=== PATIENT | female | born 1955 | race Caucasian/White ===

== ENCOUNTER → 2019-06-13 | Outpatient (CLI) | payer SELFPAY | PROVIDERS: Family Provider Physician Assistant Medical; Visit Provider Internal Medicine Medical Oncology | DX: C50.812 Malignant neoplasm of overlapping sites of left female breast (principal); C79.51 Secondary malignant neoplasm of bone; Z79.818 Long term (current) use of other agents affecting estrogen receptors and estrogen levels; I10 Essential (primary) hypertension; E78.5 Hyperlipidemia, unspecified; E11.9 Type 2 diabetes mellitus without complications; I25.10 Atherosclerotic heart disease of native coronary artery without angina pectoris; J45.909 Unspecified asthma, uncomplicated; K21.9 Gastro-esophageal reflux disease without esophagitis; F32.9 Major depressive disorder, single episode, unspecified; Z17.0 Estrogen receptor positive status [ER+]; Z92.3 Personal history of irradiation; Z95.5 Presence of coronary angioplasty implant and graft; Z95.1 Presence of aortocoronary bypass graft; Z79.2 Long term (current) use of antibiotics | CPT/HCPCS: 99214 ==

== ENCOUNTER 2019-10-05 10:55 | Outpatient (CLI) | payer MEDICARE, OTHER, SELFPAY ==
[2019-10-05 14:57] LABS: Basophils # 0.1 10^3/uL (0.0-0.1); Basophils % 0.8 %; Eosinophils # 0.2 10^3/uL (0.0-0.8); Eosinophils % 3.1 %; Hematocrit 42.4 % (37.0-47.0); Hemoglobin 13.3 g/dL (11.5-15.3); Lymphocytes # 1.7 10^3/uL (0.8-4.8); Lymphocytes % 28.5 %; Mean Corpuscular HGB Conc 31.4 g/dL (30.0-36.0); Mean Corpuscular Hemoglobin 29.8 pg (28.0-34.0); Mean Corpuscular Volume 94.9 fL (81-99); Monocytes # 0.3 10^3/uL (0.2-0.9); Monocytes % 5.1 %; Neutrophils # 3.8 10^3/uL (1.8-7.7); Neutrophils % 62.2 %; Nucleated Red Blood Cells % 0 %; Platelet Count 227 10^3/cmm (130-400); Red Blood Count 4.47 10^6/uL (4.1-5.3); White Blood Count 6.1 10^3/uL (4.0-10.0)
[2019-10-05 15:41] LABS: Alanine Aminotransferase 39 U/L (0-33); Albumin Level 3.9 g/dL (3.5-5.2); Alkaline Phosphatase 160 IU/L (35-105); Anion Gap 18.6 (5-19); Aspartate Amino Transferase 25 U/L (0-32); Blood Urea Nitrogen 12 mg/dL (8-23); Calcium 9.8 mg/dL (8.5-10.5); Carbon Dioxide 28 mmol/L (22-29); Chloride 96 mmol/L (98-107); Globulin 2.4 g/dL (1.3-4.6); Glomerular Filtration Rate 55.5 mL/min (90-130); Glucose 421 mg/dL (65-115); Osmolality Calculated 300 mOsm/kg (285-295); Potassium 4.6 mmol/L (3.5-5.1); Sodium 138 mmol/L (136-145); Total Bilirubin 0.3 mg/dL (0.15-1.2); Total Protein 6.3 g/dL (6.6-8.7)
[2019-10-06 06:06] LABS: CA 27.29 <8 U/mL (<38)
== END 2019-10-05 10:56 | disposition home or self-care (01) ==
LOC: ONCMED 15:26
PROVIDERS: PCP Physician Assistant Medical; Visit Provider Internal Medicine Medical Oncology
DX: C50.812 Malignant neoplasm of overlapping sites of left female breast (principal); C79.51 Secondary malignant neoplasm of bone
CPT/HCPCS: 36415; 80053; 85025; 86300

== ENCOUNTER 2019-10-06 06:50 | Outpatient (CLI) | payer MEDICARE, OTHER, SELFPAY ==
--- NOTE | 2019-10-06 15:10 | ONC FU_ITS ---
Dr. Gonzalez Patient Follow-Up Note Patient: Edie Dupont Unit #: [id number]: [id number] Dicatated By: Justo Gonzalez M.D.Date of Visit:Oct 06, 2019 Onc Med Follow-up/Prog Note Chief Complaint: Breast cancer/lung cancer. History of Present Illness: This is a 64 year-old woman with grade 3 invasive lobular carcinoma of the left breast, stage IV (T2, N0, M1), ER/KS positive and HER-2/olivier negative. She was diagnosed with cancer of the left breast in 2014. Ultrasound guided needle biopsy at the 3 o'clock position of the left breast on 04/08/2015 showed grade 2 invasive ductal carcinoma, ER positive at 98% and KS positive at 100%. The Ki-67 was unfavorable at 31.34%. It was negative for overexpression of HER-2/olivier, 1+ by IHC. On 06/17/2015 she underwent left breast lumpectomy with axillary lymph node sampling, including sentinel lymph node biopsy. Pathology showed grade 3 invasive pleomorphic lobular carcinoma measuring 3.8 cm in maximum diameter. There was no involvement in 1 sentinel lymph node and no involvement in an additional 2 axillary lymph nodes. Her disease was pathologic stage IIA (T2, N0, M0). She had been receiving medical oncology care with Dr. Jenae Lane, and she had been on adjuvant hormonal therapy with letrozole 2.5 mg daily. During evaluation for the breast cancer, she was found to have a 1.7 cm right lower lobe lung nodule, confirmed to be adenocarcinoma by needle biopsy on 07/31/2015. This was presumed to be a second primary nonsmall cell carcinoma, stage IA (T1a, N0, M0). She was treated with SBRT, completed on 11/03/2017 to a total dose of 5000 cGy. I had seen her initially on 11/09/2017. At that time she reported increasing pain in the lower back and lower buttock area radiating down the back of both legs. The pain was relieved with rest. A recent MRI of the lumbar spine from 10/26/2017 reported a mild broad-based disc protrusion at L4-5 with superior migration in the central and right subarticular zones. There was mild spinal stenosis and right recess stenosis. Also noted were multiple focal bone lesions, the largest in the L1 and L4 vertebral bodies is a 14 mm. The appearance was felt to be consistent with blastic metastatic involvement. It appeared to be a new finding compared to previous MRI of the thoracic spine from July 2008. At least initially I had recommended that she just continue hormonal therapy with letrozole pending further evaluation. Subsequent to her initial visit I had reviewed the MRI studies with a radiologist, and there was an interval increase in size of the L1 and L4 vertebral bodies. She had further evaluation with bone scan on 02/09/2018. It showed a new focus of bony activity involving the sternum inferiorly but no change in subtle increased activity at T8 and no change in subtle increased activity at the distal end of the right second or third rib. Review of the chest CT from 05/05/2016 showed a blastic lesion in the sternal body, a blastic lesion of the T8 vertebral body, and blastic lesion involving the distal end of the right second rib. There was no significant lumbar spine activity to correlate with the likely blastic metastatic lesions noted in the lumbar spine MRI at L1 and L4. There was arthritic type activity in both acromioclavicular joints, the left sternoclavicular joint, both knees, and the midtarsal regions of both feet. There was no abnormality on left knee radiograph to correlate with new increased uptake in the left distal femur or patella. She was seen for a followup visit on 02/15/2018. The findings on the imaging studies appeared to be consistent with slowly progressive metastatic bone involvement. As she was not symptomatic with it, she opted to just continue hormonal therapy with letrozole 2.5 mg daily. Her other medical illnesses include hypertension, hyperlipidemia, type II diabetes, coronary artery disease, asthma, GERD, JONES, peripheral neuropathy, and degenerative arthritis. She has history of depression. She is a nonsmoker. INTERIM HISTORY: Restaging CT scans of chest, abdomen, and pelvis on 11/14/2018 showed a focal irregular nodular subpleural opacity within the posterior aspect of the right lower lobe measuring 1.7 x 2.4 cm. The findings were felt to likely reflect post therapeutic change and appeared similar to prior studies. There was, however, increase in the degree of extensive bony metastatic disease. There were no other areas of metastatic involvement noted. I had seen her for a scheduled visit on 11/15/2018. With CT evidence of further progression of her bony metastatic disease, I had talked her about the possibility of transitioning her treatment to fulvestrant in combination with a CDK 4/6 inhibitor. Initially she was reluctant to change treatment, but eventually she did agree to begin a trial of therapy with fulvestrant in combination with abemacliclib. She then returned for a medication education visit, and after reviewing the possible side effects, she opted to defer treatment. She then had radiation oncology consultation with Dr. Mara Pearson in [place], and she was given palliative radiation to the lumbar spine. She completed treatment on 03/17/2019 to a total dose of 3000 cGy. On 03/29/2019 she began systemic therapy with fulvestrant in combination with abemacliclib. At day 15 of her first cycle of fulvestrant/abemacliclib her treatment was put on hold due to a significant increase in her liver enzymes, which included an SGOT of 784/45 and SGPT 420/45, both of which had been normal at baseline. The alkaline phosphatase had increased to 528, though it had previously been elevated, presumably due to the metastatic bone involvement. At the time she was having fatigue, anorexia, and back pain. The symptoms improved after stopping treatment, and her liver enzymes also improved. As of her 04/19/2019 she continued her treatment with fulvestrant, but without the CDK 4/6 inhibitor. She is seen for a follow-up visit by Telehealth. She has been feeling good generally. She has had good energy and she has been doing all of her normal activities. Her ECOG score is 0. Her appetite is good. She has not had fever. She had a terrible episode of hot flushing and sweating after her last fulvestrant injection. She otherwise has just occasional hot flashes. She has no shortness of breath, cough, or chest pain. She has no GI or complaints. She currently is not having any significant joint or bone pain. She says her back is much better. She does not complain of headache. She has numbness/tingling in her feet. The numbness in her hands has improved. Medications: Aspirin 1 Tablet (of 81 mg) Tablet, enteric coated Oral daily, Effexor XR 1 Tablet (of 75 mg) Capsule SR 24 HR Oral daily, Furosemide 1 Tablet (of 20 mg) Oral t.i.d., Gabapentin 1 Tablet (of 900 mg) Oral t.i.d., Isosorbide Mononitrate ER 1 Tablet (of 30 mg) Tablet SR 24 HR Oral b.i.d., Klor-Con 10 1 Tablet (of 10 meq) Tablet, controlled release Oral daily, Lansoprazole 1 drop(s) Liquid Oral daily, Levothyroxine Sodium 1 Tablet (of 75 mcg) Oral daily, Lisinopril 1 Tablet (of 5 mg) Oral daily, Metoprolol Tartrate 1 Tablet (of 100 mg) Oral b.i.d., NovoLIN N (100 Units/mL) Subcutaneous Take as Directed Allergies: Lyrica, Penicillins, Proventil HFA, and Sulfa Antibiotics. Review of Systems: Constitutional - She has been feeling pretty good and has been doing all her normal activities. Her appetite is good and weight is stable. No fever or chills. She had significant hot flashes with sweating following her last fulvestrant injection. ECOG score is 0, ENMT - No sinus congestion/drainage. No mouth sores. No sore throat or difficulty swallowing, Hematologic/Lymphatic - No abnormal bruising or bleeding, Respiratory - No shortness of breath. No cough. No pleuritic pain or hemoptysis, Cardiovascular - No angina pain. No palpitations, Gastrointestinal - No nausea or vomiting. Her heartburn is adequately managed with medicaiton. No diarrhea or constipation. No blood in the stool or black stools, Genitourinary (F) - No dysuria or hematuria. No urinary frequency. No urgency or incontinence, Musculoskeletal - No joint or bone pain. Her back pain is improved, Integumentary - No skin complications, Neurologic - No headache or dizziness. She has numbness and tingling in her feet. The numbness in her hands has improved, Psychiatric - No anxiety or depression. No insomnia. Physical Examination: Constitutional - She looks good generally. Lab/Imaging: CBC shows hemoglobin 13.3 g, white blood cell count 6100, and platelet count 227,000. Comprehensive metabolic profile shows stable renal function with BUN 12 and creatinine 1.0 mg/dL. Her blood sugar is significantly elevated, as always. SGOT is normal at 25 U/L with SGPT slightly elevated at 39 U/L. Alkaline phosphatase remains mildly elevated but stable at 160/105 IU/L. Bilirubin is normal at 0.5 mg/dL. Impression: 1. Patient with grade 3 lobular carcinoma of the left breast, ER/KS positive and HER-2/olivier negative. Her disease was stage IIA at initial diagnosis in July 2014. She has been on hormonal therapy with letrozole following lumpectomy and axillary lymph node sampling. 2. In October 2015 she underwent Cyber[employer]ife radiosurgery for adenocarcinoma involving the lower lobe of the right lung, stage IA (T1a, N0, M0). 3. 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 4. She currently is on treatment with doxycycline for tick fever. Her other medical illnesses include: 5. Hypertension. 6. Dyslipidemia. 7. Type II diabetes. 8. Coronary artery disease with previous angioplasty/stent placement. 9. Asthma. 10. GERD. 11. She has history of depression. Overall, her imaging studies and clinical course had been consistent with slowly progressive metastatic breast cancer. Her restaging CT scans on 11/14/2018 did show more significant progression of the metastatic bone involvement, though she was still not overtly symptomatic. However, given the extent of disease progression, I had recommended changing treatment to fulvestrant in combination with abemacliclib. Initially she had agreed to it, but following her teaching visit and reviewing the potential side effects, she opted to defer treatment. She then had radiation oncology consultation with Dr. Mara Pearson in [place]. She underwent palliative radiation to the lumbar spine. She completed treatment on 03/17/2019 to a total dose of 3000 cGy. She tolerated it well. On 03/29/2019 she began a trial of second line systemic therapy with fulvestrant in combination with abemacliclib. Her treatment was put on hold at day 15 due to a significant increase in her liver enzymes. During subsequent follow-up the liver enzymes recovered to baseline with some residual elevation of the alkaline phosphatase, which I assumed it was related to the metastatic bone involvement. She has since then continued treatment with fulvestrant alone. She has tolerated well. She has continued to show gradual improvement in her clinical status. Thus far there is been no evidence of progression of the breast cancer. Plan: She continues treatment with fulvestrant 500 mg by intramuscular injection monthly. Her other medications remain the same. I will see her again in 3 months, or sooner as needed. Signed By: Justo Gonzalez M.D. <<Signature on File>>
== END 2019-10-06 06:51 | disposition home or self-care (01) ==
LOC: ONCMED 06:52
PROVIDERS: PCP Physician Assistant Medical; Visit Provider Internal Medicine Medical Oncology
DX: C50.812 Malignant neoplasm of overlapping sites of left female breast (principal); C79.51 Secondary malignant neoplasm of bone; Z17.0 Estrogen receptor positive status [ER+]; I10 Essential (primary) hypertension; E78.5 Hyperlipidemia, unspecified; E11.9 Type 2 diabetes mellitus without complications; I25.10 Atherosclerotic heart disease of native coronary artery without angina pectoris; J45.909 Unspecified asthma, uncomplicated; K21.9 Gastro-esophageal reflux disease without esophagitis; Z79.818 Long term (current) use of other agents affecting estrogen receptors and estrogen levels; Z86.59 Personal history of other mental and behavioral disorders

== ENCOUNTER 2020-01-16 13:52 | Outpatient (CLI) | payer MEDICARE, OTHER, SELFPAY ==
--- NOTE | 2020-01-17 07:22 | ONC FU_ITS ---
Dr. Gonzalez Patient Follow-Up Note Patient: Edie Dupont Unit #: [id number]: 1955 Dicatated By: Justo Gonzalez M.D.Date of Visit:Jan 16, 2020 Onc Med Follow-up/Prog Note Chief Complaint: Breast cancer/lung cancer. History of Present Illness: This is a 64 year-old woman with grade 3 invasive lobular carcinoma of the left breast, stage IV (T2, N0, M1), ER/DC positive and HER-2/olivier negative. She was diagnosed with cancer of the left breast in 2014. Ultrasound guided needle biopsy at the 3 o'clock position of the left breast on 04/08/2015 showed grade 2 invasive ductal carcinoma, ER positive at 98% and DC positive at 100%. The Ki-67 was unfavorable at 31.34%. It was negative for overexpression of HER-2/olivier, 1+ by IHC. On 06/17/2015 she underwent left breast lumpectomy with axillary lymph node sampling, including sentinel lymph node biopsy. Pathology showed grade 3 invasive pleomorphic lobular carcinoma measuring 3.8 cm in maximum diameter. There was no involvement in 1 sentinel lymph node and no involvement in an additional 2 axillary lymph nodes. Her disease was pathologic stage IIA (T2, N0, M0). She had been receiving medical oncology care with Dr. Jenae Lane, and she had been on adjuvant hormonal therapy with letrozole 2.5 mg daily. During evaluation for the breast cancer, she was found to have a 1.7 cm right lower lobe lung nodule, confirmed to be adenocarcinoma by needle biopsy on 07/31/2015. This was presumed to be a second primary nonsmall cell carcinoma, stage IA (T1a, N0, M0). She was treated with SBRT, completed on 11/03/2017 to a total dose of 5000 cGy. I had seen her initially on 11/09/2017. At that time she reported increasing pain in the lower back and lower buttock area radiating down the back of both legs. The pain was relieved with rest. A recent MRI of the lumbar spine from 10/26/2017 reported a mild broad-based disc protrusion at L4-5 with superior migration in the central and right subarticular zones. There was mild spinal stenosis and right recess stenosis. Also noted were multiple focal bone lesions, the largest in the L1 and L4 vertebral bodies is a 14 mm. The appearance was felt to be consistent with blastic metastatic involvement. It appeared to be a new finding compared to previous MRI of the thoracic spine from July 2008. At least initially I had recommended that she just continue hormonal therapy with letrozole pending further evaluation. Subsequent to her initial visit I had reviewed the MRI studies with a radiologist, and there was an interval increase in size of the L1 and L4 vertebral bodies. She had further evaluation with bone scan on 02/09/2018. It showed a new focus of bony activity involving the sternum inferiorly but no change in subtle increased activity at T8 and no change in subtle increased activity at the distal end of the right second or third rib. Review of the chest CT from 05/05/2016 showed a blastic lesion in the sternal body, a blastic lesion of the T8 vertebral body, and blastic lesion involving the distal end of the right second rib. There was no significant lumbar spine activity to correlate with the likely blastic metastatic lesions noted in the lumbar spine MRI at L1 and L4. There was arthritic type activity in both acromioclavicular joints, the left sternoclavicular joint, both knees, and the midtarsal regions of both feet. There was no abnormality on left knee radiograph to correlate with new increased uptake in the left distal femur or patella. She was seen for a followup visit on 02/15/2018. The findings on the imaging studies appeared to be consistent with slowly progressive metastatic bone involvement. As she was not symptomatic with it, she opted to just continue hormonal therapy with letrozole 2.5 mg daily. Her other medical illnesses include hypertension, hyperlipidemia, type II diabetes, coronary artery disease, asthma, GERD, JONES, peripheral neuropathy, and degenerative arthritis. She has history of depression. She is a nonsmoker. INTERIM HISTORY: Restaging CT scans of chest, abdomen, and pelvis on 11/14/2018 showed a focal irregular nodular subpleural opacity within the posterior aspect of the right lower lobe measuring 1.7 x 2.4 cm. The findings were felt to likely reflect post therapeutic change and appeared similar to prior studies. There was, however, increase in the degree of extensive bony metastatic disease. There were no other areas of metastatic involvement noted. I had seen her for a scheduled visit on 11/15/2018. With CT evidence of further progression of her bony metastatic disease, I had talked her about the possibility of transitioning her treatment to fulvestrant in combination with a CDK 4/6 inhibitor. Initially she was reluctant to change treatment, but eventually she did agree to begin a trial of therapy with fulvestrant in combination with abemacliclib. She then returned for a medication education visit, and after reviewing the possible side effects, she opted to defer treatment. She then had radiation oncology consultation with Dr. Mara Pearson in [place], and she was given palliative radiation to the lumbar spine. She completed treatment on 03/17/2019 to a total dose of 3000 cGy. On 03/29/2019 she began systemic therapy with fulvestrant in combination with abemacliclib. At day 15 of her first cycle of fulvestrant/abemacliclib her treatment was put on hold due to a significant increase in her liver enzymes, which included an SGOT of 784/45 and SGPT 420/45, both of which had been normal at baseline. The alkaline phosphatase had increased to 528, though it had previously been elevated, presumably due to the metastatic bone involvement. At the time she was having fatigue, anorexia, and back pain. The symptoms improved after stopping treatment, and her liver enzymes also improved. As of her 04/19/2019 she continued her treatment with fulvestrant, but without the CDK 4/6 inhibitor. She is seen for a follow-up visit. She has been feeling fine. She has good energy and activity tolerance. Her ECOG score is 0. She has good appetite. She has not had fever. She has terrible hot flashes and sweating, both during the daytime and at night. She has had sore throat off and on in association with an episode of bronchitis/asthma. It is getting better, but she still has some shortness of breath and cough, and she is still using Xopenex at bedtime. She does not complain of chest pain. She has no GI or complaints. She has had some pain in her right shoulder/deltoid area. She has no other joint or bone pain. She does not complain of headache. She says her numbness/tingling is not as bad now. Medications: Aspirin 1 Tablet (of 81 mg) Tablet, enteric coated Oral daily, Effexor XR 1 Tablet (of 150 mg) Capsule SR 24 HR Oral daily, Furosemide 1 Tablet (of 60 mg) Oral every am, Gabapentin 1 Tablet (of 900 mg) Oral b.i.d., Klor-Con 10 1 Tablet (of 10 meq) Tablet, controlled release Oral daily, Lansoprazole 1 drop(s) Liquid Oral daily, Levothyroxine Sodium 1 Tablet (of 75 mcg) Oral daily, Lisinopril 1 Tablet (of 5 mg) Oral daily, Metoprolol Tartrate 1 Tablet (of 100 mg) Oral b.i.d., NovoLIN N (100 Units/mL) Subcutaneous Take as Directed Allergies: Lyrica, Penicillins, Proventil HFA, and Sulfa Antibiotics. Review of Systems: Constitutional - She is feeling good. Her energy is good and she has normal activity without restrictions. Her appetite is good and weight is stable. No fevers. She is having terrible persistent hot flashes and sweating both day and night. ECOG score is 0, ENMT - No sinus congestion/drainage. No mouth sores. No sore throat or difficulty swallowing, Hematologic/Lymphatic - No abnormal bruising or bleeding, Respiratory - No shortness of breath. She has a cough, and she was recently treated for bronchitis/asthma. She is using Xopenex for it. No pleuritic pain or hemoptysis, Cardiovascular - No angina pain. No palpitations, Gastrointestinal - No nausea or vomiting. No heartburn or acid reflux. No diarrhea or constipation. No blood in the stool or black stools, Genitourinary (F) - No dysuria or hematuria. No urinary frequency. No urgency or incontinence, Musculoskeletal - She has been having some pain in the right shoulder/deltoid area. She has no other joint or bone pain, Integumentary - No skin complications, Neurologic - No headache. She has no more dizziness than usual. Her numbness/tingling is not as bad. No other focal neurologic symptoms, Psychiatric - No anxiety or depression. No insomnia. Vital Signs: Performed on Jan 16, 2020 14:19 Height - 61.00 in Weight - 181 lbs (LOW) BSA - 1.81 sq.m BMI - 34.20 (HIGH) Temperature - 97.5 F (LOW) Pulse - 67 /min Respiration - 16 /min BP - 122/60 mm(hg) O2 Sat - 98 % Pain - 0 Physical Examination: Constitutional - She looks good generally, Eyes - Sclerae nonicteric. Conjunctivae clear, ENMT - No lesions noted in the oral cavity, Hematologic/Lymphatic - No cervical, clavicular, or axillary adenopathy, Respiratory - Lungs are clear with good air movement bilaterally, Cardiovascular - Heart rhythm is regular. There is a II/ systolic murmur. There is no gallop or rub noted, Abdomen - Soft. Liver and spleen are not enlarged. There is no abdominal mass or ascites noted and there is no inguinal adenopathy, Extremities - No edema, Neurologic - No focal neurologic deficits noted. Lab/Imaging: Test performed on Jan 16, 2020 10:51 Glucose 293 mg/dL BUN 21 mg/dL Creatinine 0.85 mg/dL Cr Clearance (Est) 84.85 mL/min Sodium 136 mmol/L Potassium 5.0 mmol/L Chloride 98 mmol/L CO2 30 mmol/L Calcium 9.7 mg/dL Protein, Total 6.4 g/dL Albumin 3.9 g/dL Bilirubin, Total 0.3 mg/dL Alkaline Phosphatase 158 IU/L AST (SGOT) 18 IU/L ALT (SGPT) 34 IU/L WBC 6.6 10^9/L RBC 4.50 10^12/L HGB 13.5 g/dL HCT 40.1 % MCV 89.1 fl MCH 30.0 pg MCHC 33.7 g/dL RDW 11.9 % Platelet Count 217 10^9/L MPV 11.6 fL Neutrophils (Gran) 4.15 10^9/L Lymphocytes 1.62 10^9/L Monocytes 0.33 10^9/L Eosinophils 0.39 10^9/L Basophils 0.09 10^9/L Manual Lymphocytes 25 % Manual Monocytes 5 % Manual Eosinophils 6 % Manual Basophils 1 % Impression: 1. Patient with grade 3 lobular carcinoma of the left breast, ER/DC positive and HER-2/olivier negative. Her disease was stage IIA at initial diagnosis in July 2014. She has been on hormonal therapy with letrozole following lumpectomy and axillary lymph node sampling. 2. In October 2015 she underwent [employer] radiosurgery for adenocarcinoma involving the lower lobe of the right lung, stage IA (T1a, N0, M0). 3. 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 4. She currently is on treatment with doxycycline for tick fever. Her other medical illnesses include: 5. Hypertension. 6. Dyslipidemia. 7. Type II diabetes. 8. Coronary artery disease with previous angioplasty/stent placement. 9. Asthma. 10. GERD. 11. She has history of depression. Overall, her imaging studies and clinical course had been consistent with slowly progressive metastatic breast cancer. Her restaging CT scans on 11/14/2018 did show more significant progression of the metastatic bone involvement, though she was still not overtly symptomatic. However, given the extent of disease progression, I had recommended changing treatment to fulvestrant in combination with abemacliclib. Initially she had agreed to it, but following her teaching visit and reviewing the potential side effects, she opted to defer treatment. She then had radiation oncology consultation with Dr. Mara Pearson in [place]. She underwent palliative radiation to the lumbar spine. She completed treatment on 03/17/2019 to a total dose of 3000 cGy. She tolerated it well. On 03/29/2019 she began a trial of second line systemic therapy with fulvestrant in combination with abemacliclib. Her treatment was put on hold at day 15 due to a significant increase in her liver enzymes. During subsequent follow-up the liver enzymes recovered to baseline with some residual elevation of the alkaline phosphatase, which I assumed it was related to the metastatic bone involvement. She then continued treatment with fulvestrant alone. Thus far she has tolerated it well. During follow-up there has been gradual decline in the alkaline phosphatase level and she also has been showing gradual improvement in her performance status, so that she does appear to be showing response by clinical evaluation. Plan: She will continue treatment with fulvestrant 500 mg by intramuscular injection monthly. I will now add denosumab 120 mg by subcutaneous injection monthly for the metastatic bone involvement. Her other medications remain the same. I will see her again in 3 months. Signed By: Justo Gonzalez M.D. <<Signature on File>>
== END 2020-01-16 13:53 | disposition home or self-care (01) ==
PROVIDERS: PCP Physician Assistant Medical; Visit Provider Internal Medicine Medical Oncology
DX: C50.812 Malignant neoplasm of overlapping sites of left female breast (principal); C79.51 Secondary malignant neoplasm of bone; Z85.118 Personal history of other malignant neoplasm of bronchus and lung; A93.8 Other specified arthropod-borne viral fevers; Z79.2 Long term (current) use of antibiotics; I10 Essential (primary) hypertension; E78.5 Hyperlipidemia, unspecified; E11.9 Type 2 diabetes mellitus without complications; I25.10 Atherosclerotic heart disease of native coronary artery without angina pectoris; Z95.1 Presence of aortocoronary bypass graft; J45.909 Unspecified asthma, uncomplicated; K21.9 Gastro-esophageal reflux disease without esophagitis; Z79.818 Long term (current) use of other agents affecting estrogen receptors and estrogen levels; Z79.899 Other long term (current) drug therapy; Z92.3 Personal history of irradiation
CPT/HCPCS: 99214

== ENCOUNTER 2020-04-16 10:54 | Outpatient (CLI) | payer MEDICARE, OTHER, SELFPAY ==
--- NOTE | 2020-04-16 12:29 | ONC FU_ITS ---
Dr. Gonzalez Patient Follow-Up Note Patient: Edie Dupont Unit #: [id number]: 1955 Dicatated By: Justo Gonzalez M.D.Date of Visit:Apr 16, 2020 Onc Med Follow-up/Prog Note Chief Complaint: Breast cancer/lung cancer. History of Present Illness: This is a 64 year-old woman with grade 3 invasive lobular carcinoma of the left breast, stage IV (T2, N0, M1), ER/HI positive and HER-2/olivier negative. She was diagnosed with cancer of the left breast in 2014. Ultrasound guided needle biopsy at the 3 o'clock position of the left breast on 04/08/2015 showed grade 2 invasive ductal carcinoma, ER positive at 98% and HI positive at 100%. The Ki-67 was unfavorable at 31.34%. It was negative for overexpression of HER-2/olivier, 1+ by IHC. On 06/17/2015 she underwent left breast lumpectomy with axillary lymph node sampling, including sentinel lymph node biopsy. Pathology showed grade 3 invasive pleomorphic lobular carcinoma measuring 3.8 cm in maximum diameter. There was no involvement in 1 sentinel lymph node and no involvement in an additional 2 axillary lymph nodes. Her disease was pathologic stage IIA (T2, N0, M0). She had been receiving medical oncology care with Dr. Jenae Lane, and she had been on adjuvant hormonal therapy with letrozole 2.5 mg daily. During evaluation for the breast cancer, she was found to have a 1.7 cm right lower lobe lung nodule, confirmed to be adenocarcinoma by needle biopsy on 07/31/2015. This was presumed to be a second primary nonsmall cell carcinoma, stage IA (T1a, N0, M0). She was treated with SBRT, completed on 11/03/2017 to a total dose of 5000 cGy. I had seen her initially on 11/09/2017. At that time she reported increasing pain in the lower back and lower buttock area radiating down the back of both legs. The pain was relieved with rest. A recent MRI of the lumbar spine from 10/26/2017 reported a mild broad-based disc protrusion at L4-5 with superior migration in the central and right subarticular zones. There was mild spinal stenosis and right recess stenosis. Also noted were multiple focal bone lesions, the largest in the L1 and L4 vertebral bodies is a 14 mm. The appearance was felt to be consistent with blastic metastatic involvement. It appeared to be a new finding compared to previous MRI of the thoracic spine from July 2008. At least initially I had recommended that she just continue hormonal therapy with letrozole pending further evaluation. Subsequent to her initial visit I had reviewed the MRI studies with a radiologist, and there was an interval increase in size of the L1 and L4 vertebral bodies. She had further evaluation with bone scan on 02/09/2018. It showed a new focus of bony activity involving the sternum inferiorly but no change in subtle increased activity at T8 and no change in subtle increased activity at the distal end of the right second or third rib. Review of the chest CT from 05/05/2016 showed a blastic lesion in the sternal body, a blastic lesion of the T8 vertebral body, and blastic lesion involving the distal end of the right second rib. There was no significant lumbar spine activity to correlate with the likely blastic metastatic lesions noted in the lumbar spine MRI at L1 and L4. There was arthritic type activity in both acromioclavicular joints, the left sternoclavicular joint, both knees, and the midtarsal regions of both feet. There was no abnormality on left knee radiograph to correlate with new increased uptake in the left distal femur or patella. She was seen for a followup visit on 02/15/2018. The findings on the imaging studies appeared to be consistent with slowly progressive metastatic bone involvement. As she was not symptomatic with it, she opted to just continue hormonal therapy with letrozole 2.5 mg daily. Her other medical illnesses include hypertension, hyperlipidemia, type II diabetes, coronary artery disease, asthma, GERD, JONES, peripheral neuropathy, and degenerative arthritis. She has history of depression. She is a nonsmoker. INTERIM HISTORY: Restaging CT scans of chest, abdomen, and pelvis on 11/14/2018 showed a focal irregular nodular subpleural opacity within the posterior aspect of the right lower lobe measuring 1.7 x 2.4 cm. The findings were felt to likely reflect post therapeutic change and appeared similar to prior studies. There was, however, increase in the degree of extensive bony metastatic disease. There were no other areas of metastatic involvement noted. I had seen her for a scheduled visit on 11/15/2018. With CT evidence of further progression of her bony metastatic disease, I had talked her about the possibility of transitioning her treatment to fulvestrant in combination with a CDK 4/6 inhibitor. Initially she was reluctant to change treatment, but eventually she did agree to begin a trial of therapy with fulvestrant in combination with abemacliclib. She then returned for a medication education visit, and after reviewing the possible side effects, she opted to defer treatment. She then had radiation oncology consultation with Dr. Mara Pearson in [place], and she was given palliative radiation to the lumbar spine. She completed treatment on 03/17/2019 to a total dose of 3000 cGy. On 03/29/2019 she began systemic therapy with fulvestrant in combination with abemacliclib. At day 15 of her first cycle of fulvestrant/abemacliclib her treatment was put on hold due to a significant increase in her liver enzymes, which included an SGOT of 784/45 and SGPT 420/45, both of which had been normal at baseline. The alkaline phosphatase had increased to 528, though it had previously been elevated, presumably due to the metastatic bone involvement. At the time she was having fatigue, anorexia, and back pain. The symptoms improved after stopping treatment, and her liver enzymes also improved. As of her 04/19/2019 she continued her treatment with fulvestrant, but without the CDK 4/6 inhibitor. She was able to tolerate the fulvestrant with no adverse effects. As of her follow-up visit in December 2019, she also began monthly injections of denosumab for the metastatic bone involvement. She is seen for a follow-up visit. She has been feeling fine. Since her last visit, she has undergone a cardiac cath procedure, which reportedly showed no significant coronary artery obstruction. She had also developed some new GI symptoms, including nausea and anorexia. She was continuing to have acid reflux symptoms despite taking Nexium. She began treatment with Carafate, and those symptoms improved. She has had good energy and she has normal activity. ECOG score is 0. Appetite is better now. She has not had fever. She does have some hot flashes/sweating, but not too bad. She has no shortness of breath, cough, or chest pain. She currently has no GI symptoms or other than she still occasionally has diarrhea. Bladder function is fine. She has been having pain in her right shoulder, but that resolved following a local injection. She has no other joint or bone pain. She does not complain of headache. She sometimes has dizziness. She has numbness/tingling associated with diabetic neuropathy. Medications: Aspirin 1 Tablet (of 81 mg) Tablet, enteric coated Oral daily, Effexor XR 1 Tablet (of 150 mg) Capsule SR 24 HR Oral daily, Furosemide 1 Tablet (of 60 mg) Oral every am, Gabapentin 1 Tablet (of 900 mg) Oral b.i.d., Klor-Con 10 1 Tablet (of 10 meq) Tablet, controlled release Oral daily, Lansoprazole 1 drop(s) Liquid Oral daily, Levothyroxine Sodium 1 Tablet (of 75 mcg) Oral daily, Lisinopril 1 Tablet (of 5 mg) Oral daily, Metoprolol Tartrate 1 Tablet (of 100 mg) Oral b.i.d., NovoLIN N (100 Units/mL) Subcutaneous Take as Directed Allergies: Lyrica, Penicillins, Proventil HFA, and Sulfa Antibiotics. Review of Systems: Constitutional - Her energy is OK. She has normal activity. She had lost her appetite, but recently has been better after she started taking Carafate. Her weight is stable. No fever, night sweats, or hot flashes. ECOG score is 0, ENMT - No sinus congestion/drainage. No mouth sores. No sore throat or difficulty swallowing, Hematologic/Lymphatic - No abnormal bruising or bleeding, Respiratory - No shortness of breath. No cough. No pleuritic pain or hemoptysis, Cardiovascular - No angina pain. No palpitations, Gastrointestinal - She was having nausea. She also was having acid reflux symptoms despite taking Nexium. She is doing better on the Carafate. She occasionally has diarrhea. No blood in the stool or black stools, Genitourinary (F) - No dysuria or hematuria. No urinary frequency. No urgency or incontinence, Musculoskeletal - She has been having pain in her right shoulder, but that has resolved following a local injection. She has no other joint or bone pain, Integumentary - No skin rash, Neurologic - No headache. She sometimes has dizziness. She has numbness/tingling. No other focal neurologic symptoms, Psychiatric - She has some anxiety/depression. No insomnia. Vital Signs: Performed on Apr 16, 2020 10:59 Height - 61.00 in Weight - 174 lbs (LOW) BSA - 1.78 sq.m BMI - 32.88 (HIGH) Temperature - 98.0 F (LOW) Pulse - 79 /min Respiration - 16 /min BP - 136/64 mm(hg) O2 Sat - 98 % Pain - 0 Physical Examination: Constitutional - She looks good generally, Eyes - Sclerae nonicteric. Conjunctivae clear, ENMT - No lesions noted in the oral cavity, Hematologic/Lymphatic - No cervical, clavicular, or axillary adenopathy, Respiratory - Lungs are clear with good air movement bilaterally, Cardiovascular - Heart rhythm is regular. There is a II/ systolic murmur. There is no gallop or rub noted, Abdomen - Soft. Liver and spleen are not enlarged. There is no abdominal mass or ascites noted and there is no inguinal adenopathy, Back/Spine - There is no bony tenderness in the spine, Extremities - No edema, Integumentary - No skin eruption, Neurologic - No focal neurologic deficits noted. Lab/Imaging: CBC shows hemoglobin 14.5 g white blood cell count 6000, and platelet count 220,000. Comprehensive metabolic profile shows slightly elevated alkaline phosphatase at 131/104 U/L. The other liver enzymes are normal. The nonfasting blood sugar is significantly elevated at 490 mg/dL. Impression: 1. Patient with grade 3 lobular carcinoma of the left breast, ER/HI positive and HER-2/olivier negative. Her disease was stage IIA at initial diagnosis in July 2014. She has been on hormonal therapy with letrozole following lumpectomy and axillary lymph node sampling. 2. In October 2015 she underwent Cyber[employer]ife radiosurgery for adenocarcinoma involving the lower lobe of the right lung, stage IA (T1a, N0, M0). 3. 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 4. She currently is on treatment with doxycycline for tick fever. Her other medical illnesses include: 5. Hypertension. 6. Dyslipidemia. 7. Type II diabetes. 8. Coronary artery disease with previous angioplasty/stent placement. 9. Asthma. 10. GERD. 11. She has history of depression. Overall, her imaging studies and clinical course had been consistent with slowly progressive metastatic breast cancer. Her restaging CT scans on 11/14/2018 did show more significant progression of the metastatic bone involvement, though she was still not overtly symptomatic. However, given the extent of disease progression, I had recommended changing treatment to fulvestrant in combination with abemacliclib. Initially she had agreed to it, but following her teaching visit and reviewing the potential side effects, she opted to defer treatment. She then had radiation oncology consultation with Dr. Mara Pearson in [place]. She underwent palliative radiation to the lumbar spine. She completed treatment on 03/17/2019 to a total dose of 3000 cGy. She tolerated it well. On 03/29/2019 she began a trial of second line systemic therapy with fulvestrant in combination with abemacliclib. Her treatment was put on hold at day 15 due to a significant increase in her liver enzymes. During subsequent follow-up the liver enzymes recovered to baseline with some residual elevation of the alkaline phosphatase, which I assumed it was related to the metastatic bone involvement. She then continued treatment with fulvestrant as a single modality. As of her follow-up visit in December 2019 she also began monthly denosumab injections for the metastatic bone involvement. At this point she appears to be tolerating her treatment well, thus far with no obvious progression of the breast cancer. Plan: She will continue treatment with fulvestrant 500 mg by intramuscular injection monthly. She will continue denosumab 120 mg by subcutaneous injection monthly for the metastatic bone involvement. She will be scheduled for a follow-up visit in 3 months. Signed By: Justo Gonzalez M.D. <<Signature on File>>
== END 2020-04-16 10:55 | disposition home or self-care (01) ==
LOC: ONCMED 10:55
PROVIDERS: PCP Physician Assistant Medical; Visit Provider Internal Medicine Medical Oncology
DX: C50.812 Malignant neoplasm of overlapping sites of left female breast (principal); Z17.0 Estrogen receptor positive status [ER+]; C79.51 Secondary malignant neoplasm of bone; A93.8 Other specified arthropod-borne viral fevers; I10 Essential (primary) hypertension; E78.5 Hyperlipidemia, unspecified; E11.9 Type 2 diabetes mellitus without complications; I25.10 Atherosclerotic heart disease of native coronary artery without angina pectoris; Z95.5 Presence of coronary angioplasty implant and graft; J45.909 Unspecified asthma, uncomplicated; K21.9 Gastro-esophageal reflux disease without esophagitis; Z86.59 Personal history of other mental and behavioral disorders; Z79.818 Long term (current) use of other agents affecting estrogen receptors and estrogen levels
CPT/HCPCS: G0463

== ENCOUNTER → 2020-06-27 00:01 | Outpatient (BNVA) | payer MEDICARE, OTHER, SELFPAY | PROVIDERS: PCP Physician Assistant Medical; Visit Provider Surgery | DX: Z20.828 Contact with and (suspected) exposure to other viral communicable diseases (principal) | CPT/HCPCS: 87635 ==

== ENCOUNTER 2020-07-04 08:38 | Day surgery (SDC) | payer MEDICARE, OTHER, SELFPAY ==
[2020-07-02 15:17] VITALS: BMI 33.0
[2020-07-04 09:00] VITALS: BP 137/70; RESP 18; TEMP 36.8; O2SAT 99
[2020-07-04] MEDS: sodium chloride 0.9% 1,000 ML 30 ML IV (09:11)
[2020-07-04 09:22] LABS: Glucose Point of Care 309 mg/dL (70-110)
[2020-07-04] MEDS: insulin regular-human 100 units/1 mL 10 UNIT IVP ×2 (09:26→11:21)
[2020-07-04 09:54] LABS: Glucose Point of Care 324 mg/dL (70-110)
--- NOTE | 2020-07-04 09:59 | P.ANESASSM_ITS ---
Pre-Anesthetic Assessment Pre-Anesthetic Assessment: Height/Weight: Height 1.55 m Weight 79.379 kg Temp Resp BP Pulse Ox 98.2 F 18 137/70 99 07/04/20 09:00 07/04/20 09:00 07/04/20 09:00 07/04/20 09:00 Preop Diagnosis: panendoscopy Proposed Procedure: Operation Date: 07/04/20 10:00 Proposed Procedures p EGD 09194, 49916, K12.9, Z12.11(Not Applicable) - Geronimo Zeng MD s Colonoscopy(Not Applicable) - Geronimo Zeng MD Familial anesthetic complications: None Was Beta Edgard taken within 24 hours: N/A Last intake: Intake Last Liquid Date 07/03/20 Last Liquid Time 20:30 Last Solid Date 07/02/20 Last Solid Time 18:00 Social: Social History: No alcohol and No tobacco Exam: Pre-Anes Outpt Exam: alert, oriented x 3, clear to auscultation bilatera lly and regular rate & rhythm Airway: Cervical ROM: WNL MP: 2 Dentition: False Pulmonary: Pulmonary: Asthma and COPD Comments: hx lung cancer (mets) CV/HEM: CV/HEM: CAD (5 stents - no longer on plavix, patient states she had cath last summer and was told everything looks good) and AL (X2) Metabolic: Metabolic: DM, Hyperlipidemia, Morbid obesity and Thyroid Comments: BG > 300, 10 units regular insulin IV given Musc/skel: Comments: hx metastatic breast, lung, and spine cancer Anesthetic Plan: ASA status: 4 Anesthesia: MAC Risk of > 500 ml blood loss (7ml/kg in children): No PFSH Anesthesia PFSH: Medical History (Updated 06/14/20 @ 18:15 by Geronimo Zeng MD) Breast cancer Depression Diabetes GERD (gastroesophageal reflux disease) Glaucoma Herpes simplex Hypertension Hypothyroidism Lung cancer Neuropathy Surgical History (Updated 06/14/20 @ 11:57 by Geronimo Zeng MD) H/O colonoscopy yrs ago H/O foot surgery H/O shoulder surgery History of lumpectomy of left breast History of tonsillectomy Family History Other CAD (coronary artery disease) Cancer Hypertension Denies family history of Anesthesia complication Bleeding disorder Social History (Updated 12/18/20 @ 11:30 by Lillian Hanna LPN) Smoking and tobacco status: never smoked Alcohol intake: never Lives independently: Yes Marital status: Single Current occupational status: retired History of recent travel: No Data Anesthesia Other Labs: Laboratory Results - last 48 hr 07/04/20 07/04/20 09:10 09:50 POC Glucose 309 H 324 H Cardiac Studies: No Data to Display
--- NOTE | 2020-07-04 10:39 | W.PM.OPSUD ---
Surgery/Procedure H&P Update DATE OF PROCEDURE: July 04, 2020 DATE H&P PERFORMED: 06/14/20 H&P UPDATE INFORMATION: I have reviewed H&P completed within last 30 days, I have examined patient prior to procedure and No changes to prior documentation PREOP DIAGNOSIS: panendoscopy PLANNED PROCEDURE: Operation Date: 07/04/20 10:00 Proposed Procedures p EGD 17733, 12110, K12.9, Z12.11(Not Applicable) - Geronimo Zeng MD s Colonoscopy(Not Applicable) - Geronimo Zeng MD
[2020-07-04 10:47] LABS: Glucose Point of Care 320 mg/dL (70-110)
[2020-07-04 11:22] VITALS: BP 95/56; PULSE 79; RESP 16; TEMP 36.2; O2SAT 95
[2020-07-04 11:37] VITALS: BP 107/63; PULSE 85; RESP 16; O2SAT 98
--- NOTE | 2020-07-04 19:29 | ANE.PACU2 ---
Inpatient post-anesthesia follow up: Airway intact: Yes Vital signs: Temperature 97.2 F Pulse Rate 85 Respiratory Rate 16 Blood Pressure 107/63 Pulse Oximetry 98 Oxygen Delivery Me thod Room Air Oxygen Flow Rate Fraction of Inspir ed Oxygen Hydration adequate: Yes Nausea and vomiting: No Pain level: 2 Mental status: Baseline
== END 2020-07-04 11:52 | disposition home or self-care (01) ==
PROVIDERS: PCP Physician Assistant Medical; Visit Provider Surgery
PROC: 0DJ08ZZ Inspection of Upper Intestinal Tract, Via Natural or Artificial Opening Endoscopic (ICD-10-PCS; CPT 43235; principal; 2020-07-04 10:00)
PROC: 0DJD8ZZ Inspection of Lower Intestinal Tract, Via Natural or Artificial Opening Endoscopic (ICD-10-PCS; CPT 45378; 2020-07-04 10:00)
DX: Z12.11 Encounter for screening for malignant neoplasm of colon (principal); K44.9 Diaphragmatic hernia without obstruction or gangrene; K29.70 Gastritis, unspecified, without bleeding; K63.5 Polyp of colon; K57.30 Diverticulosis of large intestine without perforation or abscess without bleeding; K64.8 Other hemorrhoids; K21.9 Gastro-esophageal reflux disease without esophagitis; Z79.82 Long term (current) use of aspirin; Z85.3 Personal history of malignant neoplasm of breast; F32.9 Major depressive disorder, single episode, unspecified; I10 Essential (primary) hypertension; E03.9 Hypothyroidism, unspecified; Z85.118 Personal history of other malignant neoplasm of bronchus and lung; E11.40 Type 2 diabetes mellitus with diabetic neuropathy, unspecified; Z79.4 Long term (current) use of insulin; Z82.49 Family history of ischemic heart disease and other diseases of the circulatory system
CPT/HCPCS: 12345; 36416; 43235; 45380; 82962; 88305; 96374; 96375; J1815; J2704; J3490; J7030

== ENCOUNTER 2020-07-16 09:30 | Outpatient (CLI) | payer MEDICARE, OTHER, SELFPAY ==
--- NOTE | 2020-07-19 16:33 | ONC FU_ITS ---
Dr. Gonzalez Patient Follow-Up Note Patient: Edie Dupont Unit #: [id number]: [id number] Dicatated By: Justo Gonzalez M.D.Date of Visit:Jul 16, 2020 Onc Med Follow-up/Prog Note Chief Complaint: Breast cancer/lung cancer. History of Present Illness: This is a 65 year-old woman with grade 3 invasive lobular carcinoma of the left breast, stage IV (T2, N0, M1), ER/AR positive and HER-2/olivier negative. She was diagnosed with cancer of the left breast in 2014. Ultrasound guided needle biopsy at the 3 o'clock position of the left breast on 04/08/2015 showed grade 2 invasive ductal carcinoma, ER positive at 98% and AR positive at 100%. The Ki-67 was unfavorable at 31.34%. It was negative for overexpression of HER-2/olivier, 1+ by IHC. On 06/17/2015 she underwent left breast lumpectomy with axillary lymph node sampling, including sentinel lymph node biopsy. Pathology showed grade 3 invasive pleomorphic lobular carcinoma measuring 3.8 cm in maximum diameter. There was no involvement in 1 sentinel lymph node and no involvement in an additional 2 axillary lymph nodes. Her disease was pathologic stage IIA (T2, N0, M0). She had been receiving medical oncology care with Dr. Jenae Lane, and she had been on adjuvant hormonal therapy with letrozole 2.5 mg daily. During evaluation for the breast cancer, she was found to have a 1.7 cm right lower lobe lung nodule, confirmed to be adenocarcinoma by needle biopsy on 07/31/2015. This was presumed to be a second primary nonsmall cell carcinoma, stage IA (T1a, N0, M0). She was treated with SBRT, completed on 11/03/2017 to a total dose of 5000 cGy. I had seen her initially on 11/09/2017. At that time she reported increasing pain in the lower back and lower buttock area radiating down the back of both legs. The pain was relieved with rest. A recent MRI of the lumbar spine from 10/26/2017 reported a mild broad-based disc protrusion at L4-5 with superior migration in the central and right subarticular zones. There was mild spinal stenosis and right recess stenosis. Also noted were multiple focal bone lesions, the largest in the L1 and L4 vertebral bodies is a 14 mm. The appearance was felt to be consistent with blastic metastatic involvement. It appeared to be a new finding compared to previous MRI of the thoracic spine from July 2008. At least initially I had recommended that she just continue hormonal therapy with letrozole pending further evaluation. Subsequent to her initial visit I had reviewed the MRI studies with a radiologist, and there was an interval increase in size of the L1 and L4 vertebral bodies. She had further evaluation with bone scan on 02/09/2018. It showed a new focus of bony activity involving the sternum inferiorly but no change in subtle increased activity at T8 and no change in subtle increased activity at the distal end of the right second or third rib. Review of the chest CT from 05/05/2016 showed a blastic lesion in the sternal body, a blastic lesion of the T8 vertebral body, and blastic lesion involving the distal end of the right second rib. There was no significant lumbar spine activity to correlate with the likely blastic metastatic lesions noted in the lumbar spine MRI at L1 and L4. There was arthritic type activity in both acromioclavicular joints, the left sternoclavicular joint, both knees, and the midtarsal regions of both feet. There was no abnormality on left knee radiograph to correlate with new increased uptake in the left distal femur or patella. She was seen for a followup visit on 02/15/2018. The findings on the imaging studies appeared to be consistent with slowly progressive metastatic bone involvement. As she was not symptomatic with it, she opted to just continue hormonal therapy with letrozole 2.[address] scans of chest, abdomen, and pelvis on 11/14/2018 showed a focal irregular nodular subpleural opacity within the posterior aspect of the right lower lobe measuring 1.7 x 2.4 cm. The findings were felt to likely reflect post therapeutic change and appeared similar to prior studies. There was, however, increase in the degree of extensive bony metastatic disease. There were no other areas of metastatic involvement noted. I had seen her for a scheduled visit on 11/15/2018. With CT evidence of further progression of her bony metastatic disease, I had talked her about the possibility of transitioning her treatment to fulvestrant in combination with a CDK 4/6 inhibitor. Initially she was reluctant to change treatment, but eventually she did agree to begin a trial of therapy with fulvestrant in combination with abemacliclib. She then returned for a medication education visit, and after reviewing the possible side effects, she opted to defer treatment. She then had radiation oncology consultation with Dr. Mara Pearson in [place], and she was given palliative radiation to the lumbar spine. She completed treatment on 03/17/2019 to a total dose of 3000 cGy. On 03/29/2019 she began systemic therapy with fulvestrant in combination with abemacliclib. At day 15 of her first cycle of fulvestrant/abemacliclib her treatment was put on hold due to a significant increase in her liver enzymes, which included an SGOT of 784/45 and SGPT 420/45, both of which had been normal at baseline. The alkaline phosphatase had increased to 528, though it had previously been elevated, presumably due to the metastatic bone involvement. At the time she was having fatigue, anorexia, and back pain. The symptoms improved after stopping treatment, and her liver enzymes also improved. As of her 04/19/2019 she continued her treatment with fulvestrant, but without the CDK 4/6 inhibitor. She was able to tolerate the fulvestrant with no adverse effects. As of her follow-up visit in December 2019, she also began monthly injections of denosumab for the metastatic bone involvement. Her other medical illnesses include hypertension, hyperlipidemia, type II diabetes, coronary artery disease, asthma, GERD, JONES, peripheral neuropathy, and degenerative arthritis. She has anxiety/depression. She is a nonsmoker. INTERIM HISTORY: She is seen for a follow-up visit. She has been feeling pretty good generally. Her main complaint is that since her last visit she has had 3 episodes in which both legs go completely numb, starting at the toes and moving upwards. The episodes did not last long. The most recent was about a month ago. She indicates that when she leans back she feels some pressure in her spine, but she otherwise does not have back pain or any other joint or bone pain. Her energy improved after she started on vitamin D supplementation. She has pretty much normal activity now. ECOG score is 0. She was having problems with appetite, but that is better now. She has no fever, night sweats, or hot flashes. She has no shortness of breath, cough, or chest pain. Her acid reflux is adequately managed. She has no other GI or complaints. She does not complain of headache or dizziness. She has had no other focal neurologic symptoms. Medications: Aspirin 1 Tablet (of 81 mg) Tablet, enteric coated Oral daily, Effexor XR 1 Tablet (of 150 mg) Capsule SR 24 HR Oral daily, Famotidine 1 (20 mg) Tablet Oral b.i.d., Furosemide 1 Tablet (of 60 mg) Oral every am, Gabapentin 1 Tablet (of 900 mg) Oral b.i.d., Klor-Con 10 1 Tablet (of 10 meq) Tablet, controlled release Oral daily, Lansoprazole 1 drop(s) Liquid Oral daily, Levothyroxine Sodium 1 Tablet (of 75 mcg) Oral daily, Lisinopril 1 Tablet (of 5 mg) Oral daily, Metoprolol Tartrate 1 Tablet (of 100 mg) Oral b.i.d., NovoLIN N (100 Units/mL) Subcutaneous Take as Directed Allergies: Lyrica, Penicillins, Proventil HFA, and Sulfa Antibiotics. Vital Signs: Performed on Jul 16, 2020 09:08 Height - 61.00 in Weight - 178 lbs (HIGH) BSA - 1.80 sq.m BMI - 33.63 (HIGH) Temperature - 97.8 F (LOW) Pulse - 72 /min Respiration - 16 /min BP - 128/76 mm(hg) O2 Sat - 97 % Pain - 0 Physical Examination: Constitutional - She looks good generally, Eyes - Sclerae nonicteric. Conjunctivae clear, ENMT - No lesions noted in the oral cavity, Hematologic/Lymphatic - No cervical, clavicular, or axillary adenopathy, Respiratory - Lungs are clear with good air movement bilaterally, Cardiovascular - Heart rhythm is regular. There is a II/ systolic murmur. There is no gallop or rub noted, Abdomen - Soft. Liver and spleen are not enlarged. There is no abdominal mass or ascites noted and there is no inguinal adenopathy, Extremities - No edema, Integumentary - No skin eruption, Neurologic - No focal neurologic deficits noted. Lab/Imaging: Test performed on Jul 05, 2020 10:26 Glucose 425 mg/dL BUN 11 mg/dL Creatinine 0.84 mg/dL Cr Clearance (Est) 80.98 mL/min Sodium 135 mmol/L Potassium 4.7 mmol/L Chloride 99 mmol/L CO2 26 mmol/L Calcium 9.1 mg/dL Protein, Total 5.8 g/dL Albumin 3.6 g/dL Bilirubin, Total 0.4 mg/dL Alkaline Phosphatase 151 IU/L AST (SGOT) 42 IU/L ALT (SGPT) 35 IU/L WBC 5.6 10^9/L RBC 4.69 10^12/L HGB 13.9 g/dL HCT 42.2 % MCV 90.0 fl MCH 29.6 pg MCHC 32.9 g/dL RDW 11.8 % Platelet Count 235 10^9/L MPV 11.0 fL Neutrophils (Gran) 3.36 10^9/L Lymphocytes 1.62 10^9/L Monocytes 0.27 10^9/L Eosinophils 0.30 10^9/L Basophils 0.06 10^9/L Manual Lymphocytes 29 % Manual Monocytes 5 % Manual Eosinophils 5 % Manual Basophils 1 % Problem List: 1. Grade 3 lobular carcinoma of the left breast, ER/AR positive and HER-2/olivier negative. Her disease was stage IIA at initial diagnosis in July 2014. She had been on hormonal therapy with letrozole following lumpectomy and axillary lymph node sampling. 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 2. She underwent palliative radiation to the lumbar spine, completed on 03/17/2019 to a total dose of 3000 cGy. 3. On 03/29/2019 she began a trial of second line systemic therapy with fulvestrant in combination with abemacliclib. Her treatment was put on hold at day 15 due to a significant increase in her liver enzymes. She subsequently was able to restart fulvestrant monotherapy, which she tolerated well. 4. In October 2015 she underwent [employer] radiosurgery for adenocarcinoma involving the lower lobe of the right lung, stage IA (T1a, N0, M0). 6. Hypertension. 7. Dyslipidemia. 8. Type II diabetes. 9. Coronary artery disease with previous angioplasty/stent placement. 10. Asthma. 11. GERD. 12. She has anxiety/depression. Problems Addressed with this Encounter and Plan: 1. 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 She completed palliative radiation to the lumbar spine on 03/17/2019. On 03/29/2019 she began a trial of second line systemic therapy with fulvestrant in combination with abemacliclib. Her treatment was put on hold at day 15 due to a significant increase in her liver enzymes. She subsequently was able to restart fulvestrant monotherapy, which she has tolerated well. During follow-up there has been some variation in her energy/activity tolerance, though recently has been better, and overall she has been doing well clinically. Main concern is that she has had several episodes of numbness and both legs, which raises concern that she could have impending spinal cord impingement. In the absence of any evidence of disease progression she will continue treatment with fulvestrant 500 mg by intramuscular injection monthly. She will be scheduled for repeat MRI of the thoracic and lumbar spine. She will have further evaluation as indicated. I will tentatively plan a follow-up visit in 3 months. 2. Mestatic bone involvement. She will continue preventive therapy with denosumab 120 mg by subcutaneous injection monthly. 3. She has type 2 diabetes which is very labile and not well controlled. I will make arrangements for her to see an r d internship. 4. Recently she has some worsening of anxiety. I discussed some possible options for that, but she does not wish to try a higher dose of venlafaxine and she also prefers not to take alprazolam. Signed By: Justo Gonzalez M.D. <<Signature on File>>
== END 2020-07-16 09:31 | disposition home or self-care (01) ==
LOC: ONCMED 07-17 09:27
PROVIDERS: PCP Physician Assistant Medical; Visit Provider Internal Medicine Medical Oncology
DX: C79.51 Secondary malignant neoplasm of bone (principal); C50.812 Malignant neoplasm of overlapping sites of left female breast; Z17.0 Estrogen receptor positive status [ER+]; F41.9 Anxiety disorder, unspecified; Z79.818 Long term (current) use of other agents affecting estrogen receptors and estrogen levels; Z79.899 Other long term (current) drug therapy; Z92.3 Personal history of irradiation
CPT/HCPCS: 99214

== ENCOUNTER → 2020-08-29 09:54 | Outpatient (BNVA) | payer MEDICARE, OTHER, SELFPAY | PROVIDERS: PCP Physician Assistant Medical; Referring Provider Internal Medicine Medical Oncology; Visit Provider Internal Medicine | DX: C50.919 Malignant neoplasm of unspecified site of unspecified female breast (principal); E11.649 Type 2 diabetes mellitus with hypoglycemia without coma; E11.65 Type 2 diabetes mellitus with hyperglycemia; Z79.4 Long term (current) use of insulin | CPT/HCPCS: 95250; 99205 ==

== ENCOUNTER → 2020-09-12 10:14 | Outpatient (BNVA) | payer MEDICARE, OTHER, SELFPAY | PROVIDERS: PCP Physician Assistant Medical; Visit Provider Internal Medicine | DX: E11.649 Type 2 diabetes mellitus with hypoglycemia without coma (principal); E11.65 Type 2 diabetes mellitus with hyperglycemia; Z79.4 Long term (current) use of insulin | CPT/HCPCS: 99214 ==

== ENCOUNTER 2020-10-08 10:00 | Outpatient (CLI) | payer MEDICARE, OTHER, SELFPAY ==
--- NOTE | 2020-10-08 12:47 | ONC FU_ITS ---
Dr. Gonzalez Patient Follow-Up Note Patient: Edie Dupont Unit #: [id number]: [id number] Dicatated By: Justo Gonzalez M.D.Date of Visit:Oct 08, 2020 Onc Med Follow-up/Prog Note Chief Complaint: Breast cancer/lung cancer. History of Present Illness: This is a 65 year-old woman with grade 3 invasive lobular carcinoma of the left breast, stage IV (T2, N0, M1), ER/LA positive and HER-2/olivier negative. She was diagnosed with cancer of the left breast in 2014. Ultrasound guided needle biopsy at the 3 o'clock position of the left breast on 04/08/2015 showed grade 2 invasive ductal carcinoma, ER positive at 98% and LA positive at 100%. The Ki-67 was unfavorable at 31.34%. It was negative for overexpression of HER-2/olivier, 1+ by IHC. On 06/17/2015 she underwent left breast lumpectomy with axillary lymph node sampling, including sentinel lymph node biopsy. Pathology showed grade 3 invasive pleomorphic lobular carcinoma measuring 3.8 cm in maximum diameter. There was no involvement in 1 sentinel lymph node and no involvement in an additional 2 axillary lymph nodes. Her disease was pathologic stage IIA (T2, N0, M0). She had been receiving medical oncology care with Dr. Jenae Lane, and she had been on adjuvant hormonal therapy with letrozole 2.5 mg daily. During evaluation for the breast cancer, she was found to have a 1.7 cm right lower lobe lung nodule, confirmed to be adenocarcinoma by needle biopsy on 07/31/2015. This was presumed to be a second primary nonsmall cell carcinoma, stage IA (T1a, N0, M0). She was treated with SBRT, completed on 11/03/2017 to a total dose of 5000 cGy. I had seen her initially on 11/09/2017. At that time she reported increasing pain in the lower back and lower buttock area radiating down the back of both legs. The pain was relieved with rest. A recent MRI of the lumbar spine from 10/26/2017 reported a mild broad-based disc protrusion at L4-5 with superior migration in the central and right subarticular zones. There was mild spinal stenosis and right recess stenosis. Also noted were multiple focal bone lesions, the largest in the L1 and L4 vertebral bodies is a 14 mm. The appearance was felt to be consistent with blastic metastatic involvement. It appeared to be a new finding compared to previous MRI of the thoracic spine from July 2008. At least initially I had recommended that she just continue hormonal therapy with letrozole pending further evaluation. Subsequent to her initial visit I had reviewed the MRI studies with a radiologist, and there was an interval increase in size of the L1 and L4 vertebral bodies. She had further evaluation with bone scan on 02/09/2018. It showed a new focus of bony activity involving the sternum inferiorly but no change in subtle increased activity at T8 and no change in subtle increased activity at the distal end of the right second or third rib. Review of the chest CT from 05/05/2016 showed a blastic lesion in the sternal body, a blastic lesion of the T8 vertebral body, and blastic lesion involving the distal end of the right second rib. There was no significant lumbar spine activity to correlate with the likely blastic metastatic lesions noted in the lumbar spine MRI at L1 and L4. There was arthritic type activity in both acromioclavicular joints, the left sternoclavicular joint, both knees, and the midtarsal regions of both feet. There was no abnormality on left knee radiograph to correlate with new increased uptake in the left distal femur or patella. She was seen for a followup visit on 02/15/2018. The findings on the imaging studies appeared to be consistent with slowly progressive metastatic bone involvement. As she was not symptomatic with it, she opted to just continue hormonal therapy with letrozole 2.[address] scans of chest, abdomen, and pelvis on 11/14/2018 showed a focal irregular nodular subpleural opacity within the posterior aspect of the right lower lobe measuring 1.7 x 2.4 cm. The findings were felt to likely reflect post therapeutic change and appeared similar to prior studies. There was, however, increase in the degree of extensive bony metastatic disease. There were no other areas of metastatic involvement noted. I had seen her for a scheduled visit on 11/15/2018. With CT evidence of further progression of her bony metastatic disease, I had talked her about the possibility of transitioning her treatment to fulvestrant in combination with a CDK 4/6 inhibitor. Initially she was reluctant to change treatment, but eventually she did agree to begin a trial of therapy with fulvestrant in combination with abemacliclib. She then returned for a medication education visit, and after reviewing the possible side effects, she opted to defer treatment. She then had radiation oncology consultation with Dr. Mara Pearson in [place], and she was given palliative radiation to the lumbar spine. She completed treatment on 03/17/2019 to a total dose of 3000 cGy. On 03/29/2019 she began systemic therapy with fulvestrant in combination with abemacliclib. At day 15 of her first cycle of fulvestrant/abemacliclib her treatment was put on hold due to a significant increase in her liver enzymes, which included an SGOT of 784/45 and SGPT 420/45, both of which had been normal at baseline. The alkaline phosphatase had increased to 528, though it had previously been elevated, presumably due to the metastatic bone involvement. At the time she was having fatigue, anorexia, and back pain. The symptoms improved after stopping treatment, and her liver enzymes also improved. As of her 04/19/2019 she continued her treatment with fulvestrant, but without the CDK 4/6 inhibitor. She was able to tolerate the fulvestrant with no adverse effects. As of her follow-up visit in December 2019, she also began monthly injections of denosumab for the metastatic bone involvement. Her other medical illnesses include hypertension, hyperlipidemia, type II diabetes, coronary artery disease, asthma, GERD, JONES, peripheral neuropathy, and degenerative arthritis. She has anxiety/depression. She is a nonsmoker. 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 There was no evidence for pathologic compression fracture in the spinal canal appeared grossly patent. Her lumbar spine MRI also showed multiple sclerotic osseous lesions consistent with osteoblastic metastases. There was no pathologic compression fracture and no enhancing epidural soft tissue disease. There were degenerative changes with inflammatory enhancement associated with prominent facet arthropathy at L4-5. There was moderate to severe discogenic central canal stenosis at that level and there was mild to moderate bilateral neural foraminal narrowing at L4-5 and L5-S1. She has been feeling pretty good generally. She is still pretty active, though she sometimes has to force herself to get going. Her ECOG score is 1. Appetite is fair. She has not had fever. She has hot flashes which are sometimes horrific. She has allergy related sinus symptoms. She does not complain of shortness of breath, cough, or chest pain. She has acid reflux, but it is adequately managed with her medication. She has no other GI or complaints. She has no joint or bone pain unless she does something dumb . She continues to have occasional episodes of tingling which goes down both legs. She has no other focal neurologic symptoms. She has chronic anxiety. She has continued treatment with Levemir and NovoLog for her diabetes, and she recently increased her Levemir dosage to 100 units daily. She takes the NovoLog AC. Medications: Aspirin 1 Tablet (of 81 mg) Tablet, enteric coated Oral daily, Effexor XR 1 Tablet (of 150 mg) Capsule SR 24 HR Oral daily, Famotidine 1 (20 mg) Tablet Oral b.i.d., Furosemide 1 Tablet (of 60 mg) Oral every am, Gabapentin 1 Tablet (of 900 mg) Oral b.i.d., Klor-Con 10 1 Tablet (of 10 meq) Tablet, controlled release Oral daily, Lansoprazole 1 drop(s) Liquid Oral daily, Levothyroxine Sodium 1 Tablet (of 75 mcg) Oral daily, Lisinopril 1 Tablet (of 5 mg) Oral daily, Metoprolol Tartrate 1 Tablet (of 100 mg) Oral b.i.d., NovoLIN N (100 Units/mL) Subcutaneous Take as Directed Allergies: Lyrica, Penicillins, Proventil HFA, and Sulfa Antibiotics. Vital Signs: Performed on Oct 08, 2020 09:55 Height - 61.00 in Weight - 171 lbs (LOW) BSA - 1.77 sq.m BMI - 32.31 (HIGH) Temperature - 98.0 F (LOW) Pulse - 58 /min (LOW) Respiration - 16 /min BP - 122/70 mm(hg) O2 Sat - 96 % Pain - 0 Physical Examination: Constitutional - She looks good generally, Eyes - Sclerae nonicteric. Conjunctivae clear, ENMT - No lesions noted in the oral cavity, Hematologic/Lymphatic - No cervical, clavicular, or axillary adenopathy, Respiratory - Lungs are clear with good air movement bilaterally, Cardiovascular - Heart rhythm is regular. There is a II/ systolic murmur. There is no gallop or rub noted, Abdomen - Soft. Liver and spleen are not enlarged. There is no abdominal mass or ascites noted and there is no inguinal adenopathy, Extremities - No edema, Integumentary - No skin eruption, Neurologic - No focal neurologic deficits noted. Lab/Imaging: Test performed on Oct 07, 2020 08:32 Glucose 425 mg/dL BUN 24 mg/dL Creatinine 0.79 mg/dL Cr Clearance (Est) 88.08 mL/min Sodium 134 mmol/L Potassium 5.8 mmol/L Chloride 99 mmol/L CO2 23 mmol/L Calcium 9.1 mg/dL Protein, Total 6.2 g/dL Albumin 3.6 g/dL Bilirubin, Total 0.4 mg/dL Alkaline Phosphatase 249 IU/L AST (SGOT) 72 IU/L ALT (SGPT) 86 IU/L WBC 5.5 10^9/L RBC 4.84 10^12/L HGB 14.0 g/dL HCT 43.0 % MCV 88.8 fl MCH 28.9 pg MCHC 32.6 g/dL RDW 12.7 % Platelet Count 218 10^9/L MPV 11.5 fL Neutrophils (Gran) 3.33 10^9/L Lymphocytes 1.51 10^9/L Monocytes 0.37 10^9/L Eosinophils 0.17 10^9/L Basophils 0.06 10^9/L Manual Lymphocytes 28 % Manual Monocytes 7 % Manual Eosinophils 3 % Manual Basophils 1 % Problem List: 1. Grade 3 lobular carcinoma of the left breast, ER/LA positive and HER-2/olivier negative. Her disease was stage IIA at initial diagnosis in July 2014. She had been on hormonal therapy with letrozole following lumpectomy and axillary lymph node sampling. 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 2. She underwent palliative radiation to the lumbar spine, completed on 03/17/2019 to a total dose of 3000 cGy. 3. On 03/29/2019 she began a trial of second line systemic therapy with fulvestrant in combination with abemacliclib. Her treatment was put on hold at day 15 due to a significant increase in her liver enzymes. She subsequently was able to restart fulvestrant monotherapy, which she tolerated well. 4. In October 2015 she underwent [employer] radiosurgery for adenocarcinoma involving the lower lobe of the right lung, stage IA (T1a, N0, M0). 6. Hypertension. 7. Dyslipidemia. 8. Type II diabetes. 9. Coronary artery disease with previous angioplasty/stent placement. 10. Asthma. 11. GERD. 12. She has anxiety/depression. Problems Addressed with this Encounter and Plan: 1. 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 She completed palliative radiation to the lumbar spine on 03/17/2019. On 03/29/2019 she began a trial of second line systemic therapy with fulvestrant in combination with abemacliclib. Her treatment was put on hold at day 15 due to a significant increase in her liver enzymes. She subsequently was able to restart fulvestrant monotherapy, which she has tolerated well. During follow-up she has not complained of any significant bone pain, but she has been having occasional episodes of numbness/tingling in both legs. Her repeat MRI of the thoracic and lumbar spine on 08/09/2020 showed extensive osteoblastic metastatic disease, but no evidence of associated epidural mass/cord compression. There was moderate to severe central canal stenosis associated with degenerative disc disease at L4-5. Since then her clinical status has remained stable. Her liver enzymes are now slightly elevated but with more significant elevation of the alkaline phosphatase compared to the SGOT/SGPT, and I suspect some component is related to the metastatic bone involvement. I will need to review the MRI scans from July to compared to previous studies, but I suspect that she is having progression of her metastatic bone involvement. As such, I also will check and see if next generation sequencing may be available on her lumpectomy specimen from 2014. In the meantime, she will continue treatment with fulvestrant 500 mg by intramuscular injection monthly. 2. Mestatic bone involvement. She will continue preventive therapy with denosumab 120 mg by subcutaneous injection monthly. 3. She has type 2 diabetes which has been very labile and not well controlled. She is now under the care of an client services assistant. Signed By: Justo Gonzalez M.D. <<Signature on File>>
== END 2020-10-08 10:01 | disposition home or self-care (01) ==
LOC: ONCMED 10:01
PROVIDERS: PCP Physician Assistant Medical; Visit Provider Internal Medicine Medical Oncology
DX: C50.812 Malignant neoplasm of overlapping sites of left female breast (principal); Z17.0 Estrogen receptor positive status [ER+]; C78.01 Secondary malignant neoplasm of right lung; I10 Essential (primary) hypertension; E78.5 Hyperlipidemia, unspecified; E11.59 Type 2 diabetes mellitus with other circulatory complications; I25.10 Atherosclerotic heart disease of native coronary artery without angina pectoris; Z95.5 Presence of coronary angioplasty implant and graft; J45.909 Unspecified asthma, uncomplicated; K21.9 Gastro-esophageal reflux disease without esophagitis; F41.9 Anxiety disorder, unspecified; F32.9 Major depressive disorder, single episode, unspecified; Z79.811 Long term (current) use of aromatase inhibitors; Z79.899 Other long term (current) drug therapy
CPT/HCPCS: 99215

== ENCOUNTER → 2021-01-09 09:02 | Outpatient (BNVA) | payer MEDICARE, OTHER, SELFPAY | PROVIDERS: PCP Physician Assistant Medical; Visit Provider Internal Medicine Medical Oncology | DX: C34.90 Malignant neoplasm of unspecified part of unspecified bronchus or lung (principal); C50.919 Malignant neoplasm of unspecified site of unspecified female breast | CPT/HCPCS: 80053; 85025 ==

== ENCOUNTER 2021-01-14 14:00 | Outpatient (CLI) | payer MEDICARE, OTHER, SELFPAY ==
--- NOTE | 2021-01-27 07:40 | ONC FU_ITS ---
Dr. Gonzalez Patient Follow-Up Note Patient: Edie Dupont Unit #: [id number]: [id number] Dicatated By: Justo Gonzalez M.D.Date of Visit:Jan 14, 2021 Onc Med Follow-up/Prog Note Chief Complaint: Breast cancer/lung cancer. History of Present Illness: This is a 65 year-old woman with grade 3 invasive lobular carcinoma of the left breast, stage IV (T2, N0, M1), ER/MT positive and HER-2/olivier negative. She was diagnosed with cancer of the left breast in 2014. Ultrasound guided needle biopsy at the 3 o'clock position of the left breast on 04/08/2015 showed grade 2 invasive ductal carcinoma, ER positive at 98% and MT positive at 100%. The Ki-67 was unfavorable at 31.34%. It was negative for overexpression of HER-2/olivier, 1+ by IHC. On 06/17/2015 she underwent left breast lumpectomy with axillary lymph node sampling, including sentinel lymph node biopsy. Pathology showed grade 3 invasive pleomorphic lobular carcinoma measuring 3.8 cm in maximum diameter. There was no involvement in 1 sentinel lymph node and no involvement in an additional 2 axillary lymph nodes. Her disease was pathologic stage IIA (T2, N0, M0). She had been receiving medical oncology care with Dr. Jenae aLne, and she had been on adjuvant hormonal therapy with letrozole 2.5 mg daily. During evaluation for the breast cancer, she was found to have a 1.7 cm right lower lobe lung nodule, confirmed to be adenocarcinoma by needle biopsy on 07/31/2015. This was presumed to be a second primary nonsmall cell carcinoma, stage IA (T1a, N0, M0). She was treated with SBRT, completed on 11/03/2017 to a total dose of 5000 cGy. I had seen her initially on 11/09/2017. At that time she reported increasing pain in the lower back and lower buttock area radiating down the back of both legs. The pain was relieved with rest. A recent MRI of the lumbar spine from 10/26/2017 reported a mild broad-based disc protrusion at L4-5 with superior migration in the central and right subarticular zones. There was mild spinal stenosis and right recess stenosis. Also noted were multiple focal bone lesions, the largest in the L1 and L4 vertebral bodies is a 14 mm. The appearance was felt to be consistent with blastic metastatic involvement. It appeared to be a new finding compared to previous MRI of the thoracic spine from July 2008. At least initially I had recommended that she just continue hormonal therapy with letrozole pending further evaluation. Subsequent to her initial visit I had reviewed the MRI studies with a radiologist, and there was an interval increase in size of the L1 and L4 vertebral bodies. She had further evaluation with bone scan on 02/09/2018. It showed a new focus of bony activity involving the sternum inferiorly but no change in subtle increased activity at T8 and no change in subtle increased activity at the distal end of the right second or third rib. Review of the chest CT from 05/05/2016 showed a blastic lesion in the sternal body, a blastic lesion of the T8 vertebral body, and blastic lesion involving the distal end of the right second rib. There was no significant lumbar spine activity to correlate with the likely blastic metastatic lesions noted in the lumbar spine MRI at L1 and L4. There was arthritic type activity in both acromioclavicular joints, the left sternoclavicular joint, both knees, and the midtarsal regions of both feet. There was no abnormality on left knee radiograph to correlate with new increased uptake in the left distal femur or patella. She was seen for a followup visit on 02/15/2018. The findings on the imaging studies appeared to be consistent with slowly progressive metastatic bone involvement. As she was not symptomatic with it, she opted to just continue hormonal therapy with letrozole 2.[address] scans of chest, abdomen, and pelvis on 11/14/2018 showed a focal irregular nodular subpleural opacity within the posterior aspect of the right lower lobe measuring 1.7 x 2.4 cm. The findings were felt to likely reflect post therapeutic change and appeared similar to prior studies. There was, however, increase in the degree of extensive bony metastatic disease. There were no other areas of metastatic involvement noted. I had seen her for a scheduled visit on 11/15/2018. With CT evidence of further progression of her bony metastatic disease, I had talked her about the possibility of transitioning her treatment to fulvestrant in combination with a CDK 4/6 inhibitor. Initially she was reluctant to change treatment, but eventually she did agree to begin a trial of therapy with fulvestrant in combination with abemacliclib. She then returned for a medication education visit, and after reviewing the possible side effects, she opted to defer treatment. She then had radiation oncology consultation with Dr. Mara Pearson in [place], and she was given palliative radiation to the lumbar spine. She completed treatment on 03/17/2019 to a total dose of 3000 cGy. On 03/29/2019 she began systemic therapy with fulvestrant in combination with abemacliclib. At day 15 of her first cycle of fulvestrant/abemacliclib her treatment was put on hold due to a significant increase in her liver enzymes, which included an SGOT of 784/45 and SGPT 420/45, both of which had been normal at baseline. The alkaline phosphatase had increased to 528, though it had previously been elevated, presumably due to the metastatic bone involvement. At the time she was having fatigue, anorexia, and back pain. The symptoms improved after stopping treatment, and her liver enzymes also improved. As of her 04/19/2019 she continued her treatment with fulvestrant, but without the CDK 4/6 inhibitor. She was able to tolerate the fulvestrant with no adverse effects. As of her follow-up visit in December 2019, she also began monthly injections of denosumab for the metastatic bone involvement. Her other medical illnesses include hypertension, hyperlipidemia, coronary artery disease, asthma, GERD, JONES, peripheral neuropathy, and degenerative arthritis. She has anxiety/depression. She is a nonsmoker. 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 There was no evidence for pathologic compression fracture in the spinal canal appeared grossly patent. Her lumbar spine MRI also showed multiple sclerotic osseous lesions consistent with osteoblastic metastases. There was no pathologic compression fracture and no enhancing epidural soft tissue disease. There were degenerative changes with inflammatory enhancement associated with prominent facet arthropathy at L4-5. There was moderate to severe discogenic central canal stenosis at that level and there was mild to moderate bilateral neural foraminal narrowing at L4-5 and L5-S1. As of her follow-up visit on 10/08/2020 she appeared stable clinically. I opted to continue her same treatment, but I did request an next generation sequencing study from her biopsy in 2014. It did confirm that her tumor was ER/MT positive and HER-2/olivier negative. It also was a ER positive. It showed no actionable mutations and the tumor was noted to be MSI stable with low mutational burden and with negative PD-L1 expression. She is seen for a follow-up visit. She has not been feeling as good generally, but that she attributes to her diabetes being totally out of control. She says that some days she feels so bad she can hardly get out of bed. Most days she is able to do light work. Her ECOG score is 1. Her appetite has been okay. She has not had fever. She does have some hot flashes and sweating. She has not had sore mouth or throat. She does not complain of shortness of breath, cough, or chest pain. She has no GI/ complaints other than some acid reflux. She occasionally has lower back pain, but she says it is not bad. She has no other joint or bone pain. She does not complain of headache. She sometimes has dizziness. She has numbness/tingling in her hands and feet. Medications: Aspirin 1 Tablet (of 81 mg) Tablet, enteric coated Oral daily, Effexor XR 1 Tablet (of 150 mg) Capsule SR 24 HR Oral daily, Famotidine 1 (20 mg) Tablet Oral b.i.d., Furosemide 1 Tablet (of 60 mg) Oral every am, Gabapentin 1 Tablet (of 900 mg) Oral b.i.d., Klor-Con 10 1 Tablet (of 10 meq) Tablet, controlled release Oral daily, Lansoprazole 1 drop(s) Liquid Oral daily, Levothyroxine Sodium 1 Tablet (of 75 mcg) Oral daily, Lisinopril 1 Tablet (of 5 mg) Oral daily, Metoprolol Tartrate 1 Tablet (of 100 mg) Oral b.i.d., NovoLIN N (100 Units/mL) Subcutaneous Take as Directed Allergies: Lyrica, Penicillins, Proventil HFA, and Sulfa Antibiotics. Vital Signs: Performed on Jan 14, 2021 13:56 Height - 61.00 in Weight - 164 lbs (LOW) BSA - 1.74 sq.m BMI - 30.99 (HIGH) Temperature - 99.3 F (HIGH) Pulse - 70 /min Respiration - 18 /min BP - 114/56 mm(hg) O2 Sat - 97 % Pain - 0 Physical Examination: Constitutional - She looks good generally, Eyes - Sclerae nonicteric. Conjunctivae clear, ENMT - No lesions noted in the oral cavity, Hematologic/Lymphatic - No cervical, clavicular, or axillary adenopathy, Respiratory - Lungs are clear with good air movement bilaterally, Cardiovascular - Heart rhythm is regular. There is a II/ systolic murmur. There is no gallop or rub noted, Abdomen - Soft. Liver and spleen are not enlarged. There is no abdominal mass or ascites noted and there is no inguinal adenopathy, Extremities - No edema, Neurologic - No focal neurologic deficits noted. Lab/Imaging: Test performed on Oct 07, 2020 08:32 Glucose 425 mg/dL BUN 24 mg/dL Creatinine 0.79 mg/dL Cr Clearance (Est) 88.08 mL/min Sodium 134 mmol/L Potassium 5.8 mmol/L Chloride 99 mmol/L CO2 23 mmol/L Calcium 9.1 mg/dL Protein, Total 6.2 g/dL Albumin 3.6 g/dL Bilirubin, Total 0.4 mg/dL Alkaline Phosphatase 249 IU/L AST (SGOT) 72 IU/L ALT (SGPT) 86 IU/L WBC 5.5 10^9/L RBC 4.84 10^12/L HGB 14.0 g/dL HCT 43.0 % MCV 88.8 fl MCH 28.9 pg MCHC 32.6 g/dL RDW 12.7 % Platelet Count 218 10^9/L MPV 11.5 fL Neutrophils (Gran) 3.33 10^9/L Lymphocytes 1.51 10^9/L Monocytes 0.37 10^9/L Eosinophils 0.17 10^9/L Basophils 0.06 10^9/L Manual Lymphocytes 28 % Manual Monocytes 7 % Manual Eosinophils 3 % Manual Basophils 1 % Problem List: 1. Grade 3 lobular carcinoma of the left breast, ER/MT positive and HER-2/olivier negative. Her disease was stage IIA at initial diagnosis in July 2014. She had been on hormonal therapy with letrozole following lumpectomy and axillary lymph node sampling. 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 2. She underwent palliative radiation to the lumbar spine, completed on 03/17/2019 to a total dose of 3000 cGy. 3. On 03/29/2019 she began a trial of second line systemic therapy with fulvestrant in combination with abemacliclib. Her treatment was put on hold at day 15 due to a significant increase in her liver enzymes. She subsequently was able to restart fulvestrant monotherapy, which she tolerated well. 4. In October 2015 she underwent [employer]ife radiosurgery for adenocarcinoma involving the lower lobe of the right lung, stage IA (T1a, N0, M0). 6. Hypertension. 7. Dyslipidemia. 8. Type I diabetes. 9. Coronary artery disease with previous angioplasty/stent placement. 10. Asthma. 11. GERD. 12. She has anxiety/depression. Problems Addressed with this Encounter and Plan: 1. 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 She completed palliative radiation to the lumbar spine on 03/17/2019. On 03/29/2019 she began a trial of second line systemic therapy with fulvestrant in combination with abemacliclib. Her treatment was put on hold at day 15 due to a significant increase in her liver enzymes. She subsequently was able to restart fulvestrant monotherapy, which she has tolerated well. During follow-up she has not complained of any significant bone pain, but she has been having occasional episodes of numbness/tingling in both legs. Her repeat MRI of the thoracic and lumbar spine on 08/09/2020 showed extensive osteoblastic metastatic disease, but no evidence of associated epidural mass/cord compression. There was moderate to severe central canal stenosis associated with degenerative disc disease at L4-5. 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 As long as her clinical status remains stable she will continue third line hormonal therapy with fulvestrant 500 mg by intramuscular injection monthly. She will be scheduled for a follow-up visit in 3 months. 2. Mestatic bone involvement. She will continue preventive therapy with denosumab 120 mg by subcutaneous injection monthly. 3. She has diabetes, initially treated his type II but now determined to be type I. Her current treatment includes 120 mg of Levemir daily together with regular insulin as needed. The latter has not been taken on a consistent basis. She has a continuous monitoring device in place. She will now take blood sugar readings on a set schedule 4 times a day and she is given instructions for coverage with regular insulin. She is scheduled to see Dr. Holland for a follow-up visit in January. Signed By: Justo Gonzalez M.D. <<Signature on File>>
== END 2021-01-14 14:01 | disposition home or self-care (01) ==
LOC: ONCMED 01-15 06:59
PROVIDERS: PCP Physician Assistant Medical; Visit Provider Internal Medicine Medical Oncology
DX: C79.51 Secondary malignant neoplasm of bone (principal); C50.912 Malignant neoplasm of unspecified site of left female breast; Z17.0 Estrogen receptor positive status [ER+]; Z92.3 Personal history of irradiation; Z85.118 Personal history of other malignant neoplasm of bronchus and lung; I10 Essential (primary) hypertension; E78.5 Hyperlipidemia, unspecified; E10.9 Type 1 diabetes mellitus without complications; I25.10 Atherosclerotic heart disease of native coronary artery without angina pectoris; Z95.5 Presence of coronary angioplasty implant and graft; J45.20 Mild intermittent asthma, uncomplicated; K21.9 Gastro-esophageal reflux disease without esophagitis; F32.9 Major depressive disorder, single episode, unspecified; F41.9 Anxiety disorder, unspecified; Z79.899 Other long term (current) drug therapy; Z79.811 Long term (current) use of aromatase inhibitors
CPT/HCPCS: 99214

== ENCOUNTER 2021-02-25 09:14 | Outpatient (CLI) | payer MEDICARE, OTHER, SELFPAY ==
--- NOTE | 2021-02-25 09:23 | MM_ITS ---
WS: [id number] BILATERAL DIGITAL DIAGNOSTIC MAMMOGRAM MAMMOGRAPHY WITH CAD CLINICAL INFORMATION: HX OF BREAST CA;METASTATIC ADENOCARCINOMA TO SKELETAL BONE COMPARISON: and August 28, 2016 TECHNIQUE: Bilateral CC, MLO, and ML views. FINDINGS: Scattered fibroglandular densities bilaterally. Vascular calcification. Surgical clips left axilla wi th prior lumpectomy. No suspicious focal mass, asymmetry, calcifications, or architectural distortion. No evidence of regan gnancy. MM/[place] [id number] IMPRESSION: BI-RADS: 2-Benign FOLLOW UP: 1 Year Follow-up Recommend return to annual diagnostic mammography.
== END 2021-02-25 09:15 | disposition home or self-care (01) ==
LOC: RADSHAW 09:19
PROVIDERS: PCP Physician Assistant Medical; Visit Provider Physician Assistant Medical
DX: Z85.3 Personal history of malignant neoplasm of breast (principal)
CPT/HCPCS: 77066

== ENCOUNTER → 2021-05-29 09:20 | Outpatient (BNVA) | payer MEDICARE, OTHER, SELFPAY | PROVIDERS: PCP Physician Assistant Medical; Visit Provider Internal Medicine Medical Oncology | DX: C50.812 Malignant neoplasm of overlapping sites of left female breast (principal); E11.649 Type 2 diabetes mellitus with hypoglycemia without coma; Z79.4 Long term (current) use of insulin | CPT/HCPCS: 80053; 83036; 85025 ==

== ENCOUNTER 2021-06-02 08:01 | Outpatient (CLI) | payer MEDICARE, OTHER, SELFPAY ==
--- NOTE | 2021-06-02 16:51 | ONC FU_ITS ---
Dr. Gonzalez Patient Follow-Up Note Patient: Edie Dupont Unit #: [id number]: 1955 Dicatated By: Justo Gonzalez M.D.Date of Visit:Jun 02, 2021 Onc Med Follow-up/Prog Note Chief Complaint: Breast cancer/lung cancer. History of Present Illness: This is a 65 year-old woman with grade 3 invasive lobular carcinoma of the left breast, stage IV (T2, N0, M1), ER/HI positive and HER-2/olivier negative. She was diagnosed with cancer of the left breast in 2014. Ultrasound guided needle biopsy at the 3 o'clock position of the left breast on 04/08/2015 showed grade 2 invasive ductal carcinoma, ER positive at 98% and HI positive at 100%. The Ki-67 was unfavorable at 31.34%. It was negative for overexpression of HER-2/olivier, 1+ by IHC. On 06/17/2015 she underwent left breast lumpectomy with axillary lymph node sampling, including sentinel lymph node biopsy. Pathology showed grade 3 invasive pleomorphic lobular carcinoma measuring 3.8 cm in maximum diameter. There was no involvement in 1 sentinel lymph node and no involvement in an additional 2 axillary lymph nodes. Her disease was pathologic stage IIA (T2, N0, M0). She had been receiving medical oncology care with Dr. Jenae Lane, and she had been on adjuvant hormonal therapy with letrozole 2.5 mg daily. During evaluation for the breast cancer, she was found to have a 1.7 cm right lower lobe lung nodule, confirmed to be adenocarcinoma by needle biopsy on 07/31/2015. This was presumed to be a second primary nonsmall cell carcinoma, stage IA (T1a, N0, M0). She was treated with SBRT, completed on 11/03/2017 to a total dose of 5000 cGy. I had seen her initially on 11/09/2017. At that time she reported increasing pain in the lower back and lower buttock area radiating down the back of both legs. The pain was relieved with rest. A recent MRI of the lumbar spine from 10/26/2017 reported a mild broad-based disc protrusion at L4-5 with superior migration in the central and right subarticular zones. There was mild spinal stenosis and right recess stenosis. Also noted were multiple focal bone lesions, the largest in the L1 and L4 vertebral bodies is a 14 mm. The appearance was felt to be consistent with blastic metastatic involvement. It appeared to be a new finding compared to previous MRI of the thoracic spine from July 2008. At least initially I had recommended that she just continue hormonal therapy with letrozole pending further evaluation. Subsequent to her initial visit I had reviewed the MRI studies with a radiologist, and there was an interval increase in size of the L1 and L4 vertebral bodies. She had further evaluation with bone scan on 02/09/2018. It showed a new focus of bony activity involving the sternum inferiorly but no change in subtle increased activity at T8 and no change in subtle increased activity at the distal end of the right second or third rib. Review of the chest CT from 05/05/2016 showed a blastic lesion in the sternal body, a blastic lesion of the T8 vertebral body, and blastic lesion involving the distal end of the right second rib. There was no significant lumbar spine activity to correlate with the likely blastic metastatic lesions noted in the lumbar spine MRI at L1 and L4. There was arthritic type activity in both acromioclavicular joints, the left sternoclavicular joint, both knees, and the midtarsal regions of both feet. There was no abnormality on left knee radiograph to correlate with new increased uptake in the left distal femur or patella. She was seen for a followup visit on 02/15/2018. The findings on the imaging studies appeared to be consistent with slowly progressive metastatic bone involvement. As she was not symptomatic with it, she opted to just continue hormonal therapy with letrozole 2.[address] scans of chest, abdomen, and pelvis on 11/14/2018 showed a focal irregular nodular subpleural opacity within the posterior aspect of the right lower lobe measuring 1.7 x 2.4 cm. The findings were felt to likely reflect post therapeutic change and appeared similar to prior studies. There was, however, increase in the degree of extensive bony metastatic disease. There were no other areas of metastatic involvement noted. I had seen her for a scheduled visit on 11/15/2018. With CT evidence of further progression of her bony metastatic disease, I had talked her about the possibility of transitioning her treatment to fulvestrant in combination with a CDK 4/6 inhibitor. Initially she was reluctant to change treatment, but eventually she did agree to begin a trial of therapy with fulvestrant in combination with abemacliclib. She then returned for a medication education visit, and after reviewing the possible side effects, she opted to defer treatment. She then had radiation oncology consultation with Dr. Mara Pearson in [place], and she was given palliative radiation to the lumbar spine. She completed treatment on 03/17/2019 to a total dose of 3000 cGy. On 03/29/2019 she began systemic therapy with fulvestrant in combination with abemacliclib. At day 15 of her first cycle of fulvestrant/abemacliclib her treatment was put on hold due to a significant increase in her liver enzymes, which included an SGOT of 784/45 and SGPT 420/45, both of which had been normal at baseline. The alkaline phosphatase had increased to 528, though it had previously been elevated, presumably due to the metastatic bone involvement. At the time she was having fatigue, anorexia, and back pain. The symptoms improved after stopping treatment, and her liver enzymes also improved. As of her 04/19/2019 she continued her treatment with fulvestrant, but without the CDK 4/6 inhibitor. She was able to tolerate the fulvestrant with no adverse effects. As of her follow-up visit in December 2019, she also began monthly injections of denosumab for the metastatic bone involvement. Her other medical illnesses include hypertension, hyperlipidemia, coronary artery disease, asthma, GERD, JONES, peripheral neuropathy, and degenerative arthritis. She has anxiety/depression. She is a nonsmoker. 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 There was no evidence for pathologic compression fracture in the spinal canal appeared grossly patent. Her lumbar spine MRI also showed multiple sclerotic osseous lesions consistent with osteoblastic metastases. There was no pathologic compression fracture and no enhancing epidural soft tissue disease. There were degenerative changes with inflammatory enhancement associated with prominent facet arthropathy at L4-5. There was moderate to severe discogenic central canal stenosis at that level and there was mild to moderate bilateral neural foraminal narrowing at L4-5 and L5-S1. As of her follow-up visit on 10/08/2020 she appeared stable clinically. I opted to continue her same treatment, but I did request an next generation sequencing study from her biopsy in 2014. It did confirm that her tumor was ER/HI positive and HER-2/olivier negative. It also was a ER positive. It showed no actionable mutations and the tumor was noted to be MSI stable with low mutational burden and with negative PD-L1 expression. With those findings she continued her hormonal therapy with fulvestrant together with monthly denosumab injections for the metastatic bone involvement. She is seen for a follow-up visit. She has not been feeling is good generally. She says she hurts all the time, mainly in her legs. Her energy is not as good, though she has continued most of her activities. ECOG score is 1. She has seen a neurosurgeon in regard to the spinal canal stenosis, and thus far she has opted to continue to manage it conservatively. She has pretty good appetite. She continues to have rapid fluctuations in her blood sugars. She has not had fever. She is still having pretty bad hot flashes and sweating. She has not had sore mouth or throat. She has some shortness of breath with activity, but her breathing is not bad. She has cough off and on. She does not complain of chest pain. She has not been having nausea. She has been having more acid reflux. Bowel and bladder function have been okay. She also has some joint pain, mainly in her hands. She reports having neck pain, but she thinks that is just from being tense. She does not complain of headache. She says her balance is bad. She has numbness in her hands and feet. She is having some depression. Medications: Aspirin 1 Tablet (of 81 mg) Tablet, enteric coated Oral daily, Effexor XR 1 Tablet (of 150 mg) Capsule SR 24 HR Oral daily, Famotidine 1 (20 mg) Tablet Oral b.i.d., Furosemide 1 Tablet (of 60 mg) Oral every am, Gabapentin 1 Tablet (of 900 mg) Oral b.i.d., Klor-Con 10 1 Tablet (of 10 meq) Tablet, controlled release Oral daily, Lansoprazole 1 drop(s) Liquid Oral daily, Levothyroxine Sodium 1 Tablet (of 75 mcg) Oral daily, Lisinopril 1 Tablet (of 5 mg) Oral daily, Metoprolol Tartrate 1 Tablet (of 100 mg) Oral b.i.d., NovoLIN N (100 Units/mL) Subcutaneous Take as Directed Allergies: Lyrica, Penicillins, Proventil HFA, and Sulfa Antibiotics. Vital Signs: Performed on Jun 02, 2021 08:41 Height - 61.00 in Weight - 174.0 lbs (HIGH) BSA - 1.78 sq.m BMI - 32.88 (HIGH) Temperature - 97.6 F (LOW) Pulse - 79 /min Respiration - 16 /min BP - 155/71 mm(hg) (HIGH) O2 Sat - 95 % (LOW) Pain - 4 Fatigue - 1 Physical Examination: Constitutional - She looks pretty good generally, Eyes - Sclerae nonicteric. Conjunctivae clear, ENMT - No lesions noted in the oral cavity, Hematologic/Lymphatic - No cervical, clavicular, or axillary adenopathy, Respiratory - Lungs are clear with good air movement bilaterally, Cardiovascular - Heart rhythm is regular. There is a II/ systolic murmur. There is no gallop or rub noted, Abdomen - Soft. Liver and spleen are not enlarged. There is no abdominal mass or ascites noted and there is no inguinal adenopathy, Extremities - No edema, Integumentary - There is a small skin lesion on the anterior aspect of the helix of the left ear, Neurologic - No focal neurologic deficits noted. Lab/Imaging: CBC shows hemoglobin 13.8 g, white blood cell count 7300, and platelet count 227,000. Comprehensive metabolic profile shows normal renal function with BUN 18 and creatinine 0.8 mg/dL. The elevated alkaline phosphatase is mildly at 176/105 IU/L and SGPT is slightly elevated at 35/33 U/L. Her hemoglobin A1c is elevated at 11.3%. Problem List: 1. Grade 3 lobular carcinoma of the left breast, ER/HI positive and HER-2/olivier negative. Her disease was stage IIA at initial diagnosis in July 2014. She had been on hormonal therapy with letrozole following lumpectomy and axillary lymph node sampling. 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 2. She underwent palliative radiation to the lumbar spine, completed on 03/17/2019 to a total dose of 3000 cGy. 3. On 03/29/2019 she began a trial of second line systemic therapy with fulvestrant in combination with abemacliclib. Her treatment was put on hold at day 15 due to a significant increase in her liver enzymes. She subsequently was able to restart fulvestrant monotherapy, which she tolerated well. 4. In October 2015 she underwent [employer] radiosurgery for adenocarcinoma involving the lower lobe of the right lung, stage IA (T1a, N0, M0). 6. Hypertension. 7. Dyslipidemia. 8. Type I diabetes. 9. Coronary artery disease with previous angioplasty/stent placement. 10. Asthma. 11. GERD. 12. She has anxiety/depression. Problems Addressed with this Encounter and Plan: 1. 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 She completed palliative radiation to the lumbar spine on 03/17/2019. On 03/29/2019 she began a trial of second line systemic therapy with fulvestrant in combination with abemacliclib. Her treatment was put on hold at day 15 due to a significant increase in her liver enzymes. She subsequently was able to restart fulvestrant monotherapy, which she has tolerated well. During follow-up she has not complained of any significant bone pain, but she has been having occasional episodes of numbness/tingling in both legs. Her repeat MRI of the thoracic and lumbar spine on 08/09/2020 showed extensive osteoblastic metastatic disease, but no evidence of associated epidural mass/cord compression. There was moderate to severe central canal stenosis associated with degenerative disc disease at L4-5. 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 Since her visit in December, though, she does appear to be showing some gradual decline in performance status. For now she will continue third line hormonal therapy with fulvestrant 500 mg by intramuscular injection monthly, but she will be scheduled now for restaging evaluation with CT scans of the chest, abdomen, and pelvis and bone scan. She will have further evaluation as indicated. I will tentatively plan a follow-up visit in 3 months. 2. Mestatic bone involvement. She will continue treatment for bone health with denosumab 120 mg by subcutaneous injection monthly. 3. She has a small skin lesion in the helix of the left ear. It appears a little suspicious for skin cancer, and I will have her see Dr. Correia for excision. Signed By: Justo Gonzalez M.D. <<Signature on File>>
== END 2021-06-02 08:02 | disposition home or self-care (01) ==
LOC: ONCMED 08:03
PROVIDERS: Visit Provider Internal Medicine Medical Oncology
DX: C50.812 Malignant neoplasm of overlapping sites of left female breast (principal); C79.51 Secondary malignant neoplasm of bone; I10 Essential (primary) hypertension; E78.5 Hyperlipidemia, unspecified; I25.10 Atherosclerotic heart disease of native coronary artery without angina pectoris; K21.9 Gastro-esophageal reflux disease without esophagitis; F41.9 Anxiety disorder, unspecified; F32.A Depression, unspecified; J45.909 Unspecified asthma, uncomplicated; G62.9 Polyneuropathy, unspecified; Z79.82 Long term (current) use of aspirin; Z79.899 Other long term (current) drug therapy
CPT/HCPCS: 99214

== ENCOUNTER → 2021-06-04 09:48 | Outpatient (BNVA) | payer MEDICARE, OTHER, SELFPAY | PROVIDERS: Visit Provider Internal Medicine | DX: E11.649 Type 2 diabetes mellitus with hypoglycemia without coma (principal); Z79.4 Long term (current) use of insulin; Z79.84 Long term (current) use of oral hypoglycemic drugs | CPT/HCPCS: 99214 ==

== ENCOUNTER 2021-06-05 08:18 | Outpatient (CLI) | payer MEDICARE, OTHER, SELFPAY ==
--- NOTE | 2021-06-05 08:24 | NM_ITS ---
WS: [id number] NUCLEAR MEDICINE WHOLE BODY BONE SCAN HISTORY: BREAST CANCER/BONE METS COMPARISON: 02/09/2018 TECHNIQUE: The patient was injected with 23.1 mCi of Technetium 99m HDP and serial whole-body scintig gorge have been performed with anterior and posterior images. Again noted is the focal area of increased uptake extending obliquely through the inferior sternum wh ich was previously described. No progression. The activity has decreased in intensity. Previously joy cribed abnormal uptake at T8 is no longer evident. Additional stable LEFT sternoclavicular joint arth ritis. Abnormal uptake within the RIGHT second anterior rib is not appreciable today. Mild increased uptake at the knees bilaterally is probably arthritic. The focal area of abnormal upta ke in the distal LEFT femoral diaphysis is no longer present. Arthritic changes in the mid feet bilat erally. Soft tissue uptake is normal. Normal renal activity. Bilateral AC joint and glenohumeral join t disease. NM/NM bone scan whole body* [id number] IMPRESSION: 1. Previously described metastatic lesion is again identified and stable since 2018 within the inferior sternum. Favor this is treated metastatic bone diseas e. 2. Abnormal uptake within the T8 vertebral body, RIGHT second rib and the dist al LEFT femoral diaphysis are no longer identified. 3. No new bone lesions are identified.
--- NOTE | 2021-06-05 08:43 | CT_ITS ---
WS: [id number] CT CHEST, ABDOMEN AND PELVIS WITH CONTRAST HISTORY: BREAST CANCER/BONE METS TECHNIQUE: Contiguous 5 mm axial imaging performed through the chest, abdomen and pelvis with IV cont rast, oral contrast has been provided. Coronal and sagittal reformats chest. Coronal and sagittal ref ormats through the abdomen and pelvis. All CT scans at [facility] use at least one of these d ose optimization techniques: automated exposure control; mA and/or kV adjustment per patient size (in cludes targeted exams where dose is matched to clinical indication); or iterative reconstruction. CONTRAST: Omnipaque 300; 95 mL IV. DLP: 1807.82 mGy.cm COMPARISON: 11/14/[address]: Again noted is the wedge-shaped area of increased soft tissue density with a radial dense m etallic nodules which may be posttreatment. This soft tissue nodule extends into the intercostal musc les but is very similar to the prior study of 11/14/2018. Probably post treatment scarring. History of gamma knife to this lesion. There is an additional pleural-based nodule in the RIGHT upper lobe whic h is stable. No pericardial effusion or pleural effusion. Heart size is normal. Atherosclerotic disea se within the thoracic aorta and [place] coronary arteries. No mediastinal or hilar adenopathy. No hia anup hernia. Postsurgical clips are noted within the LEFT breast. No increasing soft tissue nodule yazan ntified. Abdomen CT: Mildly nodular surface of the liver. No metastatic lesion. Normal portal vein. Normally d istended gallbladder with cholelithiasis. Normal spleen. Severe atrophy of the pancreas. No adrenal m ass. Kidneys are normal size with no obstruction. Proximal calcifications are noted within the LEFT k idney. There is marked atherosclerosis of the abdominal aorta with narrowing of the lumen. Heavy calc ification in the splenic artery. Mesenteric artery calcifications are extensive. No ascites or adenop athy. Mild fecal retention. No GI tract obstruction or significant mucosal thickening. Appendix is normal. No adenopathy. Pelvic CT: Atrophic uterus and ovaries as expected. No free fluid or adenopathy within the pelvis. Si nce the vascular calcifications are reidentified. Patient has extensive osteoblastic metastatic sites throughout the spine, ribs, similar and humeri. The osteoblastic sites within the thoracic spine have significantly increased. These sites were not p ositive on the bone scan imaging performed on the same day. Extensive osteoblastic changes within the sternum have progressed also. Osteoblastic changes within the proximal femurs and pelvis is also inc reased since 11/14/2018. CT/CT chest abd pel w con* IMPRESSION: 1. There has been a significant increase in the osteoblastic metastatic diseas e since 11/14/2018 CT. There was not a significant increase in the metastatic di sease seen on the bone scan performed on 06/05/2021. These may be treated metast atic sites since 11/14/2018. 2. Triangular area of fibrosis in the RIGHT lower lobe is stable since 11/15/19 19. Consistent with a treated neoplastic lesion. 3. No metastatic lymph nodes within the chest, abdomen or pelvis. 4. Severe atherosclerosis of aorta and mesenteric arteries. 5. Cholelithiasis without acute cholecystitis. 6. No adrenal mass.
[2021-06-05] MEDS: iohexol 300 mg/mL 100 mL Btl IV (10:30)
[2021-06-05] MEDS: iohexol 300 mg/mL 50 mL Btl IV (10:31)
== END 2021-06-05 08:19 | disposition home or self-care (01) ==
LOC: NM 08:20
PROVIDERS: PCP Registered Nurse; Visit Provider Internal Medicine Medical Oncology
DX: C50.812 Malignant neoplasm of overlapping sites of left female breast (principal); K80.20 Calculus of gallbladder without cholecystitis without obstruction; I70.0 Atherosclerosis of aorta; J84.10 Pulmonary fibrosis, unspecified
CPT/HCPCS: 71260; 74177; 78306; A9561

== ENCOUNTER 2021-07-03 10:00 | Outpatient (CLI) | payer MEDICARE, OTHER, SELFPAY ==
--- NOTE | 2021-07-03 17:37 | ONC FU_ITS ---
Dr. Gonzalez Patient Follow-Up Note Patient: Edie Dupont Unit #: [id number]: [id number] Dicatated By: Justo Gonzalez M.D.Date of Visit:Jul 03, 2021 Onc Med Follow-up/Prog Note Chief Complaint: Breast cancer/lung cancer. History of Present Illness: This is a 66 year-old woman with grade 3 invasive lobular carcinoma of the left breast, stage IV (T2, N0, M1), ER/NC positive and HER-2/olivier negative. She was diagnosed with cancer of the left breast in 2014. Ultrasound guided needle biopsy at the 3 o'clock position of the left breast on 04/08/2015 showed grade 2 invasive ductal carcinoma, ER positive at 98% and NC positive at 100%. The Ki-67 was unfavorable at 31.34%. It was negative for overexpression of HER-2/olivier, 1+ by IHC. On 06/17/2015 she underwent left breast lumpectomy with axillary lymph node sampling, including sentinel lymph node biopsy. Pathology showed grade 3 invasive pleomorphic lobular carcinoma measuring 3.8 cm in maximum diameter. There was no involvement in 1 sentinel lymph node and no involvement in an additional 2 axillary lymph nodes. Her disease was pathologic stage T2, N0. She had been receiving medical oncology care with Dr. Jenae Lane, and she had been on adjuvant hormonal therapy with letrozole 2.5 mg daily. During evaluation for the breast cancer, she was found to have a 1.7 cm right lower lobe lung nodule, confirmed to be adenocarcinoma by needle biopsy on 07/31/2015. This was presumed to be a second primary nonsmall cell carcinoma, stage IA (T1a, N0, M0). She was treated with SBRT, completed on 11/03/2017 to a total dose of 5000 cGy. I had seen her initially on 11/09/2017. At that time she reported increasing pain in the lower back and lower buttock area radiating down the back of both legs. The pain was relieved with rest. A recent MRI of the lumbar spine from 10/26/2017 reported a mild broad-based disc protrusion at L4-5 with superior migration in the central and right subarticular zones. There was mild spinal stenosis and right recess stenosis. Also noted were multiple focal bone lesions, the largest in the L1 and L4 vertebral bodies is a 14 mm. The appearance was felt to be consistent with blastic metastatic involvement. It appeared to be a new finding compared to previous MRI of the thoracic spine from July 2008. At least initially I had recommended that she just continue hormonal therapy with letrozole pending further evaluation. Subsequent to her initial visit I had reviewed the MRI studies with a radiologist, and there was an interval increase in size of the L1 and L4 vertebral bodies. She had further evaluation with bone scan on 02/09/2018. It showed a new focus of bony activity involving the sternum inferiorly but no change in subtle increased activity at T8 and no change in subtle increased activity at the distal end of the right second or third rib. Review of the chest CT from 05/05/2016 showed a blastic lesion in the sternal body, a blastic lesion of the T8 vertebral body, and blastic lesion involving the distal end of the right second rib. There was no significant lumbar spine activity to correlate with the likely blastic metastatic lesions noted in the lumbar spine MRI at L1 and L4. There was arthritic type activity in both acromioclavicular joints, the left sternoclavicular joint, both knees, and the midtarsal regions of both feet. There was no abnormality on left knee radiograph to correlate with new increased uptake in the left distal femur or patella. She was seen for a followup visit on 02/15/2018. The findings on the imaging studies appeared to be consistent with slowly progressive metastatic bone involvement. As she was not symptomatic with it, she opted to just continue hormonal therapy with letrozole 2.[address] scans of chest, abdomen, and pelvis on 11/14/2018 showed a focal irregular nodular subpleural opacity within the posterior aspect of the right lower lobe measuring 1.7 x 2.4 cm. The findings were felt to likely reflect post therapeutic change and appeared similar to prior studies. There was, however, increase in the degree of extensive bony metastatic disease. There were no other areas of metastatic involvement noted. I had seen her for a scheduled visit on 11/15/2018. With CT evidence of further progression of her bony metastatic disease, I had talked her about the possibility of transitioning her treatment to fulvestrant in combination with a CDK 4/6 inhibitor. Initially she was reluctant to change treatment, but eventually she did agree to begin a trial of therapy with fulvestrant in combination with abemacliclib. She then returned for a medication education visit, and after reviewing the possible side effects, she opted to defer treatment. She then had radiation oncology consultation with Dr. Mara Pearson in [place], and she was given palliative radiation to the lumbar spine. She completed treatment on 03/17/2019 to a total dose of 3000 cGy. On 03/29/2019 she began systemic therapy with fulvestrant in combination with abemacliclib. At day 15 of her first cycle of fulvestrant/abemacliclib her treatment was put on hold due to a significant increase in her liver enzymes, which included an SGOT of 784/45 and SGPT 420/45, both of which had been normal at baseline. The alkaline phosphatase had increased to 528, though it had previously been elevated, presumably due to the metastatic bone involvement. At the time she was having fatigue, anorexia, and back pain. The symptoms improved after stopping treatment, and her liver enzymes also improved. As of her 04/19/2019 she continued her treatment with fulvestrant, but without the CDK 4/6 inhibitor. She was able to tolerate the fulvestrant with no adverse effects. As of her follow-up visit in December 2019, she also began monthly injections of denosumab for the metastatic bone involvement. Her other medical illnesses include hypertension, hyperlipidemia, coronary artery disease, asthma, GERD, JONES, peripheral neuropathy, and degenerative arthritis. She has anxiety/depression. She is a nonsmoker. 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 There was no evidence for pathologic compression fracture in the spinal canal appeared grossly patent. Her lumbar spine MRI also showed multiple sclerotic osseous lesions consistent with osteoblastic metastases. There was no pathologic compression fracture and no enhancing epidural soft tissue disease. There were degenerative changes with inflammatory enhancement associated with prominent facet arthropathy at L4-5. There was moderate to severe discogenic central canal stenosis at that level and there was mild to moderate bilateral neural foraminal narrowing at L4-5 and L5-S1. As of her follow-up visit on 10/08/2020 she appeared stable clinically. I opted to continue her same treatment, but I did request an next generation sequencing study from her biopsy in 2014. It did confirm that her tumor was ER/NC positive and HER-2/olivier negative. It also was androgen receptor positive. It showed no actionable mutations and the tumor was noted to be MSI stable with low mutational burden and with negative PD-L1 expression. With those findings she continued her hormonal therapy with fulvestrant together with monthly denosumab injections for the metastatic bone involvement. She was seen for scheduled visit on 06/02/2021. At that point she was having a little more pain, mainly in the lower extremities, and she also appeared to be showing some decline in performance status. Her restaging CT scans of the chest, abdomen, and pelvis on 06/05/2021 showed a significant increase in osteoblastic metastatic disease compared to the CT scan from October 2018. His included significant increase in the area of involvement in the thoracic spine, in the sternum, and the pelvis, and in the proximal femurs. Her bone scan, though, showed a focal area of increased uptake in the inferior sternum, which appeared similar to the prior study from January 2018. Previously described uptake in the T8 vertebral body, in the right second anterior rib, and in the distal left femoral diaphysis was not appreciated. There were no new bony lesions identified. Arthritis changes were noted in the AC joints, knees, and feet. She is seen today to discuss further management. The only significant pain she is having is in the right groin area, and that is associated with weightbearing/activity. At times it is severe enough that she can barely walk. She sometimes has pain radiating down her legs. She is not having any significant back pain, and she has no focal neurologic symptoms. Medications: Aspirin 1 Tablet (of 81 mg) Tablet, enteric coated Oral daily, Effexor XR 1 Tablet (of 150 mg) Capsule SR 24 HR Oral daily, Famotidine 1 (20 mg) Tablet Oral b.i.d., Furosemide 1 Tablet (of 60 mg) Oral every am, Gabapentin 1 Tablet (of 900 mg) Oral b.i.d., Klor-Con 10 1 Tablet (of 10 meq) Tablet, controlled release Oral daily, Lansoprazole 1 drop(s) Liquid Oral daily, Levothyroxine Sodium 1 Tablet (of 75 mcg) Oral daily, Lisinopril 1 Tablet (of 5 mg) Oral daily, Metoprolol Tartrate 1 Tablet (of 100 mg) Oral b.i.d., NovoLIN N (100 Units/mL) Subcutaneous Take as Directed Allergies: Lyrica, Penicillins, Proventil HFA, and Sulfa Antibiotics. Vital Signs: Performed on Jul 03, 2021 11:05 Height - 61.00 in Weight - 172.3 lbs (LOW) BSA - 1.77 sq.m BMI - 32.56 (HIGH) Temperature - 98.1 F (LOW) Pulse - 58 /min (LOW) Respiration - 18 /min BP - 130/77 mm(hg) O2 Sat - 96 % Pain - 3 Fatigue - 0 Problem List: 1. Grade 3 lobular carcinoma of the left breast, stage IV, ER/NC positive and HER-2/olivier negative. 2. In October 2015 she underwent Cyber[employer]ife radiosurgery for adenocarcinoma involving the lower lobe of the right lung, stage IA (T1a, N0, M0). 3. Hypertension. 4. Dyslipidemia. 5. Type I diabetes. 6. Coronary artery disease with previous angioplasty/stent placement. 7. Asthma. 8. GERD. 9. She has anxiety/depression. Problems Addressed with this Encounter and Plan: Patient with grade 3 lobular carcinoma of the left breast, ER/NC positive and HER-2/olivier negative, Her disease was stage IIA at initial diagnosis in July 2014. She had been on hormonal therapy with letrozole following lumpectomy and axillary lymph node sampling. 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 She completed palliative radiation to the lumbar spine on 03/17/2019. On 03/29/2019 she began a trial of second line systemic therapy with fulvestrant in combination with abemacliclib. Her treatment was put on hold at day 15 due to a significant increase in her liver enzymes. She subsequently was able to restart fulvestrant monotherapy, which she tolerated well. During follow-up she had not complained of any significant bone pain, but she had been having occasional episodes of numbness/tingling in both legs. Her repeat MRI of the thoracic and lumbar spine on 08/09/2020 showed extensive osteoblastic metastatic disease, but no evidence of associated epidural mass/cord compression. There was moderate to severe central canal stenosis associated with degenerative disc disease at L4-5. She continued hormonal therapy with fulvestrant. As of her follow-up visit in May 2021 she appeared to be showing some decline in performance status. Her restaging CT scans showed further progression of osteoblastic metastatic disease in the thoracic spine, sternum, pelvis, and proximal femurs. There was no obvious progression, though, by bone scan. It is still uncertain to what extent the metastatic disease may be symptomatic. She has now developed pain in the right groin area, which I suspect is associated with the right hip joint. She also is known to have lumbar spinal canal stenosis, which could be contributing factor. At this point, she will be scheduled for MRI of the lumbar spine, pelvis, and right hip. I will consider further evaluation depending on those results. Signed By: Justo Gonzalez M.D. <<Signature on File>>
== END 2021-07-03 10:01 | disposition home or self-care (01) ==
LOC: ONCMED 10:03
PROVIDERS: PCP Registered Nurse; Visit Provider Internal Medicine Medical Oncology
DX: C50.912 Malignant neoplasm of unspecified site of left female breast (principal); Z85.118 Personal history of other malignant neoplasm of bronchus and lung; I10 Essential (primary) hypertension; E78.5 Hyperlipidemia, unspecified; E10.9 Type 1 diabetes mellitus without complications; I25.10 Atherosclerotic heart disease of native coronary artery without angina pectoris; J45.909 Unspecified asthma, uncomplicated; K21.9 Gastro-esophageal reflux disease without esophagitis; F41.9 Anxiety disorder, unspecified; R10.30 Lower abdominal pain, unspecified; M48.061 Spinal stenosis, lumbar region without neurogenic claudication
CPT/HCPCS: 99214

== ENCOUNTER 2021-07-14 07:47 | Outpatient (CLI) | payer MEDICARE, OTHER, SELFPAY ==
--- NOTE | 2021-07-14 08:00 | MR_ITS ---
WS: [id number] INDICATION: Breast and lung cancer TECHNIQUE: MRI of the pelvis without and with gadolinium enhancement. Axial T1 and T2 coronal T1 STIR sagittal T2 coronal T2 and post gadolinium imaging was obtained with fat saturation technique. FINDINGS: Comparison prior CT June 05, 2021 and . PET/CT August 29, 2015. Bone scan [facility] 2020 Postgadolinium images are limited due to motion artifact. Most of the previously described osteoblast ic metastasis cannot demonstrate enhancement today. There are a few small areas of T2 hyperintensity with enhancement suspicious for active metastatic disease involving the right ilium, left superolater al femoral head/neck, and tiny punctate foci in the bilateral greater trochanters. Remainder of the lesions likely due to chronic kidney disease without significant enhancement. No oth er interval changes. MR/MR pelvis wo/w con [id number] IMPRESSION: 1. Most of the previously described osteoblastic metastasis do not demonstrate enhancement today likely due to prior treated disease. 2. There are a few small areas of T2 hyperintensity with enhancement suspiciou s for active metastatic disease involving the right ilium, left superolateral f emoral head/neck, and tiny punctate foci in the bilateral greater trochanters. Further staging could be performed with PET/CT.
[2021-07-14] MEDS: gadobenate dimeglumine 20 mL vial IV (10:03)
== END 2021-07-14 07:48 | disposition home or self-care (01) ==
PROVIDERS: PCP Registered Nurse; Visit Provider Internal Medicine Medical Oncology
DX: C50.812 Malignant neoplasm of overlapping sites of left female breast (principal); M25.551 Pain in right hip
CPT/HCPCS: 72197; A9577

== ENCOUNTER 2021-10-21 14:21 | Outpatient (CLI) | payer MEDICARE, OTHER, SELFPAY ==
[2021-10-21 15:28] LABS: Basophils # 0.1 10^3/uL (0.0-0.1); Basophils % 0.8 %; Eosinophils # 0.1 10^3/uL (0.0-0.8); Eosinophils % 2.2 %; Hematocrit 40.7 % (37.0-47.0); Hemoglobin 13.2 g/dL (11.5-15.3); Lymphocytes # 1.9 10^3/uL (0.8-4.8); Mean Corpuscular HGB Conc 32.4 g/dL (30.0-36.0); Mean Corpuscular Hemoglobin 28.6 pg (28.0-34.0); Mean Corpuscular Volume 88.3 fl (81-99); Mean Platelet Volume 11.5 fL (7.4-10.4); Monocytes # 0.3 10^3/uL (0.2-0.9); Monocytes % 5.5 %; Neutrophils # 3.54 10^3/uL (1.8-7.7); Nucleated Red Blood Cells % 0 %; Platelet Count 223 10^3/cmm (130-400); Red Blood Count 4.61 10^6/uL (4.1-5.3)
[2021-10-21 16:39] LABS: Alanine Aminotransferase 35 U/L (0-33); Albumin Level 3.9 g/dL (3.5-5.2); Alkaline Phosphatase 155 IU/L (35-105); Anion Gap 18.9 (5-19); Aspartate Amino Transferase 15 U/L (0-32); Blood Urea Nitrogen 15 mg/dL (8-23); CA 15-3 9.7 U/mL (0-25); Carbon Dioxide 25 mmol/L (22-29); Chloride 96 mmol/L (98-107); Globulin 2.8 g/dL (1.3-4.6); Glomerular Filtration Rate 71.3 mL/min (90-130); Glucose 377 mg/dL (65-115); Osmolality Calculated 296 mOsm/kg (285-295); Potassium 4.9 mmol/L (3.5-5.1); Sodium 135 mmol/L (136-145); Total Bilirubin 0.3 mg/dL (0.15-1.2); Total Protein 6.7 g/dL (6.6-8.7)
--- NOTE | 2021-10-22 07:45 | ONC FU_ITS ---
Dr. Gonzalez Patient Follow-Up Note Patient: Edie Dupont Unit #: [id number]: [id number] Dicatated By: Justo Gonzalez M.D.Date of Visit:Oct 21, 2021 Onc Med Follow-up/Prog Note Chief Complaint: Breast cancer/lung cancer. History of Present Illness: This is a 66 year-old woman with grade 3 invasive lobular carcinoma of the left breast, stage IV (T2, N0, M1), ER/KY positive and HER-2/olivier negative. She was diagnosed with cancer of the left breast in 2014. Ultrasound guided needle biopsy at the 3 o'clock position of the left breast on 04/08/2015 showed grade 2 invasive ductal carcinoma, ER positive at 98% and KY positive at 100%. The Ki-67 was unfavorable at 31.34%. It was negative for overexpression of HER-2/olivier, 1+ by IHC. On 06/17/2015 she underwent left breast lumpectomy with axillary lymph node sampling, including sentinel lymph node biopsy. Pathology showed grade 3 invasive pleomorphic lobular carcinoma measuring 3.8 cm in maximum diameter. There was no involvement in 1 sentinel lymph node and no involvement in an additional 2 axillary lymph nodes. Her disease was pathologic stage T2, N0. She had been receiving medical oncology care with Dr. Jenae Lane, and she had been on adjuvant hormonal therapy with letrozole 2.5 mg daily. During evaluation for the breast cancer, she was found to have a 1.7 cm right lower lobe lung nodule, confirmed to be adenocarcinoma by needle biopsy on 07/31/2015. This was presumed to be a second primary nonsmall cell carcinoma, stage IA (T1a, N0, M0). She was treated with SBRT, completed on 11/03/2017 to a total dose of 5000 cGy. I had seen her initially on 11/09/2017. At that time she reported increasing pain in the lower back and lower buttock area radiating down the back of both legs. The pain was relieved with rest. A recent MRI of the lumbar spine from 10/26/2017 reported a mild broad-based disc protrusion at L4-5 with superior migration in the central and right subarticular zones. There was mild spinal stenosis and right recess stenosis. Also noted were multiple focal bone lesions, the largest in the L1 and L4 vertebral bodies is a 14 mm. The appearance was felt to be consistent with blastic metastatic involvement. It appeared to be a new finding compared to previous MRI of the thoracic spine from July 2008. At least initially I had recommended that she just continue hormonal therapy with letrozole pending further evaluation. Subsequent to her initial visit I had reviewed the MRI studies with a radiologist, and there was an interval increase in size of the L1 and L4 vertebral bodies. She had further evaluation with bone scan on 02/09/2018. It showed a new focus of bony activity involving the sternum inferiorly but no change in subtle increased activity at T8 and no change in subtle increased activity at the distal end of the right second or third rib. Review of the chest CT from 05/05/2016 showed a blastic lesion in the sternal body, a blastic lesion of the T8 vertebral body, and blastic lesion involving the distal end of the right second rib. There was no significant lumbar spine activity to correlate with the likely blastic metastatic lesions noted in the lumbar spine MRI at L1 and L4. There was arthritic type activity in both acromioclavicular joints, the left sternoclavicular joint, both knees, and the midtarsal regions of both feet. There was no abnormality on left knee radiograph to correlate with new increased uptake in the left distal femur or patella. She was seen for a followup visit on 02/15/2018. The findings on the imaging studies appeared to be consistent with slowly progressive metastatic bone involvement. As she was not symptomatic with it, she opted to just continue hormonal therapy with letrozole 2.[address] scans of chest, abdomen, and pelvis on 11/14/2018 showed a focal irregular nodular subpleural opacity within the posterior aspect of the right lower lobe measuring 1.7 x 2.4 cm. The findings were felt to likely reflect post therapeutic change and appeared similar to prior studies. There was, however, increase in the degree of extensive bony metastatic disease. There were no other areas of metastatic involvement noted. I had seen her for a scheduled visit on 11/15/2018. With CT evidence of further progression of her bony metastatic disease, I had talked her about the possibility of transitioning her treatment to fulvestrant in combination with a CDK 4/6 inhibitor. Initially she was reluctant to change treatment, but eventually she did agree to begin a trial of therapy with fulvestrant in combination with abemacliclib. She then returned for a medication education visit, and after reviewing the possible side effects, she opted to defer treatment. She then had radiation oncology consultation with Dr. Mara Pearson in [place], and she was given palliative radiation to the lumbar spine. She completed treatment on 03/17/2019 to a total dose of 3000 cGy. On 03/29/2019 she began systemic therapy with fulvestrant in combination with abemacliclib. At day 15 of her first cycle of fulvestrant/abemacliclib her treatment was put on hold due to a significant increase in her liver enzymes, which included an SGOT of 784/45 and SGPT 420/45, both of which had been normal at baseline. The alkaline phosphatase had increased to 528, though it had previously been elevated, presumably due to the metastatic bone involvement. At the time she was having fatigue, anorexia, and back pain. The symptoms improved after stopping treatment, and her liver enzymes also improved. As of her 04/19/2019 she continued her treatment with fulvestrant, but without the CDK 4/6 inhibitor. She was able to tolerate the fulvestrant with no adverse effects. As of her follow-up visit in December 2019, she also began monthly injections of denosumab for the metastatic bone involvement. Her other medical illnesses include hypertension, hyperlipidemia, coronary artery disease, asthma, GERD, JONES, peripheral neuropathy, and degenerative arthritis. She has anxiety/depression. She is a nonsmoker. 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 There was no evidence for pathologic compression fracture in the spinal canal appeared grossly patent. Her lumbar spine MRI also showed multiple sclerotic osseous lesions consistent with osteoblastic metastases. There was no pathologic compression fracture and no enhancing epidural soft tissue disease. There were degenerative changes with inflammatory enhancement associated with prominent facet arthropathy at L4-5. There was moderate to severe discogenic central canal stenosis at that level and there was mild to moderate bilateral neural foraminal narrowing at L4-5 and L5-S1. As of her follow-up visit on 10/08/2020 she appeared stable clinically. I opted to continue her same treatment, but I did request an next generation sequencing study from her biopsy in 2014. It did confirm that her tumor was ER/KY positive and HER-2/olivier negative. It also was androgen receptor positive. It showed no actionable mutations and the tumor was noted to be MSI stable with low mutational burden and with negative PD-L1 expression. With those findings she continued her hormonal therapy with fulvestrant together with monthly denosumab injections for the metastatic bone involvement. She was seen for scheduled visit on 06/02/2021. At that point she was having a little more pain, mainly in the lower extremities, and she also appeared to be showing some decline in performance status. Her restaging CT scans of the chest, abdomen, and pelvis on 06/05/2021 showed a significant increase in osteoblastic metastatic disease compared to the CT scan from October 2018. His included significant increase in the area of involvement in the thoracic spine, in the sternum, and the pelvis, and in the proximal femurs. Her bone scan, though, showed a focal area of increased uptake in the inferior sternum, which appeared similar to the prior study from January 2018. Previously described uptake in the T8 vertebral body, in the right second anterior rib, and in the distal left femoral diaphysis was not appreciated. There were no new bony lesions identified. Arthritis changes were noted in the AC joints, knees, and feet. On MRI of the pelvis on 07/14/2021 most of the previously described osteoblastic metastatic lesions did not demonstrate enhancement, felt to be consistent with treated disease. A few small areas of T2 hyperintensity with enhancement were noted in the right ilium, left superior lateral femoral head/neck, and in the greater trochanter bilaterally, suspicious for active metastatic disease. With those findings she was recommended to continue treatment with fulvestrant. On 08/12/2021 she was admitted to [facility] in [place] with fairly acute onset of weakness/numbness in the right leg. She also had pain in the right side of the back at the initial onset, and she had loss of bowel and bladder function. The pain resolved within 24 hours. During the hospitalization she had neurology and neurosurgery consultations and her evaluation included MRI of the brain and spine. She ultimately was felt to have neuropathy due to her uncontrolled diabetes. She then spent 2 weeks in rehab prior to returning home. Thus far she has had no further treatment for the breast cancer. She is seen for a follow-up visit. She has continued physical therapy at home, and she has been showing gradual improvement in her neurologic deficit, to the point that she is now able to ambulate with a cane. She continues to have numbness in the right leg and foot. She also describes having loss of motor control of the right leg more so than actual muscle weakness. She still has limited activity. Her ECOG score is 2. Her appetite has been okay. She does not have fever, night sweats, or hot flashes. She has not had sore mouth or throat, and she does not have difficulty swallowing. She does not complain of cough, and she has not been having shortness of breath or chest pain. She currently has no GI complaints. She has recovered bowel function. She still has some urgency with urination, but with just occasional leakage. She is not having any significant joint or bone pain. She does not complain of headache or dizziness. She still has numbness on the right side from her waist down to and including her right foot. Medications: Aspirin 1 Tablet (of 81 mg) Tablet, enteric coated Oral daily, Atorvastatin Calcium 1 Tablet (of 80 mg) Oral daily, Cyclobenzaprine HCl 3 Tablet (of 10 mg) Oral daily, Effexor XR 1 Tablet (of 150 mg) Capsule SR 24 HR Oral daily, Famotidine 1 (20 mg) Tablet Oral b.i.d., Furosemide 1 Tablet (of 60 mg) Oral every am, Gabapentin 1 Tablet (of 900 mg) Oral b.i.d., Isosorbide Mononitrate ER 1 Tablet (of 30 mg) Tablet SR 24 HR Oral b.i.d., Klor-Con 10 1 Tablet (of 10 meq) Tablet, controlled release Oral daily, Lansoprazole 1 drop(s) Liquid Oral daily, Levothyroxine Sodium 1 Tablet (of 75 mcg) Oral daily, Lisinopril 1 Tablet (of 5 mg) Oral daily, metFORMIN HCl 1 Tablet (of 1000 mg) Oral b.i.d., Metoprolol Tartrate 1 Tablet (of 50 mg) Oral b.i.d., NovoLIN 70/30 ((70-30) 100 Units/mL) Subcutaneous Take as Directed Allergies: Lyrica, Penicillins, Proventil HFA, and Sulfa Antibiotics. Vital Signs: Performed on Oct 21, 2021 15:18 Height - 61.00 in Weight - 179.2 lbs (HIGH) BSA - 1.80 sq.m BMI - 33.86 (HIGH) Temperature - 97.3 F (LOW) Pulse - 120 /min (HIGH) Respiration - 18 /min BP - 147/72 mm(hg) (HIGH) O2 Sat - 96 % Pain - 0 Fatigue - 3 Physical Examination: Constitutional - She looks pretty good generally, Eyes - Sclerae nonicteric. Conjunctivae clear, ENMT - No lesions noted in the oral cavity, Hematologic/Lymphatic - No cervical, clavicular, or axillary adenopathy, Respiratory - Lungs are clear with good air movement bilaterally, Cardiovascular - Heart rhythm is regular. There is a II/ systolic murmur. There is no gallop or rub noted, Abdomen - Soft. Liver and spleen are not enlarged. There is no abdominal mass or ascites noted and there is no inguinal adenopathy, Extremities - No edema, Neurologic - There is sensory loss in the right leg and there is lack of motor control, but the muscle strength appears intact. Lab/Imaging: Test performed on Oct 21, 2021 15:00 Sodium 135 mmol/L Potassium 4.9 mmol/L Chloride 96 mmol/L CO2 25 mmol/L Anion Gap 18.9 BUN 15 mg/dL Creatinine 0.8 mg/dL Cr Clearance (Est) 86.3700 mL/min eGFR 71.3 mL/min Glucose 377 mg/dL Osmolality - Calculated 296 mOsm/kg Calcium 9.0 mg/dL Protein, Total 6.7 g/dL Albumin 3.9 g/dL Globulin 2.8 g/dL Bilirubin, Total 0.3 mg/dL ALT (SGPT) 35 U/L AST (SGOT) 15 U/L Alkaline Phosphatase 155 IU/L WBC 6.0 10 3/uL RBC 4.61 10 6/uL HGB 13.2 g/dL HCT 40.7 % MCV 88.3 fl MCH 28.6 pg MCHC 32.4 g/dL RDW 12.0 % Platelet Count 223 10 3/cmm MPV 11.5 fL Neutrophils 3.54 10 3/uL Lymphocytes 1.9 10 3/uL Monocytes 0.3 10 3/uL Eosinophils 0.1 10 3/uL Basophils 0.1 10 3/uL Neutrophil % 59.0 % Lymphocyte % 32.0 % Monocyte % 5.5 % Eosinophil % 2.2 % Basophils % 0.8 % NRBC % 0 % CA 15-3 9.7 U/mL Problem List: 1. Grade 3 lobular carcinoma of the left breast, stage IV, ER/KY positive and HER-2/olivier negative. 2. In October 2015 she underwent [employer] radiosurgery for adenocarcinoma involving the lower lobe of the right lung, stage IA (T1a, N0, M0). 3. Hypertension. 4. Dyslipidemia. 5. Type I diabetes. 6. Coronary artery disease with previous angioplasty/stent placement. 7. Asthma. 8. GERD. 9. She has anxiety/depression. Problems Addressed with this Encounter and Plan: 1. Patient with grade 3 lobular carcinoma of the left breast, ER/KY positive and HER-2/olivier negative, Her disease was stage IIA at initial diagnosis in July 2014. She had been on hormonal therapy with letrozole following lumpectomy and axillary lymph node sampling. 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 She completed palliative radiation to the lumbar spine on 03/17/2019. On 03/29/2019 she began a trial of second line systemic therapy with fulvestrant in combination with abemacliclib. Her treatment was put on hold at day 15 due to a significant increase in her liver enzymes. She subsequently was able to restart fulvestrant monotherapy, which she tolerated well. During follow-up she had not complained of any significant bone pain, but she had been having occasional episodes of numbness/tingling in both legs. Her repeat MRI of the thoracic and lumbar spine on 08/09/2020 showed extensive osteoblastic metastatic disease, but no evidence of associated epidural mass/cord compression. There was moderate to severe central canal stenosis associated with degenerative disc disease at L4-5. As of her follow-up visit in May 2021 she appeared to be showing some decline in performance status. Her restaging CT scans showed further progression of osteoblastic metastatic disease in the thoracic spine, sternum, pelvis, and proximal femurs. There was no obvious progression, though, by bone scan. On MRI of the pelvis only a few scattered lesions showed enhancement. The majority did not enhance and were felt to be consistent with treated disease. Overall it was very difficult to determine to what extent the bone involvement was active and/or symptomatic. On 08/12/2021 she was admitted to [facility] in [place] with acute onset of numbness in the right leg and loss of motor control. She also had pain in the right mid to lower back and she had loss of bowel and bladder function. This was felt to be due to diabetic neuropathy, though it is a complicated clinical picture she also has diffuse metastatic disease in the spine as well as degenerative disease of the spine with L4/5 spinal canal stenosis. In any case, she has been showing gradual improvement with conservative management. During this time she has not been on any treatment for the breast cancer. At this point I am going to consult with Dr. Benson, I am also going to obtain the [facility] MRI images for review. She will then have further evaluation as indicated, I also will address the issue of further treatment for her breast cancer. Signed By: Justo Gonzalez M.D. <<Signature on File>>
== END 2021-10-21 14:22 | disposition home or self-care (01) ==
PROVIDERS: PCP Registered Nurse; Visit Provider Internal Medicine Medical Oncology
DX: C50.912 Malignant neoplasm of unspecified site of left female breast (principal); Z17.0 Estrogen receptor positive status [ER+]; C79.51 Secondary malignant neoplasm of bone; Z92.3 Personal history of irradiation; M51.36 Other intervertebral disc degeneration, lumbar region; M48.00 Spinal stenosis, site unspecified
CPT/HCPCS: 36415; 80053; 85025; 86300; 99214

== ENCOUNTER 2021-10-31 12:24 | Inpatient (IN) | payer MEDICARE, OTHER, SELFPAY ==
[2021-10-31] VITALS (21 sets, daily range): BP systolic 93–171; BP diastolic 41–90; PULSE 81–94; RESP 12–34; TEMP 36.4–36.9; O2SAT 97–100
--- NOTE | 2021-10-31 12:31 | W.ED.FALL ---
HPI - Fall General: Chief Complaint: Fall Stated Complaint: FALL/ POSSIBLE BROKEN ANKLE Time Seen by Provider: 10/31/21 12:26 Source: patient and EMS Mode of arrival: EMS Limitations: no limitations History of Present Illness: Jean boyd was transported by EMS to the emergency department from her home. She states that she was engaging in her activities of daily living today and her right leg felt weak and she fell to the floor and she thinks she is injured her ankle. She states that she did hit her head on the door frame but did not suffer of loss of consciousness. She states that she has had some problems with her right leg for some time now. She states that she developed some weakness in that right leg previously and has been going to physical therapy to improve its function. She does admit to having diabetes but states she is not been taking her insulin recently. She states she has had some nausea and not felt like eating either. She states that others at her [employer] have been ill with similar and other subtle symptoms. She states she is immunized against COVID-19 and has not had any known exposure to COVID-19. She denies syncope related to this incident today. She states she had a fall a couple of days ago at [employer]. He denies chest pain shortness of breath palpitations etc. She does admit to having coronary artery disease and is had previous stents placed. She states she takes 81 mg of aspirin but no other antiplatelet or anticoagulant medications. She denies back pain neck pain or other extremity pain. EMS adds that upon arrival they did a Accu-Chek and it read high. Fall from: standing Fall witnessed: no Place fall occurred: home Loss of consciousness: None Symptoms prior to fall: none Context: tripped/slipped Location of injury - extremities: Right: ankle Associated symptoms-after fall: Reports no associated symptoms and difficulty walking; Denies abdominal pain, chest pain, headache(s) or neck pain Review of Systems Const: Denies: fever(s) or chills Eyes: Denies: change in vision ENMT: Denies: throat pain or odynophagia Card: Denies: chest pain, palpitations, irregular heart rhythm, syncope or dyspnea on exertion Resp: Denies: dyspnea, productive cough or non-productive cough GI: Reports: nausea; Denies: abdominal pain, vomiting or diarrhea : Denies: flank pain, difficulty voiding, dysuria or urinary frequency Musc: Reports: extremity pain; Denies: neck pain or back pain Skin/Breast: Denies: rash, pruritus or erythema Neuro: Reports: numbness in extremities, weakness in extremities and difficulty walking; Denies: headache(s), Slurred speech present, difficulty communicating thoughts or seizure-like activity Psych: Denies: anxiety or depression Endo: Denies: polyuria or polydipsia PFSH ED PFSH: Medical History Breast cancer Depression Diabetes GERD (gastroesophageal reflux disease) Glaucoma Herpes simplex Hypertension Hypothyroidism Lung cancer Neuropathy Surgical History H/O colonoscopy (07/04/20) yrs ago H/O esophagogastroduodenoscopy (07/04/20) H/O foot surgery H/O shoulder surgery History of lumpectomy of left breast History of tonsillectomy Family History Other CAD (coronary artery disease) Cancer Hypertension Denies family history of Anesthesia complication Bleeding disorder Social History Smoking and tobacco status: never smoked Alcohol intake: never Lives independently: Yes Marital status: Single Current occupational status: retired History of recent travel: No Physical Exam Narrative: EXAM NARRATIVE: She is noted to be alert. Makes good eye contact. Answers questions appropriately in a goal-directed fashion. Const: COMMON NORMALS: no acute distress, patient oriented x3 and alert GENERAL APPEARANCE: cooperative and comfortable HENMT: COMMON NORMALS: normocephalic, atraumatic, Normal nasal mucous membranes and turbinates present and moist oral mucous membranes HEAD & SCALP: normocephalic and atraumatic FACE & SINUS: normal facial exam; sinuses not nontender NOSE: Normal nasal mucous membranes and turbinates present Eye: COMMON NORMALS: Equal, round and reactive pupils present, EOMs intact bilaterally and conjunctivae normal CONJUNCTIVA: Yes conjunctivae normal PUPIL: Yes Equal, round and reactive pupils present Neck/C-Spine: COMMON NORMALS: full ROM, no JVD and No carotid bruits CERVICAL SPINE: Yes cervical ROM normal, No Cervical spine tenderness, No step off deformity and No Paracervical muscle tenderness Chest: COMMONS NORMALS: normal inspection of the chest Resp: COMMON NORMALS: normal respiratory effort, No use of accessory muscles and clear to auscultation bilaterally AUSCULTATION: clear to auscultation bilaterally Cardio: COMMON NORMALS: no JVD, regular rate, No murmurs present (Cardio) and Peripheral pulses 2+ throughout RATE: regular rate PERIPHERAL PULSES: Peripheral pulses 2+ throughout GI: COMMON NORMALS: Soft to palpation and non-tender PALPATION: Yes Soft to palpation : COMMON NORMALS: Yes no CVA tenderness BLADDER/KIDNEY EXAM: Yes no CVA tenderness Back/Pelvis: COMMON NORMALS: no CVA tenderness, thoracic and lumbar spine normal to inspection, no thoracic nor lumbar tenderness, thoraco-lumbar ROM normal and straight leg raise negative bilaterally PELVIS: Yes no pain with anterior-posterior compression and Yes no pain with lateral compression Extremity: RIGHT LOWER EXTREMITY: Yes foot & digits (She has a superficial abrasion over the lateral malleolus. ) Right ankle: Yes neurovascular exam OTHER: Extremity examination reveals no deformity any of her 4 extremities. She has normal range of motion to the right upper left upper and left lower extremities. Right lower extremity she has subjective discomfort when she attempts to range her right ankle joint. There is no tenderness over the knee or the hip. She has no obvious deformity the right ankle. No ecchymosis. No swelling. She does have abrasion over the lateral malleolus. Neuro: COMMON NORMALS: patient oriented x3, moves all extremities and no focal motor deficits SENSORIUM/ORIENTATION: Yes alert SPEECH: speech normal Course Reevaluation(s): Reevaluation #1: Accu-Chek here reads high without any value obtained due to inaccuracy of a glucometer at high levels. We will begin IV fluids and await additional labs. Current presentation suggest hyperosmolar state with hyperglycemia with pseudo hyponatremia and hyperkalemia concomitant with her presentation. We will continue with fluids and add insulin. Time: 12:55 Reevaluation #2: Blood sugars noted on chemistry. Reevaluation #3: Patient remains clinically stable. I informed her of findings and plan of care. She acknowledged our discussion. Time: 14:04 Consultations: Consultation #1: Discussed with Dr. Chowdhury the attending hospitalist. We discussed current findings and recommendations for additional testing and treatment and he will plan on admitting the patient. Time: 14:21 Vital Signs: Vital signs: Vital Signs Temperature 98.4 F 10/31/21 12:52 Pulse Rate 93 10/31/21 12:52 Respiratory Rate 23 H 10/31/21 12:52 Blood Pressure 171/58 10/31/21 12:52 Pulse Oximetry 100 10/31/21 12:52 MDM - Fall Medical Decision Making Patient with a known history of insulin requiring diabetes who has not been taking her insulin for the last approximately 4 to 5 days presents because of a fall and concern about an injured ankle. Evaluation today did not reveal any obvious fracture or other bony abnormalities of her ankle. Her CT of her head was unremarkable as well. However she has significant hyperglycemia with acidosis. She was started on IV fluids and IV insulin drip will be initiated. She has other electrolyte abnormalities consistent with her hyper glycemic hyperosmolar state. Medical Records I reviewed the patient's medical records. Lab Data I reviewed the patient's lab results. : 10/31/21 12:40 10/31/21 12:40 Radiology Impressions Ankle X-Ray 10/31/21 12:34 IMPRESSION: No acute osseous abnormality. Head CT 10/31/21 12:34 IMPRESSION: 1. No evidence of intracranial hemorrhage or mass effect. 2. Mild small vessel changes with moderate parenchymal volume loss. 3. RIGHT parietal scalp edema about the vertex. No underlying calvarial fractures. 4. No acute intracranial findings. Laboratory Results WBC 9.6 10^3/uL (4.0-10.0) 10/31/21 12:40 RBC 5.16 10^6/uL (4.1-5.3) 10/31/21 12:40 Hgb 15.1 g/dL (11.5-15.3) 10/31/21 12:40 Hct 47.0 % (37.0-47.0) 10/31/21 12:40 MCV 91.1 fl (81-99) 10/31/21 12:40 MCH 29.3 pg (28.0-34.0) 10/31/21 12:40 MCHC 32.1 g/dL (30.0-36.0) 10/31/21 12:40 RDW 12.4 % (12.1-15.1) 10/31/21 12:40 Plt Count 300 10^3/cmm (130-400) 10/31/21 12:40 MPV 11.2 fL (7.4-10.4) H 10/31/21 12:40 Neut % (Auto) 86.5 % 10/31/21 12:40 Lymph % (Auto) 9.1 % 10/31/21 12:40 [place] % (Auto) 3.3 % 10/31/21 12:40 Eos % (Auto) 0.0 % 10/31/21 12:40 Baso % (Auto) 0.7 % 10/31/21 12:40 Neut # (Auto) 8.29 10^3/uL (1.8-7.7) H 10/31/21 12:40 Lymph # (Auto) 0.9 10^3/uL (0.8-4.8) 10/31/21 12:40 [place] # (Auto) 0.3 10^3/uL (0.2-0.9) 10/31/21 12:40 Eos # (Auto) 0.0 10^3/uL (0.0-0.8) 10/31/21 12:40 Baso # (Auto) 0.1 10^3/uL (0.0-0.1) 10/31/21 12:40 Nucleated RBC % (auto) 0 % 10/31/21 12:40 Nucleated RBCs # 0.0 /100WBC 10/31/21 12:40 Sodium 126 mmol/L (136-145) L 10/31/21 12:40 Potassium 6.4 mmol/L (3.5-5.1) H 10/31/21 12:40 Chloride 89 mmol/L (98-107) L 10/31/21 12:40 Carbon Dioxide 9 mmol/L (22-29) L 10/31/21 12:40 Anion Gap 34.4 (5-19) H 10/31/21 12:40 BUN 23 mg/dL (8-23) 10/31/21 12:40 Creatinine 1.1 mg/dL (0.5-0.9) H 10/31/21 12:40 GFR Calculation 49.4 mL/min (90-130) L 10/31/21 12:40 Glucose 825 mg/dL (65-115) H* 10/31/21 12:40 POC Glucose > 600 mg/dL (70-110) H* 10/31/21 14:04 Calculated Osmolality 306 mOsm/kg (285-295) H 10/31/21 12:40 Calcium 10.0 mg/dL (8.5-10.5) 10/31/21 12:40 Imaging Data Other Imaging: I personally reviewed and interpreted this imaging study as follows: My impression: Right ankle does not show any evidence of acute fracture dislocation etc. at this time. EKG Data EKG 1: I personally reviewed and interpreted this EKG as follows: EKG interpretation time: 12:55 Interpretation: Review of EKG reveals normal sinus rhythm of 92 bpm. Normal FL interval. QRS duration is normal. QTc is normal. [place] is leftward consistent with anterior fascicular block. Also has poor R wave progression anterior precordial leads suggestive of anteroseptal UT of uncertain age. Discharge Plan Discharge Patient Disposition: Admitted As Inpatient Clinical Impression: Hyperosmolar hyperglycemic state (HHS), Diabetes, type 1.5, uncontrolled, managed as type 1, Mild sprain of right ankle Condition: Stable Coding Level of Care Code ED Skin Pass Operator for Chg Fwd Exam Comprehensive
--- NOTE | 2021-10-31 12:34 | ECG_ITS ---
[facility] Test Date: 2021-10-31 Pat Name: Edie Dupont Department: Room: Gender: Female Certified Nurse Practitioner: : [id number] Requested By: Saurabh Vidal Order Number: [id number] Lilo MD: Peace Pineda M.D. Measurements Intervals [place] Rate: 92 P: 79 RI: 172 QRS: -55 QRSD: 133 T: 99 QT: 397 QTc: 491 Interpretive Statements SINUS RHYTHM LEFT AXIS DEVIATION [QRS AXIS < -30] INTRAVENTRICULAR CONDUCTION DELAY [130+ ms QRS DURATION] ANTEROSEPTAL MYOCARDIAL INFARCTION , OF INDETERMINATE AGE [40+ ms Q WAVE IN V1-V4] No previous ECG available for comparison Electronically Signed On 10-31-2021 20:26:40 CDT by Peace Pineda M.D. [id number]
--- NOTE | 2021-10-31 12:34 | XRR_ITS ---
PROCEDURE INFORMATION: Exam: XR Right Ankle Exam date and time: 10/31/2021 12:42 PM Age: 66 years old Clinical indication: Injury or trauma; Fall; Blunt trauma; Injury details: Right leg felt weak and she fell to the floor and she thinks she is injured her ankle. ; Additional info: Fall injury TECHNIQUE: Imaging protocol: XR Right ankle. Views: 3 or more views. COMPARISON: No relevant prior studies available. FINDINGS: Bones/joints: No fracture. No dislocation. The ankle mortise is intact. There is a calcaneal plantar spur. Degenerative changes present in the midfoot. Soft tissues: No acute soft tissue abnormality. XR/XR ankle RT min 3V* [id number] IMPRESSION: No acute osseous abnormality.
--- NOTE | 2021-10-31 12:34 | CT_ITS ---
WS: [id number] CT HEAD TECHNIQUE: Noncontrast CT of the head obtained from the skullbase to the vertex. CLINICAL INFORMATION: fall and head injury COMPARISON: MRI August 13, 2021 DLP: 929.[address] scans at [facility] use at least one of these dose optimization techniques: automated e xposure control; mA and/or kV adjustment per patient size (includes targeted exams where dose is matc hed to clinical indication); or iterative reconstruction. FINDINGS: No evidence of intracranial hemorrhage or mass effect. Ventricular system and basal cisterns are fisher nt. Mild small vessel changes with moderate intracranial vascular calcification. Chronic lacunar infa rcts in the LEFT lateral basal ganglia. Paranasal sinuses and mastoid air cells are well aerated. Nor mal posterior nasopharynx. Soft tissue edema RIGHT parietal vertex. No underlying calvarial fractures . CT/CT head wo con* [id number] IMPRESSION: 1. No evidence of intracranial hemorrhage or mass effect. 2. Mild small vessel changes with moderate parenchymal volume loss. 3. RIGHT parietal scalp edema about the vertex. No underlying calvarial fractu res. 4. No acute intracranial findings.
[2021-10-31 12:49] LABS: Basophils # 0.1 10^3/uL (0.0-0.1); Basophils % 0.7 %; Hemoglobin 15.1 g/dL (11.5-15.3); Lymphocytes # 0.9 10^3/uL (0.8-4.8); Lymphocytes % 9.1 %; Mean Corpuscular HGB Conc 32.1 g/dL (30.0-36.0); Mean Corpuscular Hemoglobin 29.3 pg (28.0-34.0); Mean Corpuscular Volume 91.1 fl (81-99); Mean Platelet Volume 11.2 fL (7.4-10.4); Monocytes # 0.3 10^3/uL (0.2-0.9); Monocytes % 3.3 %; Neutrophils # 8.29 10^3/uL (1.8-7.7); Neutrophils % 86.5 %; Nucleated Red Blood Cells % 0 %; Platelet Count 300 10^3/cmm (130-400); Red Blood Count 5.16 10^6/uL (4.1-5.3); Red Cell Distribution Width 12.4 % (12.1-15.1); White Blood Count 9.6 10^3/uL (4.0-10.0)
[2021-10-31 12:54] LABS: Glucose Point of Care > 600 mg/dL (70-110)
[2021-10-31 12:54] LABS: Glucose Point of Care > 600 mg/dL (70-110)
[2021-10-31] MEDS: sodium chloride 0.9% 1,000 ML 999 ML IV ×2 (13:03→14:29)
[2021-10-31 13:08] LABS: Anion Gap 34.4 (5-19); Blood Urea Nitrogen 23 mg/dL (8-23); Chloride 89 mmol/L (98-107); Glomerular Filtration Rate 49.4 mL/min (90-130); Potassium 6.4 mmol/L (3.5-5.1); Sodium 126 mmol/L (136-145)
[2021-10-31 13:17] LABS: Osmolality Calculated 306 mOsm/kg (285-295)
[2021-10-31 13:21] LABS: Carbon Dioxide 9 mmol/L (22-29); Glucose 825 mg/dL (65-115)
--- NOTE | 2021-10-31 13:52 | PC.PHAR ---
pt states she takes care of her own medications-pt states she buys her insulin otc from [employer] pt states she uses the novolin 70/30-notes are made in the pharmacy comments
[2021-10-31 14:07] LABS: Glucose Point of Care > 600 mg/dL (70-110)
[2021-10-31 14:38] LABS: Add Urine Microscopic? NO; Charge for UA Resulting for Rev
[2021-10-31 14:39] LABS: Glucose Urine UA 4+ (Normal); Protein Urine Neg (Negative); Urine Appearance Clear (CLEAR); Urine Color Yellow (Yellow); pH Urine 5 (5-7)
[2021-10-31 14:40] LABS: Bilirubin Urine Neg (Negative); Blood Urine Neg (Negative); Ketones Urine 3+ (Negative); Leukocyte Esterase Urine Negative (Negative); Nitrate Urine Negative (Negative); Urobilinogen Urine Norm (Negative)
[2021-10-31 14:57] LABS: Alanine Aminotransferase 26 U/L (0-33); Aspartate Amino Transferase 13 U/L (0-32); Gamma Glutamyl Transferase 138 U/L (5-36); Lactate Dehydrogenase 197 U/L (135-214)
[2021-10-31 15:00] LABS: Glucose 734 mg/dL (65-115)
[2021-10-31 15:01] LABS: Base Excess VBG -21.1 mmol/L (-3.0-3.0); Blood Gas Operator Identificat glc; Blood Gas Sample Type Venous; HCO3 VBG 8.1 mmol/L (24-28); PCO2 VBG 28.8 mmHg (41-51); PO2 VBG 41.2 mmHg (25-40); Venous Blood Gas Hematocrit 44.4 % (37-47)
[2021-10-31 15:02] LABS: Blood Gas Sample Site Not specified
[2021-10-31 15:04] LABS: Ketone (Acetest) Serum Positive (Negative); pH VBG 7.06 (7.32-7.42)
[2021-10-31] MEDS: insulin regular-human 250 UNIT in sodium chloride 0.9% 250 ML 20.22 UNIT IV (15:04)
[2021-10-31 15:05] LABS: Blood Gas CCRB Time 1510
--- NOTE | 2021-10-31 15:07 | XR_ITS ---
WS: [id number] Portable AP upright chest, 10/31/2021 Clinical Data: sob Comparison: None. Findings: No nodules, masses or effusions are seen. The heart is normal. The pulmonary vascularity is not increased. No pneumonia or pneumothorax is seen. There is a scar of the lateral aspect of the ri ght diaphragm. There are surgical clips overlying the central portion of the right chest and in the l eft axilla. There are sclerotic changes of the left and right humeral heads and left and right glenoi d rims. Monitor leads are on the chest wall. XR/XR chest 1V portable [id number] Impression: 1. Elevation and scarring of the lateral aspect of the right diaphragm. 2. Sclerotic lesions of the humeral head and glenoid rims bilaterally which pro bably represent metastatic disease.
--- NOTE | 2021-10-31 15:07 | ECG_ITS ---
[facility] Test Date: 2021-10-31 Pat Name: Edie Dupont Department: Room: [facility] Gender: Female Product Designer: : 1955 Requested By: Javier Harrington Order Number: [id number] Lilo MD: Peace Pineda M.D. Measurements Intervals [place] Rate: 94 P: -17 UT: 170 QRS: 99 QRSD: 142 T: -56 QT: 411 QTc: 515 Interpretive Statements SINUS RHYTHM BORDERLINE RIGHT AXIS DEVIATION [QRS AXIS > 90] INTRAVENTRICULAR CONDUCTION DELAY [130+ ms QRS DURATION] Compared to ECG 10/31/2021 12:48:00 Left-axis deviation no longer present Myocardial infarct finding no longer present Electronically Signed On 10-31-2021 20:20:43 CDT by Peace Pineda M.D. [id number]
--- NOTE | 2021-10-31 15:25 | CT_ITS ---
WS: [id number] CTA OF THE CHEST WITH PULMONARY EMBOLISM PROTOCOL TECHNIQUE: High-resolution contrast enhanced CTA of the chest with coronal and sagittal reformatted i mages with pulmonary embolism protocol. MIP images are also reviewed. CLINICAL INFORMATION: sob COMPARISON: None. DLP: 568.[address] scans at [facility] use at least one of these dose optimization techniques: automated e xposure control; mA and/or kV adjustment per patient size (includes targeted exams where dose is matc hed to clinical indication); or iterative reconstruction. FINDINGS: Proximal main pulmonary arteries are normal. Normal segmental and subsegmental pulmonary arteries. No evidence for pulmonary embolus. Normal caliber thoracic aorta. Mild aortic calcification. No mediast inal or hilar lymphadenopathy. No axillary lymphadenopathy. Adrenal glands are normal. Small esophageal hiatal hernia. Air-fluid level in the stomach. Fluid dist ended stomach. Splenic artery calcification. Cholelithiasis. Mild thoracic kyphosis. Hypertrophic changes thoracic spine. Diffuse osseous metastatic disease throu ghout the visualized thoracic vertebral bodies and bony structures. Blastic bone metastasis in the vi sualized humeri and thoracic ribs. CT/CT angio chest PE protcl [id number] IMPRESSION: 1. Proximal main pulmonary arteries are normal. No evidence of pulmonary embol us. 2. Stable Fibrosis in the RIGHT lower lobe compatible with prior treated lesio n. 3. No acute pulmonary infiltrates. No focal pneumonia or pleural fluid. 4. Diffuse blastic osseous metastatic disease throughout the visualized bony s tructures. 5. Cholelithiasis.
--- NOTE | 2021-10-31 15:30 | P.HP_ITS ---
Providers/Chief Complaint Admitting Physician: Javier Harrington MD Primary Care Provider: Norma Butt Chief Complaint: FALL/ POSSIBLE BROKEN ANKLE History of Present Illness Edie Dupont is a 66 year old female with a past medical history of grade 3 lobular carcinoma the left breast stage IV, history of adenocarcinoma of right lower lobe status post [employer] radiosurgery, hypertension, type 1 diabetes, CAD status post 5 stents, history of asthma, history of GERD, history of anxiety depression, she recently had acute numbness of the right leg and loss of motor control, she was diagnosed with diabetic peripheral neuropathy of lumbar plexus,, she also was found to have 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 Patient tells me that she was recently at [facility] in [place], she had acute inability to move her right lower extremity with numbness, they did extensive evaluation she does have malignancy in her lumbar spine, but they told her that she had severe neuropathy of her lumbar plexus and this was the reason. Since then she has been doing physical therapy, she is doing well with physical therapy, she could ambulate around the hospital without any significant help. However starting on Wednesday she tells me she was not feeling well, she cannot put her finger on it, she is feeling much more short of breath, so she had to ambulate with a cane. She tells that she canceled her next physical therapy appointments because she was not feeling well, she is feeling short of breath, feeling tired, fatigue, malaise. Denies any fevers. Does have a cough. No dysuria. No hematuria. No abdominal pain. No flank pain. No headache. No blurry vision. No neck pain, no neck stiffness. No sick contacts. Here at [facility] she was found to have diabetic ketoacidosis. UA pending, chest x-ray pending Review of Systems Const: Reports: fatigue and malaise; Denies: fever(s) Eyes: Denies: change in vision ENMT: Denies: nasal congestion Card: Denies: chest pain, palpitations or edema Resp: Reports: dyspnea and non-productive cough; Denies: productive cough or wheezing GI: Reports: nausea; Denies: vomiting or hematemesis : Denies: dysuria Musc: Denies: neck pain or back pain Skin/Breast: Denies: rash Neuro: Denies: headache(s), dizziness or vertigo Endo: Denies: polyuria or polydipsia Medications/Allergies Home Medications Medication Instructions Recorded Confirmed Last Taken Type acyclovir 400 mg tablet 400 mg PO BID PRN 06/14/20 10/31/21 06/27/20 History aspirin 81 mg tablet,delayed 81 mg PO QAM 06/14/20 10/31/21 10/25/21 History release atorvastatin 80 mg tablet 80 mg PO BEDTIME 06/14/20 10/31/21 10/25/21 History esomeprazole magnesium 20 mg 40 mg PO DAILY 06/14/20 10/31/21 07/03/20 History capsule,delayed release (Nexium) fulvestrant 250 mg/5 mL 500 mg IM Q28D ml 06/14/20 10/31/21 Unknown History intramuscular syringe (Faslodex) gabapentin 800 mg tablet 800 mg PO TID tab 06/14/20 10/31/21 10/25/21 History see pharmacy comment isosorbide mononitrate 30 mg 30 mg PO BID tab 06/14/20 10/31/21 10/25/21 History tablet,extended release 24 hr see pharmacy comment levalbuterol tartrate 45 2 inh INHALATION Q6H PRN 06/14/20 10/31/21 Unknown History mcg/actuation aerosol inhaler (Xopenex HFA) lisinopril 5 mg tablet 5 mg PO QAM 06/14/20 10/31/21 10/25/21 History nitroglycerin 0.4 mg sublingual 0.4 mg SUBLINGUAL Q5M PRN 06/14/20 10/31/21 Unknown History tablet (Nitrostat) potassium gluconate 595 mg (99 mg) 595 mg PO QAM 06/14/20 10/31/21 07/03/20 History tablet venlafaxine 150 mg 150 mg PO DAILY 06/14/20 10/31/21 10/25/21 History capsule,extended release 24 hr (Effexor XR) furosemide 20 mg tablet (Lasix) 60 mg PO QAM tab 08/29/20 10/31/21 Unknown History metoprolol tartrate 50 mg tablet 50 mg PO BID tab 08/29/20 10/31/21 10/25/21 History pen needle, diabetic 32 gauge x #540 ea 08/29/20 10/31/21 Unknown Rx 32 (BD Kellie 2nd Gen Pen Needle) flash glucose sensor (FreeStyle #3 ea 04/11/21 10/31/21 Unknown Rx Sarah 2 Sensor) flash glucose scanning reader #1 ea 04/30/21 10/31/21 Unknown Rx (FreeStyle Sarah 2 Cyrus) subcutaneous insulin pump (Omnipod #1 ea 09/04/21 10/31/21 Unknown Rx Insulin Management) Injection For Her Bones See Rx Instructions .ROUTE .COMPLEX 10/31/21 10/31/21 Unknown History cholecalciferol (vitamin D3) 1,250 50,000 unit PO Q7D 10/31/21 10/31/21 10/25/21 History mcg (50,000 unit) capsule cyclobenzaprine 10 mg tablet 10 mg PO TID PRN 10/31/21 10/31/21 Unknown History insulin human U-100 NPH-regulr See Rx Instructions .ROUTE .COMPLEX 10/31/21 10/31/21 10/25/21 History 70-30 mix 100 unit/mL subcutaneous susp (Novolin 70/30 U-100 Insulin) levothyroxine 75 mcg tablet 75 mcg PO QAM 10/31/21 10/31/21 10/25/21 History (Euthyrox) metformin 500 mg tablet 1,000 mg PO BID 10/31/21 10/31/21 10/25/21 History Allergies Allergy/AdvReac Type Severity Reaction Status Date / Time abemaciclib [From Verzenio] Allergy ALGY-Difficulty Verified 06/04/21 10:10 Swallowing albuterol Allergy ADR/ALGY-Pa Verified 06/04/21 10:10 lpitations Penicillins Allergy ALGY-Rash Verified 06/04/21 10:10 pregabalin [From Lyrica] Allergy ALGY-Joint Verified 06/04/21 10:10 Pain Sulfa (Sulfonamide Allergy Unknown Verified 06/04/21 10:10 Antibiotics) PFSH Acute PFSH: Medical History (Updated 10/31/21 @ 15:48 by Javier Harrington MD) Breast cancer Depression Diabetes GERD (gastroesophageal reflux disease) Glaucoma Herpes simplex Hypertension Hypothyroidism Lung cancer Neuropathy Surgical History H/O colonoscopy (07/04/20) yrs ago H/O esophagogastroduodenoscopy (07/04/20) H/O foot surgery H/O shoulder surgery History of lumpectomy of left breast History of tonsillectomy Family History Other CAD (coronary artery disease) Cancer Hypertension Denies family history of Anesthesia complication Bleeding disorder Social History Smoking and tobacco status: never smoked Alcohol intake: never Lives independently: Yes Marital status: Single Current occupational status: retired History of recent travel: No Vitals/I&O/Wt Last Vital Signs Temp 98.4 F 10/31/21 12:52 Pulse 88 10/31/21 14:22 Resp 21 H 10/31/21 14:22 BP 162/90 10/31/21 14:22 Pulse Ox 100 10/31/21 12:52 Weight last 48 hrs Weight 80.286 kg Physical Exam Const: COMMON NORMALS: no acute distress and patient oriented x3 HENMT: COMMON NORMALS: normocephalic HEAD & SCALP: normocephalic Eye: COMMON NORMALS: Equal, round and reactive pupils present and EOMs intact bilaterally Neck/C-Spine: COMMON NORMALS: no JVD Lymph: LYMPHATIC: no lymphadenopathy noted Resp: COMMON NORMALS: normal respiratory effort, No retractions, No use of accessory muscles and clear to auscultation bilaterally AUSCULTATION: clear to auscultation bilaterally Cardio: COMMON NORMALS: no JVD, regular rate, regular rhythm, S1 normal heart sound present and S2 normal heart sound present RATE: regular rate RHYTHM: regular rhythm HEART SOUNDS: S1 normal heart sound present and S2 normal heart sound present GI: COMMON NORMALS: Normal to inspection, nondistended, normoactive bowel sounds present, Soft to palpation, non-tender, No hepatosplenomegaly present, no masses and no bruits PALPATION: Yes Soft to palpation and Yes No hepatosplenomegaly present Back/Pelvis: OTHER: Mottling bilateral lower extremity Bilateral DP PT pulses faintly palpable Extremity: COMMON NORMALS: capillary refill normal, no calf tenderness and no pedal edema Neuro: COMMON NORMALS: patient oriented x3 Psych: COMMON NORMALS: mental status grossly normal Data : 10/31/21 12:40 10/31/21 14:10 A&P Assessment and plan (1) DKA (diabetic ketoacidosis): Status: Acute (2) Severe diabetic hypoglycemia: Status: Acute (3) Breast cancer: Status: Acute (4) Lung cancer: Status: Acute (5) Shortness of breath: Status: Acute (6) Right leg weakness: Status: Acute Plan Diabetic ketoacidosis -Admit to ICU -Serial BMPs, serial mag, serial Phos -Monitor anion gap -Normal saline, potassium 6.4 -If potassium less than 4.5, hold insulin drip, replace potassium -Recheck potassium, will consider switching to normal saline with KCl -1 g calcium gluconate -Once blood sugars less than 200, will start D5 normal saline with 20 KCl -Once anion gap is less than 12 switch to long-acting and short acting -Keep n.p.o. 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, os teoblastic lesions, diffusely metastatic, during his hospitalization at [facility] as per patient there was no compression fracture, she was told that she had weakness due to diabetic neuropathy of the lumbar plexus, will obtain records from [facility] Attestations Medical Necessity Statement*: Patient requires hospitalization, inpatient, greater than 2 midnights, for diabetic ketoacidosis Coding Level of Care Code 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
[2021-10-31 16:11] LABS: Troponin(5th) Baseline 22 ng/L (0-10)
[2021-10-31 16:14] LABS: Lactic Sepsis W/Reflex 1.4 mmol/L (0.5-2.2)
[2021-10-31] MEDS: iodixanol 320 mg/mL 100mL Btl IV (16:17)
[2021-10-31 16:49] LABS: Glucose Point of Care 485 mg/dL (70-110)
--- NOTE | 2021-10-31 17:07 | ECG_ITS ---
[facility] Test Date: 2021-10-31 Pat Name: Edie Dupont Department: Room: [facility] Gender: Female Site Acquisition Manager: : 1955 Requested By: Javier Harrington Order Number: [id number] Lilo MD: Peace Pineda M.D. Measurements Intervals [place] Rate: 92 P: 77 WI: 154 QRS: -28 QRSD: 143 T: 222 QT: 410 QTc: 508 Interpretive Statements SINUS RHYTHM INTRAVENTRICULAR CONDUCTION DELAY [130+ ms QRS DURATION] Compared to ECG 10/31/2021 15:14:15 No significant changes Electronically Signed On 10-31-2021 20:27:43 CDT by Peace Pineda M.D. [id number]
[2021-10-31 17:28] LABS: Lipase 16 U/L (13-60); Magnesium 2.1 mg/dL (1.7-2.3); NT Pro B Type Natriuretic Pept 358 pg/mL (0-125)
[2021-10-31 17:31] LABS: Glucose Point of Care 403 mg/dL (70-110)
[2021-10-31 17:36] LABS: Troponin 5 2HR 23.67 ng/L (0-10)
[2021-10-31 17:43] LABS: Troponin 5 2HR Delta 1.67 ABS# (0-10)
--- NOTE | 2021-10-31 18:39 | PC.NURSE ---
Pt report called to Bethany OZUNA. Pt transferred to ICU room 5.
[2021-10-31 19:02] LABS: D Dimer 0.45 ug/mIFEU (0-0.59)
[2021-10-31 19:14] LABS: Glucose Point of Care 268 mg/dL (70-110)
[2021-10-31] MEDS: sodium chloride 0.9% 1,000 ML 125 ML IV (19:22)
[2021-10-31] MEDS: pantoprazole 40 mg SDV IVP (19:23)
--- NOTE | 2021-10-31 19:23 | PC.NURSE ---
Bedside report completed with Ingrid Glover RN. Shift Note Pt alert and oriented. Insulin tt remains infusing. Blood sugars improving. Pt's legs still slightly mottled. Dorsal pulses unequal: Left palpable, right unable to doppler. Right tibial pulse present with doppler. Frequent safety and comfort rounds continue. Orders and/or nursing care completed as indicated. Patient monitored for response to intervention and treatment(s). Education provided includes insulin gtt, nothing to eat or drink, anion gap and orientation to room and/or unit. Patient verbalized understanding. She asked appropriate questions. . Will continue to monitor.
[2021-10-31] MEDS: calcium gluconate 0.9% NaCL 1 GM/50 ML PREMIX IV (19:25)
[2021-10-31] MEDS: enoxaparin 40 mg/0.4 mL Syringe SUBCUT (19:27)
[2021-10-31] MEDS: isosorbide mononitrate ER 30 mg Tablet PO (19:27)
[2021-10-31] MEDS: metoprolol tartrate 50 mg Tablet PO (19:27)
[2021-10-31] MEDS: acetaminophen 325 mg Tablet 650 MG PO (19:35)
[2021-10-31] MEDS: atorvastatin 40 mg Tablet 80 MG PO (20:42)
[2021-10-31] MEDS: gabapentin 400 mg Capsule 800 MG PO (20:42)
--- NOTE | 2021-10-31 21:07 | ECG_ITS ---
[facility] Test Date: 2021-10-31 Pat Name: Edie Dupont Department: Room: [facility] Gender: Female Inspector And Mender: : 1955 Requested By: Javier Harrington Order Number: [id number] Lilo MD: Peace Pineda M.D. Measurements Intervals [place] Rate: 84 P: 66 VA: 169 QRS: -48 QRSD: 136 T: 168 QT: 414 QTc: 490 Interpretive Statements SINUS RHYTHM LEFT AXIS DEVIATION [QRS AXIS < -30] INTRAVENTRICULAR CONDUCTION DELAY [130+ ms QRS DURATION] ANTEROSEPTAL MYOCARDIAL INFARCTION , OF INDETERMINATE AGE [40+ ms Q WAVE IN V1-V4] Compared to ECG 10/31/2021 17:13:21 Left-axis deviation now present Myocardial infarct finding now present Electronically Signed On 11-01-2021 22:00:58 CDT by Peace Pineda M.D. [id number]
[2021-10-31 21:42] LABS: Estmated Average Glucose 263; Hemoglobin A1C 10.8 % (4.0-6.0)
[2021-10-31 21:45] LABS: Procalcitonin 0.08 ng/mL (0-0.5)
[2021-10-31 21:47] LABS: Troponin 5 6HR 23.85 ng/L (0-10); Troponin 5 6HR Delta 1.85 ng/L (0-12)
[2021-10-31 21:52] LABS: C Reactive Protein 5.6 mg/L (0.0-4.9)
[2021-10-31 22:17] LABS: Chol HDL Ratio 4.56 mg/dL (0.0-4.40); Cholesterol 178 mg/dL (0-200); HDL Cholesterol 39 mg/dL (60-100); LDL Cholesterol Calculated 103 mg/dL (50-129); LDL HDL Ratio 2.64 RATIO (0.00-3.22); Triglycerides 182 mg/dL (0-150)
[2021-10-31 22:26] LABS: Glucose Point of Care 157 mg/dL (70-110)
[2021-10-31 22:26] LABS: Glucose Point of Care 88 mg/dL (70-110)
[2021-10-31 22:26] LABS: Glucose Point of Care 105 mg/dL (70-110)
[2021-10-31 22:28] LABS: Phosphorus 1.7 mg/dL (2.5-4.5)
[2021-10-31] MEDS: dextrose 5%-sod chloride 0.9% 1,000 ML 125 ML IV (22:34)
[2021-10-31 23:43] LABS: Anion Gap 20.7 (5-19); Blood Urea Nitrogen 21 mg/dL (8-23); Calcium 9.2 mg/dL (8.5-10.5); Carbon Dioxide 13 mmol/L (22-29); Chloride 103 mmol/L (98-107); Glomerular Filtration Rate 62.3 mL/min (90-130); Glucose 79 mg/dL (65-115); Osmolality Calculated 278 mOsm/kg (285-295); Potassium 3.7 mmol/L (3.5-5.1); Sodium 133 mmol/L (136-145)
[2021-11-01] VITALS (20 sets, daily range): BP systolic 95–153; BP diastolic 41–96; PULSE 85–112; RESP 12–28; TEMP 36.6–36.8; O2SAT 91–100
--- NOTE | 2021-11-01 00:01 | USR_ITS ---
PROCEDURE INFORMATION: Exam: US Duplex Lower Extremity Arteries Exam date and time: 11/01/2021 7:26 AM Age: 66 years old Clinical indication: Poor pulses. Mottling lower extermity TECHNIQUE: Imaging protocol: Real-time ultrasound scan of the arteries of the bilateral lower extremities with 2-D hawkins scale, color Doppler flow and spectral waveform analysis. Images documented and saved. COMPARISON: US Pelvis Female [id number] 06/11/2016 8:30 AM FINDINGS: There is monophasic blood flow in the lower extremities bilaterally. RIGHT: The peak systolic velocity within the right iliac artery is 250 cm/s. The peak systolic velocity within the right common femoral artery is 170 cm/s. The peak systolic velocity within the proximal right femoral artery is 151 cm/s. The peak systolic velocity within the mid right femoral artery is 149 cm/s. The peak systolic velocity within the distal right femoral artery is 123 cm/s. The peak systolic velocity within the right popliteal artery is 94 cm/s. The peak systolic velocity within the right posterior tibialis artery is 43 cm/s. The peak systolic velocity within the right dorsalis pedis artery is 55 cm/s. The right ankle-brachial index is 0.5. LEFT: The peak systolic velocity within the left iliac artery is 245 cm/s. The peak systolic velocity within the left common femoral artery is 71 cm/s. The peak systolic velocity within the proximal left femoral artery is 71 cm/s. The peak systolic velocity within the mid left femoral artery is 55 cm/s. The peak systolic velocity within the distal left femoral artery is 73 cm/s. The peak systolic velocity within the left popliteal artery is 40 cm/s. The peak systolic velocity within the left posterior tibialis artery is 74 cm/s. The peak systolic velocity within the left dorsalis pedis artery is 46 cm/s. The left ankle-brachial index is 0.6. US/[place] [id number] IMPRESSION: 1. Elevated flow velocities in the iliac arteries suggest between 50 and 75% stenosis. 2. Elevated flow velocities in the right common femoral and proximal femoral arteries suggesting 30-50% stenosis. 3. The right ankle-brachial index is 0.5. 4. The left ankle-brachial index is 0.6.
--- NOTE | 2021-11-01 00:01 | USCV_ITS ---
Edie Dupont Age: 66 Gender: F : 1955 Exam Date: 11/01/2021 02:10 Ordering Phys: Javier Harrington MD Technologist: Darryl Heard [place]am [place] [facility] [place] Indication: dvt HISTORY: dvt PROCEDURES: Venous duplex imaging was performed in bilateral lower extremities. The following venous structures were evaluated: common femoral vein, profunda vein, proximal portion of the greater saphenous vein, superficial femoral vein, and the popliteal vein. In addition, the posterior tibial and peroneal trunk were evaluated. Serial compression, augmentation maneuvers, and spectral Doppler flow evaluation were performed. FINDINGS: Normal 2-D Doppler and augmentation and compressibility throughout the lower extremity venous structures. Additional imaging through the proximal calf veins also reveals no thrombus. Limited evaluation of the greater saphenous vein is patent with no thrombus.. CONCLUSIONS No evidence of DVT in the above-mentioned identifiable veins. Dr Peace Pineda MD [facility] (Electronically Signed) Final Date: 02 Nov 2021 16:25 S
[2021-11-01 00:17] LABS: Glucose Point of Care 116 mg/dL (70-110)
[2021-11-01 00:18] LABS: Glucose Point of Care 90 mg/dL (70-110)
--- NOTE | 2021-11-01 01:00 | PC.NURSE ---
Notified Dr. Carrillo of current chemistry results, orders given to D/C insulin drip, give 10 units lantus SQ now, change IVF to NS with 20meq KCL at 100mL/h, check blood glucose AC&HS with medium sliding scale, and change patients diet to consistent carb diet.
[2021-11-01] MEDS: sodium chlor 0.9% + KCl 20 mEq 20 MEQ/1,000 ML BAG 100 MEQ IV (01:03)
[2021-11-01] MEDS: insulin glargine 100 units/1 mL 10 UNIT SUBCUT (01:17)
[2021-11-01 04:23] LABS: Blood Urea Nitrogen 20 mg/dL (8-23); Calcium 8.6 mg/dL (8.5-10.5); Chloride 104 mmol/L (98-107); Glomerular Filtration Rate 71.3 mL/min (90-130); Glucose 213 mg/dL (65-115); Osmolality Calculated 279 mOsm/kg (285-295); Phosphorus 1.8 mg/dL (2.5-4.5); Sodium 130 mmol/L (136-145)
[2021-11-01 04:40] LABS: Anion Gap 21.5 (5-19); Carbon Dioxide 9 mmol/L (22-29); Potassium 4.5 mmol/L (3.5-5.1)
--- NOTE | 2021-11-01 04:45 | PC.NURSE ---
Notified Dr. Carrillo of current morning labs. K+ 4.5, Na+ 130, Anion Gap 21.5, Glucose 213, CO2 9. New orders given to restart insulin drip and change IV fluids to D5NS with 20meq KCL at 100mL/h.
[2021-11-01] MEDS: dextrose 5%-ns + KCl 20 20 MEQ/1,000 ML BAG 100 MEQ IV ×2 (05:03→17:40)
[2021-11-01] MEDS: pantoprazole 40 mg SDV IVP ×2 (06:08→18:01)
[2021-11-01] MEDS: levothyroxine 75 mcg Tablet PO (06:08)
[2021-11-01] MEDS: aspirin 81 mg EC Tablet PO (06:08)
[2021-11-01 07:08] LABS: Glucose Point of Care 221 mg/dL (70-110)
[2021-11-01 07:08] LABS: Glucose Point of Care 207 mg/dL (70-110)
[2021-11-01 07:08] LABS: Glucose Point of Care 225 mg/dL (70-110)
[2021-11-01 08:03] LABS: Glucose Point of Care 236 mg/dL (70-110)
[2021-11-01] MEDS: potassium chloride ER 20 mEq Tablet 40 MEQ PO (08:11)
[2021-11-01] MEDS: gabapentin 400 mg Capsule 800 MG PO ×3 (08:11→20:48)
[2021-11-01] MEDS: metoprolol tartrate 50 mg Tablet PO ×2 (08:11→18:00)
[2021-11-01] MEDS: venlafaxine ER (24HR) 150 mg Capsule PO (08:12)
[2021-11-01] MEDS: isosorbide mononitrate ER 30 mg Tablet PO ×2 (08:12→18:00)
[2021-11-01 08:39] LABS: Anion Gap 17.6 (5-19); Blood Urea Nitrogen 20 mg/dL (8-23); Calcium 8.5 mg/dL (8.5-10.5); Carbon Dioxide 13 mmol/L (22-29); Chloride 105 mmol/L (98-107); Glomerular Filtration Rate 71.3 mL/min (90-130); Glucose 237 mg/dL (65-115); Osmolality Calculated 284 mOsm/kg (285-295); Potassium 3.6 mmol/L (3.5-5.1); Sodium 132 mmol/L (136-145)
[2021-11-01 09:06] LABS: Glucose Point of Care 211 mg/dL (70-110)
[2021-11-01 09:31] LABS: Glucose Point of Care 380 mg/dL (70-110)
--- NOTE | 2021-11-01 09:32 | PC.NURSE ---
Dr. Harrington at bedside, gave v.o. to hold insulin drip until potassium comes up, one time order for 40 meq K rider and 20 meq po potassium one time
[2021-11-01] MEDS: lidocaine 1% 5 ML in potassium chloride premix 100 ML 25 ML IV (09:46)
[2021-11-01] MEDS: potassium chloride ER 20 mEq Tablet PO (09:47)
[2021-11-01 09:57] LABS: Glucose Point of Care 250 mg/dL (70-110)
[2021-11-01 10:04] LABS: Phosphorus 0.7 mg/dL (2.5-4.5)
--- NOTE | 2021-11-01 10:36 | PM.PN ---
Subjective Subjective: Patient was seen this morning, she tells me she is feeling a lot better, she is hungry, no nausea, no vomiting, Vitals/I&O/Wt Last Vital Signs Temp 98.2 F 11/01/21 04:00 Pulse 87 11/01/21 08:00 Resp 25 H 11/01/21 08:00 BP 129/54 11/01/21 08:00 Pulse Ox 95 11/01/21 07:00 10/31/21 11/01/21 11/01/21 22:59 06:59 14:59 Intake Total 213.737 / 213.737 210.467 / 424.204 16.185 / 16.185 Balance 213.737 / 213.737 210.467 / 424.204 16.185 / 16.185 Weight last 48 hrs Weight 80.286 kg Physical Exam Const: COMMON NORMALS: no acute distress and patient oriented x3 Resp: COMMON NORMALS: normal respiratory effort, No retractions, No use of accessory muscles and clear to auscultation bilaterally AUSCULTATION: clear to auscultation bilaterally Cardio: COMMON NORMALS: regular rate, regular rhythm, S1 normal heart sound present and S2 normal heart sound present RATE: regular rate RHYTHM: regular rhythm HEART SOUNDS: S1 normal heart sound present and S2 normal heart sound present GI: COMMON NORMALS: Normal to inspection, nondistended, normoactive bowel sounds present, Soft to palpation and non-tender PALPATION: Yes Soft to palpation Extremity: COMMON NORMALS: no pedal edema NARRATIVE EXTREMITY EXAM: Mottling improved bilateral lower extremity Neuro: COMMON NORMALS: patient oriented x3 Psych: COMMON NORMALS: mental status grossly normal Data : 10/31/21 12:40 11/01/21 08:00 Micro: Microbiology 10/31/21 15:37 Blood Culture - Preliminary Blood SPECIMEN COLLECTED 10/31/21 21:13 Blood Culture - Preliminary Blood SPECIMEN COLLECTED A&P Assessment and plan (1) DKA (diabetic ketoacidosis): Status: Acute (2) Severe diabetic hypoglycemia: Status: Acute (3) Breast cancer: Status: Acute (4) Lung cancer: Status: Acute (5) Shortness of breath: Status: Acute (6) Right leg weakness: Status: Acute Plan Diabetic ketoacidosis -Admit to ICU -Serial BMPs, serial mag, serial Phos -Monitor anion gap -D5 normal saline -If potassium less than 4.5, hold insulin drip, replace potassium -Recheck potassium, will consider switching to normal saline with KCl -Once blood sugars less than 200, will start D5 normal saline with 20 KCl -Once anion gap is less than 12 switch to long-acting and short acting -Keep n.p.o. -Full code -Lovenox for DVT prophylaxis Bilateral lower extremity mottling, decreased DP PT pulses, no pain, some pallor, -1. Elevated flow velocities in the iliac arteries suggest between 50 and 75% stenosis. 2. Elevated flow velocities in the right common femoral and proximal femoral arteries suggesting 30-50% stenosis. 3. The right ankle-brachial index is 0.5. 4. The left ankle-brachial index is 0.6. 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, osteoblastic lesions, diffusely metastatic, during his hospitalization at [facility] as per patient there was no compression fracture, she was told that she had weakness due to diabetic neuropathy of the lumbar plexus, will obtain records from [facility] Medical Necessity Statement*: Patient requires hospitalization for diabetic ketoacidosis Coding Level of Care Code Acute 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
[2021-11-01] MEDS: phosphorus 250 mg Tablet 500 MG PO ×3 (10:57→22:02)
[2021-11-01 11:05] LABS: Glucose Point of Care 219 mg/dL (70-110)
[2021-11-01 12:08] LABS: Glucose Point of Care 228 mg/dL (70-110)
[2021-11-01 13:06] LABS: Anion Gap 23.1 (5-19); Blood Urea Nitrogen 17 mg/dL (8-23); Calcium 8.8 mg/dL (8.5-10.5); Carbon Dioxide 11 mmol/L (22-29); Chloride 104 mmol/L (98-107); Glomerular Filtration Rate 83.2 mL/min (90-130); Glucose 230 mg/dL (65-115); Magnesium 1.9 mg/dL (1.7-2.3); Osmolality Calculated 285 mOsm/kg (285-295); Phosphorus 1.1 mg/dL (2.5-4.5); Potassium 5.1 mmol/L (3.5-5.1); Sodium 133 mmol/L (136-145)
[2021-11-01 13:17] LABS: Glucose Point of Care 338 mg/dL (70-110)
[2021-11-01 14:18] LABS: Glucose Point of Care 282 mg/dL (70-110)
--- NOTE | 2021-11-01 14:25 | PC.NURSE ---
after reviewing labs dr mcdaniels gave order to restart insulin drip
[2021-11-01] MEDS: magnesium sulfate premix 2 GM/50 ML PIGGYBACK IV (15:14)
[2021-11-01 15:25] LABS: Glucose Point of Care 244 mg/dL (70-110)
[2021-11-01 16:47] LABS: Glucose Point of Care 230 mg/dL (70-110)
[2021-11-01] MEDS: insulin regular-human 250 UNIT in sodium chloride 0.9% 250 ML 9 UNIT IV (16:47)
[2021-11-01 17:02] LABS: Anion Gap 21.7 (5-19); Blood Urea Nitrogen 16 mg/dL (8-23); Calcium 8.5 mg/dL (8.5-10.5); Carbon Dioxide 10 mmol/L (22-29); Chloride 104 mmol/L (98-107); Glomerular Filtration Rate 83.2 mL/min (90-130); Glucose 269 mg/dL (65-115); Magnesium 2.5 mg/dL (1.7-2.3); Osmolality Calculated 283 mOsm/kg (285-295); Potassium 4.7 mmol/L (3.5-5.1); Sodium 131 mmol/L (136-145)
[2021-11-01 17:21] LABS: Phosphorus 0.8 mg/dL (2.5-4.5)
[2021-11-01 17:37] LABS: Glucose Point of Care 217 mg/dL (70-110)
--- NOTE | 2021-11-01 17:47 | PC.NURSE ---
Critical phosphorus reported to dr. mcdaniels t.santos for 500 mg one time
[2021-11-01] MEDS: enoxaparin 40 mg/0.4 mL Syringe SUBCUT (18:01)
[2021-11-01 18:24] LABS: Glucose Point of Care 204 mg/dL (70-110)
[2021-11-01 19:41] LABS: Glucose Point of Care 175 mg/dL (70-110)
[2021-11-01 20:46] LABS: Blood Urea Nitrogen 14 mg/dL (8-23); Calcium 8.2 mg/dL (8.5-10.5); Carbon Dioxide 12 mmol/L (22-29); Chloride 108 mmol/L (98-107); Glomerular Filtration Rate 83.2 mL/min (90-130); Glucose 173 mg/dL (65-115); Magnesium 2.2 mg/dL (1.7-2.3); Osmolality Calculated 285 mOsm/kg (285-295); Phosphorus 1.3 mg/dL (2.5-4.5); Sodium 135 mmol/L (136-145)
[2021-11-01] MEDS: atorvastatin 40 mg Tablet 80 MG PO (20:48)
[2021-11-01 21:05] LABS: Glucose Point of Care 138 mg/dL (70-110)
[2021-11-01 21:05] LABS: Glucose Point of Care 163 mg/dL (70-110)
[2021-11-01 22:03] LABS: Glucose Point of Care 152 mg/dL (70-110)
[2021-11-01 23:14] LABS: Glucose Point of Care 111 mg/dL (70-110)
[2021-11-02] VITALS (20 sets, daily range): BP systolic 111–163; BP diastolic 46–95; PULSE 79–108; RESP 0–29; TEMP 36.7–36.9; O2SAT 94–98
[2021-11-02 00:10] LABS: Glucose Point of Care 130 mg/dL (70-110)
[2021-11-02 01:00] LABS: Bacillus cereus group Not Detected (NOT DETECT); Bacillus subtillis group Not Detected (NOT DETECT); Corynebacterium Not Detected (NOT DETECT); Cutibacterium acnes (P.acnes) Not Detected (NOT DETECT); Enterococcus Not Detected (NOT DETECT); Enterococcus faecalis Not Detected (NOT DETECT); Enterococcus faecium Not Detected (NOT DETECT); Lactobacillus species Not Detected (NOT DETECT); Listeria Not Detected (NOT DETECT); Listeria monocytogenes Not Detected (NOT DETECT); Micrococcus Detected (NOT DETECT); Pan Candida Not Detected (NOT DETECT); Pan Gram-Negative Not Detected (NOT DETECT); Staphylococcus epidermidis Not Detected (NOT DETECT); Staphylococcus lugdunensis Not Detected (NOT DETECT); Staphylococcus species Detected (NOT DETECT); Streptococcus agalactiae Not Detected (NOT DETECT); Streptococcus anginosus group Not Detected (NOT DETECT); Streptococcus pneumoniae Not Detected (NOT DETECT); Streptococcus pyogenes Not Detected (NOT DETECT); Streptococcus species Not Detected (NOT DETECT); mecA Not Detected (NOT DETECT); mecC Not Detected (NOT DETECT)
[2021-11-02 01:02] LABS: Anion Gap 17.6 (5-19); Blood Urea Nitrogen 12 mg/dL (8-23); Calcium 7.9 mg/dL (8.5-10.5); Carbon Dioxide 14 mmol/L (22-29); Chloride 109 mmol/L (98-107); Glomerular Filtration Rate 99.4 mL/min (90-130); Glucose 123 mg/dL (65-115); Magnesium 2.2 mg/dL (1.7-2.3); Osmolality Calculated 285 mOsm/kg (285-295); Potassium 3.6 mmol/L (3.5-5.1); Sodium 137 mmol/L (136-145)
[2021-11-02 01:08] LABS: Glucose Point of Care 117 mg/dL (70-110)
[2021-11-02 02:14] LABS: Glucose Point of Care 106 mg/dL (70-110)
[2021-11-02 03:07] LABS: Glucose Point of Care 110 mg/dL (70-110)
[2021-11-02] MEDS: dextrose 5%-ns + KCl 20 20 MEQ/1,000 ML BAG 100 MEQ IV (03:32)
[2021-11-02 04:12] LABS: Glucose Point of Care 120 mg/dL (70-110)
[2021-11-02 04:21] LABS: Basophils # 0.1 10^3/uL (0.0-0.1); Basophils % 1.1 %; Eosinophils # 0.1 10^3/uL (0.0-0.8); Hematocrit 30.8 % (37.0-47.0); Hemoglobin 10.5 g/dL (11.5-15.3); Lymphocytes # 1.1 10^3/uL (0.8-4.8); Lymphocytes % 25.2 %; Mean Corpuscular HGB Conc 34.1 g/dL (30.0-36.0); Mean Corpuscular Hemoglobin 29.2 pg (28.0-34.0); Mean Corpuscular Volume 85.8 fl (81-99); Mean Platelet Volume 10.7 fL (7.4-10.4); Monocytes # 0.2 10^3/uL (0.2-0.9); Monocytes % 5.2 %; Neutrophils # 2.92 10^3/uL (1.8-7.7); Neutrophils % 66.3 %; Nucleated Red Blood Cells % 0 %; Platelet Count 163 10^3/cmm (130-400); Red Blood Count 3.59 10^6/uL (4.1-5.3); Red Cell Distribution Width 13.1 % (12.1-15.1); White Blood Count 4.4 10^3/uL (4.0-10.0)
[2021-11-02 04:37] LABS: Alanine Aminotransferase 14 U/L (0-33); Alkaline Phosphatase 108 IU/L (35-105); Anion Gap 14.6 (5-19); Aspartate Amino Transferase 10 U/L (0-32); Blood Urea Nitrogen 12 mg/dL (8-23); Calcium 7.9 mg/dL (8.5-10.5); Carbon Dioxide 16 mmol/L (22-29); Chloride 109 mmol/L (98-107); Globulin 1.6 g/dL (1.3-4.6); Glomerular Filtration Rate 83.2 mL/min (90-130); Glucose 129 mg/dL (65-115); Magnesium 2.2 mg/dL (1.7-2.3); Osmolality Calculated 283 mOsm/kg (285-295); Potassium 3.6 mmol/L (3.5-5.1); Sodium 136 mmol/L (136-145); Total Bilirubin 0.2 mg/dL (0.15-1.2); Total Protein 4.6 g/dL (6.6-8.7)
[2021-11-02 05:05] LABS: Glucose Point of Care 103 mg/dL (70-110)
[2021-11-02] MEDS: levothyroxine 75 mcg Tablet PO (06:04)
[2021-11-02] MEDS: aspirin 81 mg EC Tablet PO (06:04)
[2021-11-02] MEDS: pantoprazole 40 mg SDV IVP ×2 (06:04→17:47)
[2021-11-02 06:05] LABS: Glucose Point of Care 113 mg/dL (70-110)
[2021-11-02 07:19] LABS: Glucose Point of Care 169 mg/dL (70-110)
[2021-11-02 08:33] LABS: Glucose Point of Care 159 mg/dL (70-110)
[2021-11-02 09:09] LABS: Anion Gap 15.5 (5-19); Blood Urea Nitrogen 10 mg/dL (8-23); Calcium 7.9 mg/dL (8.5-10.5); Carbon Dioxide 16 mmol/L (22-29); Chloride 109 mmol/L (98-107); Glomerular Filtration Rate 122.7 mL/min (90-130); Glucose 165 mg/dL (65-115); Magnesium 2.1 mg/dL (1.7-2.3); Osmolality Calculated 287 mOsm/kg (285-295); Phosphorus 1.7 mg/dL (2.5-4.5); Potassium 3.5 mmol/L (3.5-5.1); Sodium 137 mmol/L (136-145)
[2021-11-02] MEDS: gabapentin 400 mg Capsule 800 MG PO ×3 (09:33→21:07)
[2021-11-02] MEDS: isosorbide mononitrate ER 30 mg Tablet PO ×2 (09:33→17:47)
[2021-11-02] MEDS: venlafaxine ER (24HR) 150 mg Capsule PO (09:33)
[2021-11-02] MEDS: potassium chloride ER 20 mEq Tablet 40 MEQ PO (09:33)
[2021-11-02] MEDS: metoprolol tartrate 50 mg Tablet PO ×2 (09:33→17:46)
[2021-11-02 09:40] LABS: Glucose Point of Care 148 mg/dL (70-110)
[2021-11-02] MEDS: insulin glargine 100 units/1 mL 15 UNIT SUBCUT ×2 (10:11→21:03)
[2021-11-02] MEDS: phosphorus 250 mg Tablet 500 MG PO (10:11)
--- NOTE | 2021-11-02 10:14 | PC.NURSE ---
Dr. Harrington gave v.o. to give Lantus now, wait 30 minutes let patient eat and turn off insulin drip, start low dose sliding scale with lunch then [facility]
[2021-11-02 12:01] LABS: Glucose Point of Care 225 mg/dL (70-110)
[2021-11-02] MEDS: insulin lispro 100 unit/1 mL SUBCUT ×3 (12:18→20:53)
--- NOTE | 2021-11-02 13:18 | P.PN_ITS ---
Subjective Subjective: StillPatient was seen this morning, her gap closed overnight, 3 of Levophed, she tells me she is feeling better, no nausea, no vomiting, no abdominal pain, she tells that she has not gotten up out of bed, Vitals/I&O/Wt Last Vital Signs Temp 98.0 F 11/02/21 04:00 Pulse 81 11/02/21 12:00 Resp 19 H 11/02/21 12:00 BP 146/95 11/02/21 12:00 Pulse Ox 98 11/02/21 04:00 11/01/21 11/02/21 11/02/21 22:59 06:59 14:59 Intake Total 1979. 1015.335 / 3116.643 200 / 200 Output Total 0 / 0 Balance 1015.335 / 3116.643 200 / 200 Physical Exam Const: COMMON NORMALS: no acute distress and patient oriented x3 Resp: COMMON NORMALS: normal respiratory effort, No retractions, No use of accessory muscles and clear to auscultation bilaterally AUSCULTATION: clear to auscultation bilaterally Cardio: COMMON NORMALS: regular rate, regular rhythm, S1 normal heart sound present and S2 normal heart sound present RATE: regular rate RHYTHM: re gular rhythm HEART SOUNDS: S1 normal heart sound present and S2 normal heart sound present GI: COMMON NORMALS: Normal to inspection, nondistended, normoactive bowel sounds present, Soft to palpation, non-tender and No hepatosplenomegaly present PALPATION: Yes Soft to palpation and Yes No hepatosplenomegaly present Extremity: COMMON NORMALS: no pedal edema Neuro: COMMON NORMALS: patient oriented x3 Psych: COMMON NORMALS: mental status grossly normal Data : 11/02/21 04:09 11/02/21 08:00 Micro: Microbiology 10/31/21 15:37 Blood Culture - Preliminary Blood Micrococcus and related specie 10/31/21 21:13 Blood Culture - Preliminary Blood NEGATIVE TO DATE A&P Assessment and plan (1) DKA (diabetic ketoacidosis): Status: Acute (2) Severe diabetic hypoglycemia: Status: Acute (3) Breast cancer: Status: Acute (4) Lung cancer: Status: Acute (5) Shortness of breath: Status: Acute (6) Right leg weakness: Status: Acute Plan Diabetic ketoacidosis, resolved -Will move out of ICU -Monitor anion gap You in the hospital we do not have Novolin 70/30 -Lantus 15 units twice daily, low-dose sliding scale -Full code -Lovenox for DVT prophylaxis 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 Elevated flow velocities in the iliac arteries suggest between 50 and 75% stenosis. 2. Elevated flow velocities in the right common femoral and proximal femoral arteries suggesting 30-50% stenosis. 3. The right ankle-brachial index is 0.5. 4. The left ankle-brachial index is 0.6. 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, osteoblastic lesions, diffusely metastatic, during his hospitalization at [facility] as per patient there was no compression fracture, she was told that she had weakness due to diabetic neuropathy of the lumbar plexus, [facility] Att[facility] Medical Necessity Statement*: Patient requires hospitalization for DKA Coding Level of Care Code 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
--- NOTE | 2021-11-02 13:26 | CTR_ITS ---
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 Radiation optimization: All CT scans at this facility use at least one of these dose optimization techniques: automated exposure control; mA and/or kV adjustment per patient size (includes targeted exams where dose is matched to clinical indication); or iterative reconstruction. COMPARISON: MR lumbar spine wo/w con [id number] 08/13/2021 1:03 AM RADIATION DOSE METRICS: Total DLP (mGy-cm): 2177.24 FINDINGS: Vertebrae: L1 vertebral body lytic bony lesion along with a L4 vertebral body sclerotic bony lesion with additional scattered lytic and sclerotic bony lesions throughout the visualized osseous structures consistent with metastatic disease. L1-L2: No significant disc protrusion. No severe spinal canal stenosis. No significant neural foraminal narrowing. L2-L3: No significant disc protrusion. No severe spinal canal stenosis. No significant neural foraminal narrowing. L3-L4: L3-L4 broad-based disc bulge with mild spinal canal and bilateral foraminal narrowing. L4-L5: L4-L5 broad-based disc bulge with moderate spinal canal and bilateral foraminal narrowing. L5-S1: L5/S1 broad-based disc bulge with mild spinal canal and moderate bilateral foraminal narrowing. Soft tissues: Unremarkable. CT/CT lumbar spine wo con* [id number] IMPRESSION: 1. L1 vertebral body lytic bony lesion along with a L4 vertebral body sclerotic bony lesion with additional scattered lytic and sclerotic bony lesions throughout the visualized osseous structures consistent with metastatic disease. 2. L3-L4 broad-based disc bulge with mild spinal canal and bilateral foraminal narrowing. 3. L4-L5 broad-based disc bulge with moderate spinal canal and bilateral foraminal narrowing. 4. L5/S1 broad-based disc bulge with mild spinal canal and moderate bilateral foraminal narrowing.
[2021-11-02 15:06] LABS: Anion Gap 14.6 (5-19); Blood Urea Nitrogen 10 mg/dL (8-23); Calcium 7.7 mg/dL (8.5-10.5); Carbon Dioxide 16 mmol/L (22-29); Chloride 108 mmol/L (98-107); Glomerular Filtration Rate 99.4 mL/min (90-130); Glucose 335 mg/dL (65-115); Magnesium 2.2 mg/dL (1.7-2.3); Osmolality Calculated 290 mOsm/kg (285-295); Phosphorus 2.1 mg/dL (2.5-4.5); Potassium 4.6 mmol/L (3.5-5.1); Sodium 134 mmol/L (136-145)
[2021-11-02 15:13] LABS: Glucose Point of Care 390 mg/dL (70-110)
[2021-11-02 17:14] LABS: Glucose Point of Care 369 mg/dL (70-110)
[2021-11-02] MEDS: cilostazol 100 mg Tablet PO (17:47)
[2021-11-02] MEDS: enoxaparin 40 mg/0.4 mL Syringe SUBCUT (17:47)
[2021-11-02] MEDS: atorvastatin 40 mg Tablet 80 MG PO (21:08)
[2021-11-03] VITALS: BP 135/60; PULSE 80; RESP 17; TEMP 37.1; O2SAT 97
[2021-11-03 04:00] VITALS: BP 141/68; PULSE 95; RESP 17; TEMP 36.6; O2SAT 95
[2021-11-03 04:25] LABS: Basophils # 0.1 10^3/uL (0.0-0.1); Basophils % 1.4 %; Eosinophils # 0.1 10^3/uL (0.0-0.8); Hematocrit 31.8 % (37.0-47.0); Hemoglobin 10.8 g/dL (11.5-15.3); Lymphocytes # 0.9 10^3/uL (0.8-4.8); Lymphocytes % 26.1 %; Mean Corpuscular Hemoglobin 29.1 pg (28.0-34.0); Mean Corpuscular Volume 85.7 fl (81-99); Monocytes # 0.3 10^3/uL (0.2-0.9); Monocytes % 7.2 %; Neutrophils # 2.13 10^3/uL (1.8-7.7); Neutrophils % 61.3 %; Nucleated Red Blood Cells % 0 %; Platelet Count 156 10^3/cmm (130-400); Red Blood Count 3.71 10^6/uL (4.1-5.3); Red Cell Distribution Width 13.1 % (12.1-15.1); White Blood Count 3.5 10^3/uL (4.0-10.0)
[2021-11-03 04:41] LABS: Alanine Aminotransferase 18 U/L (0-33); Alkaline Phosphatase 121 IU/L (35-105); Anion Gap 14.7 (5-19); Aspartate Amino Transferase 23 U/L (0-32); Blood Urea Nitrogen 8 mg/dL (8-23); Carbon Dioxide 18 mmol/L (22-29); Chloride 109 mmol/L (98-107); Globulin 1.8 g/dL (1.3-4.6); Glomerular Filtration Rate 122.7 mL/min (90-130); Glucose 262 mg/dL (65-115); Magnesium 2.1 mg/dL (1.7-2.3); Osmolality Calculated 293 mOsm/kg (285-295); Phosphorus 1.7 mg/dL (2.5-4.5); Potassium 3.7 mmol/L (3.5-5.1); Sodium 138 mmol/L (136-145); Total Bilirubin 0.2 mg/dL (0.15-1.2); Total Protein 4.8 g/dL (6.6-8.7)
[2021-11-03 06:00] VITALS: PULSE 87
[2021-11-03 08:00] VITALS: BP 125/69; PULSE 87; PULSE 99; RESP 13; TEMP 36.7; O2SAT 97
[2021-11-03] MEDS: venlafaxine ER (24HR) 150 mg Capsule PO (08:22)
[2021-11-03] MEDS: isosorbide mononitrate ER 30 mg Tablet PO (08:22)
[2021-11-03] MEDS: pantoprazole 40 mg SDV IVP (08:22)
[2021-11-03] MEDS: levothyroxine 75 mcg Tablet PO (08:22)
[2021-11-03] MEDS: gabapentin 400 mg Capsule 800 MG PO (08:22)
[2021-11-03] MEDS: aspirin 81 mg EC Tablet PO (08:22)
[2021-11-03] MEDS: cilostazol 100 mg Tablet PO (08:22)
[2021-11-03] MEDS: insulin lispro 100 unit/1 mL SUBCUT (08:23)
[2021-11-03 08:32] LABS: Glucose Point of Care 100 mg/dL (70-110)
[2021-11-03 08:32] LABS: Glucose Point of Care 247 mg/dL (70-110)
[2021-11-03 08:32] LABS: Glucose Point of Care 257 mg/dL (70-110)
[2021-11-03 08:32] LABS: Glucose Point of Care 403 mg/dL (70-110)
[2021-11-03] MEDS: metoprolol tartrate 50 mg Tablet PO (08:36)
[2021-11-03 10:12] LABS: Glucose Point of Care 474 mg/dL (70-110)
--- NOTE | 2021-11-03 10:20 | PC.SOCIAL ---
Pg 2 IMM Explained to pt Pg 2 IMM. No questions voiced. provided pt a copy. Initialed, dated, & timed a copy & placed in chart.
--- NOTE | 2021-11-03 10:24 | PM.DCS ---
Discharge Providers Date of Admission: 10/31/21 14:17 Date of Discharge: November 03, 2021 Attending Provider at Admission: Javier Harrington MD Attending Provider at Discharge: Kyler Blake Primary Care Provider: Norma Butt Diagnoses at Discharge Discharge Diagnosis (1) DKA (diabetic ketoacidosis): Status: Acute (2) Severe diabetic hypoglycemia: Status: Acute (3) Breast cancer: Status: Acute (4) Lung cancer: Status: Acute (5) Shortness of breath: Status: Acute (6) Right leg weakness: Status: Acute Reason for Visit Reason for Visit: FALL/ POSSIBLE BROKEN ANKLE Hospital Course Hospital Course Pleasant 66-year-old lady with grade 3 lobular carcinoma the left breast stage IV, 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 Was admitted after presenting with malaise, generalized weakness, fatigue, shortness of breath, with finding of DKA, dehydration, received IV hydration, initially on insulin drip. She was noted mottling of lower extremities, assessed with arterial duplex with noted elevated flow velocities and iliac artery suggesting 50-75% stenosis. Elevated flow velocities in the right common femoral and proximal femoral artery suggesting 30-50% stenosis. Are ANUJ 0.5, L ANUJ 0.6. Perfusion improved with rehydration, resolution of DKA. Continued on aspirin, statin, cilostazol was added. She is referred for follow-up with interventional cardiology. CT angiogram of the chest was negative for PE. With noted stable fibrosis in right lower lobe compatible with prior treated lesion. No acute pulmonary infiltrates. No pneumonia or pleural fluid. Diffuse blastic osseous metastatic disease throughout the visualized bony structures. Cholelithiasis. Bilateral lower extremity venous duplex negative for DVT. CT lumbar spine with noted L1 vertebral body lytic lesion along with L4 vertebral body sclerotic bone lesion with additional scattered lytic and sclerotic bony lesions throughout the visualized osseous structures consistent with metastatic disease. Also noted L3-S1 disc bulges with mild spinal canal stenosis and in some occasions moderate bilateral foraminal narrowing. With resolution of DKA she has been feeling much better. She has been up and ambulated with a Rollator with physical therapy 60 feet today, 100 feet yesterday. She will continue outpatient physical therapy after discharge. She reports that she has been out of sensors on Essential Viewingstyle sarah. Given prescription for conventional glucometer. Also given prescription as discussed with her for a Levemir, [facility] [place] this is worked well with her with the photography assistant, although currently appears to have lower requirement with 15 units twice daily Levemir, mild sliding scale for now with NovoLog. She is given refills. Asked to follow-up with endocrinology. Physical Exam Narrative: Did not has any complaints, pain or discomfort. Reports he feels well and ready to return home. Const: COMMON NORMALS: alert GENERAL APPEARANCE: cooperative ORIENTATION/CONSCIOUSNESS: Yes awake HENMT: COMMON NORMALS: normocephalic, EAC's normal, Normal external nose present and moist oral mucous membranes HEAD & SCALP: normocephalic NOSE: Normal external nose present EXTERNAL AUDITORY CANAL: EAC's normal Neck/C-Spine: COMMON NORMALS: no meningeal signs Chest: CHEST: Yes Symmetrical chest wall rise Resp: COMMON NORMALS: clear to auscultation bilaterally AUSCULTATION: clear to auscultation bilaterally Cardio: COMMON NORMALS: regular rate, regular rhythm and No murmurs present (Cardio) RATE: regular rate RHYTHM: regular rhythm GI: COMMON NORMALS: Normal to inspection, nondistended, normoactive bowel sounds present, Soft to palpation and non-tender PALPATION: Yes Soft to palpation Extremity: COMMON NORMALS: no pedal edema Neuro: COMMON NORMALS: moves all extremities SENSORIUM/ORIENTATION: Yes alert MENINGEAL SIGNS: Yes no meningeal signs Psych: COMMON NORMALS: mental status grossly normal Skin: COMMON NORMALS: no wounds RASHES: no rashes Discharge Data Studies Completed and Pending Completed Studies During Hospitalization Category Date Time Status CT angio chest PE protcl [id number] Stat Cat Scan 10/31/21 15:[address] head wo con* [id number] Urgent Cat Scan 10/31/21 12:[address] lumbar spine wo con* [id number] Routine Cat Scan 11/02/21 13:26 Completed XR ankle RT min 3V* [id number] Urgent Exams 10/31/21 12:34 Completed XR chest 1V portable [id number] Routine Exams 10/31/21 15:07 [place] [id number] Routine Ultrasound 11/01/21 00:01 [place] [id number] Routine Ultrasound 11/01/21 00:01 Completed Pending at discharge Category Date Time Status Blood Culture Routine Lab 10/31/21 15:37 Results Complete Blood Count w/Auto AM LABS Lab 11/04/21 04:00 Ordered Comprehensive Metabolic Panel AM LABS Lab 11/04/21 04:00 Ordered Magnesium AM LABS Lab 11/04/21 04:00 Ordered Phosphorus AM LABS Lab 11/04/21 04:00 Ordered Radiology Impressions Ankle X-Ray 10/31/21 12:34 IMPRESSION: No acute osseous abnormality. Head CT 10/31/21 12:34 IMPRESSION: 1. No evidence of intracranial hemorrhage or mass effect. 2. Mild small vessel changes with moderate parenchymal volume loss. 3. RIGHT parietal scalp edema about the vertex. No underlying calvarial fractures. 4. No acute intracranial findings. Chest X-Ray 10/31/21 15:07 Impression: 1. Elevation and scarring of the lateral aspect of the right diaphragm. 2. Sclerotic lesions of the humeral head and glenoid rims bilaterally which probably represent metastatic disease. Chest CTA 10/31/21 15:25 IMPRESSION: 1. Proximal main pulmonary arteries are normal. No evidence of pulmonary embolus. 2. Stable Fibrosis in the RIGHT lower lobe compatible with prior treated lesion. 3. No acute pulmonary infiltrates. No focal pneumonia or pleural fluid. 4. Diffuse blastic osseous metastatic disease throughout the visualized bony structures. 5. Cholelithiasis. Duplex Scan Lower Extremity Artery 11/01/21 00:01 IMPRESSION: 1. Elevated flow velocities in the iliac arteries suggest between 50 and 75% stenosis. 2. Elevated flow velocities in the right common femoral and proximal femoral arteries suggesting 30-50% stenosis. 3. The right ankle-brachial index is 0.5. 4. The left ankle-brachial index is 0.6. Lumbar Spine CT 11/02/21 13:26 IMPRESSION: 1. L1 vertebral body lytic bony lesion along with a L4 vertebral body sclerotic bony lesion with additional scattered lytic and sclerotic bony lesions throughout the visualized osseous structures consistent with metastatic disease. 2. L3-L4 broad-based disc bulge with mild spinal canal and bilateral foraminal narrowing. 3. L4-L5 broad-based disc bulge with moderate spinal canal and bilateral foraminal narrowing. 4. L5/S1 broad-based disc bulge with mild spinal canal and moderate bilateral foraminal narrowing. Laboratory Results WBC 3.5 10^3/uL (4.0-10.0) L 11/03/21 04:10 RBC 3.71 10^6/uL (4.1-5.3) L 11/03/21 04:10 Hgb 10.8 g/dL (11.5-15.3) L 11/03/21 04:10 Hct 31.8 % (37.0-47.0) L 11/03/21 04:10 MCV 85.7 fl (81-99) 11/03/21 04:10 MCH 29.1 pg (28.0-34.0) 11/03/21 04:10 MCHC 34.0 g/dL (30.0-36.0) 11/03/21 04:10 RDW 13.1 % (12.1-15.1) 11/03/21 04:10 Plt Count 156 10^3/cmm (130-400) 11/03/21 04:10 MPV 11.0 fL (7.4-10.4) H 11/03/21 04:10 Neut % (Auto) 61.3 % 11/03/21 04:10 Lymph % (Auto) 26.1 % 11/03/21 04:10 [place] % (Auto) 7.2 % 11/03/21 04:10 Eos % (Auto) 4.0 % 11/03/21 04:10 Baso % (Auto) 1.4 % 11/03/21 04:10 Neut # (Auto) 2.13 10^3/uL (1.8-7.7) 11/03/21 04:10 Lymph # (Auto) 0.9 10^3/uL (0.8-4.8) 11/03/21 04:10 [place] # (Auto) 0.3 10^3/uL (0.2-0.9) 11/03/21 04:10 Eos # (Auto) 0.1 10^3/uL (0.0-0.8) 11/03/21 04:10 Baso # (Auto) 0.1 10^3/uL (0.0-0.1) 11/03/21 04:10 Nucleated RBC % (auto) 0 % 11/03/21 04:10 Nucleated RBCs # 0.0 /100WBC 11/03/21 04:10 D-Dimer 0.45 ug/mIFEU (0-0.59) 10/31/21 15:25 Specimen Type Venous 10/31/21 14:44 Sample Site Not specified 10/31/21 14:44 Arthur Test N/a 10/31/21 14:44 VBG pH 7.06 (7.32-7.42) L* 10/31/21 14:44 VBG pCO2 28.8 mmHg (41-51) L 10/31/21 14:44 VBG pO2 41.2 mmHg (25-40) H 10/31/21 14:44 VBG HCO3 8.1 mmol/L (24-28) L 10/31/21 14:44 VBG Base Excess -21.1 mmol/L (-3.0-3.0) L 10/31/21 14:44 VBG Hematocrit 44.4 % (37-47) 10/31/21 14:44 O2 Delivery Device Not Reportable 10/31/21 14:44 Specimen Drawn By Symda 10/31/21 14:44 Retread Technician ID glc 10/31/21 14:44 Blood Gas Notified Time 1510 10/31/21 14:44 Sodium 138 mmol/L (136-145) 11/03/21 04:10 Potassium 3.7 mmol/L (3.5-5.1) 11/03/21 04:10 Chloride 109 mmol/L (98-107) H 11/03/21 04:10 Carbon Dioxide 18 mmol/L (22-29) L 11/03/21 04:10 Anion Gap 14.7 (5-19) 11/03/21 04:10 BUN 8 mg/dL (8-23) 11/03/21 04:10 Creatinine 0.5 mg/dL (0.5-0.9) 11/03/21 04:10 GFR Calculation 122.7 mL/min (90-130) 11/03/21 04:10 Glucose 262 mg/dL (65-115) H 11/03/21 04:10 POC Glucose 474 mg/dL (70-110) H 11/03/21 10:08 Estimat Average Glucose 263 10/31/21 12:41 Hemoglobin A1c 10.8 % (4.0-6.0) H 10/31/21 12:41 Calculated Osmolality 293 mOsm/kg (285-295) 11/03/21 04:10 Lactic Acid 1.4 mmol/L (0.5-2.2) 10/31/21 15:33 Calcium 8.0 mg/dL (8.5-10.5) L 11/03/21 04:10 Phosphorus 1.7 mg/dL (2.5-4.5) L 11/03/21 04:10 Magnesium 2.1 mg/dL (1.7-2.3) 11/03/21 04:10 Total Bilirubin 0.2 mg/dL (0.15-1.2) 11/03/21 04:10 GGT 138 U/L (5-36) H 10/31/21 12:40 AST 23 U/L (0-32) 11/03/21 04:10 ALT 18 U/L (0-33) 11/03/21 04:10 Alkaline Phosphatase 121 IU/L (35-105) H 11/03/21 04:10 Lactate Dehydrogenase 197 U/L (135-214) 10/31/21 12:40 Troponin T Baseline 22 ng/L (0-10) H 10/31/21 15:25 Troponin T 120 Minute 23.67 ng/L (0-10) H 10/31/21 16:40 Delta Troponin T 1.67 ABS# (0-10) 10/31/21 16:40 Troponin T Hi Sens 6Hr 23.85 ng/L (0-10) H 10/31/21 21:13 Troponin T Hi Sens 6Hr Delta 1.85 ng/L (0-12) 10/31/21 21:13 C-Reactive Protein 5.6 mg/L (0.0-4.9) H 10/31/21 21:13 C-Reactive Protein Cancelled 10/31/21 21:13 NT-Pro-B Natriuret Pep 358 pg/mL (0-125) H 10/31/21 15:25 Total Protein 4.8 g/dL (6.6-8.7) L 11/03/21 04:10 Albumin 3.0 g/dL (3.5-5.2) L 11/03/21 04:10 Globulin 1.8 g/dL (1.3-4.6) 11/03/21 04:10 Triglycerides 182 mg/dL (0-150) H 10/31/21 21:13 Cholesterol 178 mg/dL (0-200) 10/31/21 21:13 LDL Cholesterol, Calc 103 mg/dL (50-129) 10/31/21 21:13 HDL Cholesterol 39 mg/dL (60-100) L 10/31/21 21:13 LDL/HDL Ratio 2.64 RATIO (0.00-3.22) 10/31/21 21:13 Cholesterol/HDL Ratio 4.56 mg/dL (0.0-4.40) H 10/31/21 21:13 Lipase 16 U/L (13-60) 10/31/21 15:25 Procalcitonin 0.08 ng/mL (0-0.5) 10/31/21 21:13 TSH 5.80 uIU/mL (0.27-4.20) H 10/31/21 21:13 Urine Color Yellow (Yellow) 10/31/21 14:24 Urine Appearance Clear (CLEAR) 10/31/21 14:24 Urine pH 5 (5-7) 10/31/21 14:24 Ur Specific [place] 1.020 (1.005-1.030) 10/31/21 14:24 Urine Protein Neg (Negative) 10/31/21 14:24 Urine Glucose (UA) 4+ (Normal) H 10/31/21 14:24 Urine Ketones 3+ (Negative) H 10/31/21 14:24 Urine Blood Neg (Negative) 10/31/21 14:24 Urine Nitrate Negative (Negative) 10/31/21 14:24 Urine Bilirubin Neg (Negative) 10/31/21 14:24 Urine Urobilinogen Norm mg/dL (Negative) 10/31/21 14:24 Ur Leukocyte Esterase Negative (Negative) 10/31/21 14:24 Serum Ketones Positive (Negative) H 10/31/21 14:44 Vitals Last Vital Signs Temp 98.1 F 11/03/21 08:00 Pulse 87 11/03/21 08:00 Resp 13 11/03/21 08:00 BP 125/69 11/03/21 08:00 Pulse Ox 97 11/03/21 08:00 Discharge Plan Discharge Patient Disposition: Home Condition: Stable Prescriptions: New (DME) diabetic supplies, miscellan. Misc See Rx Instructions .Route Qty: 1 0RF Rx Instructions: As directed cilostazol 100 mg Tablet 100 mg PO BID Qty: 180 0RF Levemir FlexTouch U-100 Insuln 100 unit/mL (3 mL) insulin pen 15 unit SUBCUT BID Qty: 15 6RF insulin aspart U-100 [Novolog Flexpen U-100 Insulin] 100 unit/mL (3 mL) insulin pen See Rx Instructions .ROUTE .COMPLEX Qty: 15 6RF Rx Instructions: ACHS. Glucose: 141-180 - 2 units 181-220 - 3 221-260 - 4 261-300 - 5 301-350 - 6 351-400 - 7 >400 - 8 units Continued lisinopril 5 mg tablet 5 mg PO QAM 0RF atorvastatin 80 mg tablet 80 mg PO BEDTIME 0RF venlafaxine [Effexor XR] 150 mg capsule,extended release 24hr 150 mg PO DAILY 0RF isosorbide mononitrate 30 mg tablet extended release 24 hr 30 mg PO BID 0RF gabapentin 800 mg tablet 800 mg PO TID 0RF acyclovir 400 mg tablet 400 mg PO BID PRN (Reason: breakouts) 0RF levalbuterol tartrate [Xopenex HFA] 45 mcg/actuation HFA aerosol inhaler 2 inh inhalation Q6H PRN (Reason: Shortness Of Breath) 0RF fulvestrant [Faslodex] 250 mg/5 mL syringe 500 mg IM Q28D 0RF Rx Instructions: may divide dose into 2 equally divided injections; one into each buttock esomeprazole magnesium [Nexium] 20 mg capsule,delayed release(DR/EC) 40 mg PO DAILY 0RF potassium gluconate 595 mg (99 mg) tablet 595 mg PO QAM 0RF aspirin 81 mg tablet,delayed release (DR/EC) 81 mg PO QAM 0RF nitroglycerin [Nitrostat] 0.4 mg tablet, sublingual 0.4 mg sublingual Q5M PRN (Reason: Chest Pain) 0RF Rx Instructions: do not exceed 3 doses per episode furosemide [Lasix] 20 mg tablet 60 mg PO QAM 0RF metoprolol tartrate 50 mg tablet 50 mg PO BID 0RF (DME) pen needle, diabetic [BD Kellie 2nd Gen Pen Needle] 32 gauge x 5/32 needle See Rx Instructions .ROUTE .MEDSUPPLY Qty: 540 3RF Rx Instructions: As directed (DME) Omnipod Insulin Management Misc See Rx Instructions .ROUTE Qty: 1 0RF Rx Instructions: As directed (DME) FreeStyle Sarah 2 Sensor Kit See Rx Instructions .Route Qty: 3 3RF Rx Instructions: As directed (DME) FreeStyle Sarah 2 [place] Misc See Rx Instructions .Route Qty: 1 3RF Rx Instructions: Check BS 4 times a day. cyclobenzaprine 10 mg tablet 10 mg PO TID PRN (Reason: Spasms) 0RF cholecalciferol (vitamin D3) 1,250 mcg (50,000 unit) capsule 50,000 unit PO Q7D 0RF Rx Instructions: on sat metformin 500 mg tablet 1,000 mg PO BID 0RF Euthyrox 75 mcg tablet 75 mcg PO QAM 0RF Injection For Her Bones See Rx Instructions .ROUTE .COMPLEX 0RF Rx Instructions: as directed Discontinued Novolin 70/30 U-100 Insulin 100 unit/mL (70-30) Suspension See Rx Instructions .ROUTE .COMPLEX 0RF Rx Instructions: 40 units subcutaneously qam and 30 units at bedtime Discharge Orders: Discharge Order (Routine); Ordered 11/03/21 Ordered By: Kyler Blake Referrals: Jasper Esquivel M.D [Physician] - 2 weeks (PAD) Norma Butt [Primary Care Provider] - 11/07/21 1:00 pm Marleen Holland MD [Physician] - 2 weeks (DKA) Discharge Diet: Cardiac and Diabetic Discharge Activity: Increase activity as tolerated, Use walker/crutches as instructed and As per PT/OT instructions Patient Instructions: Cilostazol (By mouth), Lumbar Disc Herniation (GEN), Diabetic Ketoacidosis (GEN), Peripheral Artery Disease (GEN) Activity Restrictions/Additional Instructions: Continue outpatient physical therapy. Discussed with your primary doctor noted bulging disks in L3-S1 levels. CT also shows diffuse metastatic lesions to bone. Continue follow-up with your primary provider, cancer doctor. Continue follow-up regarding neuropathy. Continue follow-up with your photography assistant. Continue arrangements for freestyle sarah sensors. For now use glucometer until sensors are available. Contact your photography assistant's office in case blood glucose is increasing, not controlled with prescribed regimen. In case you start feeling unwell, nauseated, with poor appetite, vomiting, abdominal discomfort, or any confusion, call 911. Discharge Attestations Time Spent in Discharge Care*: greater than 30 min Quality Metrics Clinical Quality Measures [ No reported AMI, CVA or VTE this stay] Coding Level of Care Code Acute Chg FW DC note Diagnoses DKA (diabetic ketoacidosis) E11.10 Severe diabetic hypoglycemia E11.649 Breast cancer C50.919 Lung cancer C34.90 Shortness of breath R06.02 Right leg weakness R29.898
[2021-11-03] MEDS: insulin glargine 100 units/1 mL 15 UNIT SUBCUT (10:28)
== END 2021-11-03 11:42 | disposition home or self-care (01) | DRG 638 ==
LOC: ER 13:39 → ICU 14:45 → MEDSURG 11-02 16:13
PROVIDERS: Admitting Provider Family Medicine; Emergency Provider Emergency Medicine; PCP Registered Nurse; Visit Provider Internal Medicine
DX: E10.10 Type 1 diabetes mellitus with ketoacidosis without coma (principal); C79.51 Secondary malignant neoplasm of bone; S93.401A Sprain of unspecified ligament of right ankle, initial encounter; W18.30XA Fall on same level, unspecified, initial encounter; C50.912 Malignant neoplasm of unspecified site of left female breast; F41.8 Other specified anxiety disorders; E10.42 Type 1 diabetes mellitus with diabetic polyneuropathy; E10.22 Type 1 diabetes mellitus with diabetic chronic kidney disease; I12.9 Hypertensive chronic kidney disease with stage 1 through stage 4 chronic kidney disease, or unspecified chronic kidney disease; N18.9 Chronic kidney disease, unspecified; E10.51 Type 1 diabetes mellitus with diabetic peripheral angiopathy without gangrene; K21.9 Gastro-esophageal reflux disease without esophagitis; H40.9 Unspecified glaucoma; E03.9 Hypothyroidism, unspecified; Z85.118 Personal history of other malignant neoplasm of bronchus and lung; I25.10 Atherosclerotic heart disease of native coronary artery without angina pectoris; Z95.5 Presence of coronary angioplasty implant and graft; J45.909 Unspecified asthma, uncomplicated; M51.36 Other intervertebral disc degeneration, lumbar region; M48.061 Spinal stenosis, lumbar region without neurogenic claudication; E86.0 Dehydration; Z79.82 Long term (current) use of aspirin; Z92.3 Personal history of irradiation; Z92.21 Personal history of antineoplastic chemotherapy; Z79.818 Long term (current) use of other agents affecting estrogen receptors and estrogen levels
CPT/HCPCS: 36415; 36416; 70450; 71045; 71275; 72131; 73610; 80048; 80053; 80061; 81003; 82009; 82803; 82947; 82962; 82977; 83036; 83605; 83615; 83690; 83735; 83880; 84100; 84145; 84443; 84450; 84460; 84484; 85025; 85378; 86140; 87040; 87150; 87205; 93005; 93925; 93970; 94664; 96365; 96372; 96375; 97116; 97161; 97165; 97530; 99285; C9113; J0610; J1650; J1815 ×2; J3475; J3480; J7030; J7050; Q9967

== ENCOUNTER 2021-12-02 08:59 | Oncology outpatient (recurring) (ONCR) | payer MEDICARE, OTHER, SELFPAY | END 2021-12-25 23:59 | disposition home or self-care (01) | PROVIDERS: PCP Registered Nurse; Visit Provider Internal Medicine Medical Oncology | DX: Z08 Encounter for follow-up examination after completed treatment for malignant neoplasm (principal); Z85.3 Personal history of malignant neoplasm of breast; G62.0 Drug-induced polyneuropathy; T45.1X5A Adverse effect of antineoplastic and immunosuppressive drugs, initial encounter; Z92.25 Personal history of immunosuppression therapy | CPT/HCPCS: G0463 ==

== ENCOUNTER → 2021-12-04 14:33 | Outpatient (BNVA) | payer MEDICARE, OTHER, SELFPAY | PROVIDERS: PCP Family Medicine; Referring Provider Registered Nurse; Visit Provider Specialist | DX: E11.42 Type 2 diabetes mellitus with diabetic polyneuropathy (principal); Z79.4 Long term (current) use of insulin; Z79.84 Long term (current) use of oral hypoglycemic drugs | CPT/HCPCS: 95909; 95910 ==

== ENCOUNTER → 2021-12-09 10:21 | Outpatient (BNVA) | payer MEDICARE, OTHER, SELFPAY | PROVIDERS: PCP Family Medicine; Referring Provider Family Medicine; Visit Provider Orthopaedic Surgery | DX: M48.062 Spinal stenosis, lumbar region with neurogenic claudication (principal) | CPT/HCPCS: 72110; 99204 ==

== ENCOUNTER 2022-03-20 10:27 | Oncology outpatient (recurring) (ONCR) | payer MEDICARE, OTHER, SELFPAY | END 2022-03-27 23:59 | disposition home or self-care (01) | PROVIDERS: PCP Family Medicine; Visit Provider Internal Medicine Medical Oncology | DX: C79.51 Secondary malignant neoplasm of bone (principal); Z85.3 Personal history of malignant neoplasm of breast; Z79.810 Long term (current) use of selective estrogen receptor modulators (SERMs); Z92.3 Personal history of irradiation; M19.91 Primary osteoarthritis, unspecified site; Z92.25 Personal history of immunosuppression therapy | CPT/HCPCS: 99214 ==

== ENCOUNTER → 2022-05-06 14:00 | Outpatient (BNVA) | payer MEDICARE, OTHER, SELFPAY | PROVIDERS: PCP Family Medicine; Visit Provider Podiatrist Foot & Ankle Surgery | DX: E13.65 Other specified diabetes mellitus with hyperglycemia (principal); G62.9 Polyneuropathy, unspecified; B35.1 Tinea unguium; Z79.84 Long term (current) use of oral hypoglycemic drugs; Z79.4 Long term (current) use of insulin | CPT/HCPCS: 11721; 99204 ==

== ENCOUNTER 2022-07-17 10:00 | Oncology outpatient (recurring) (ONCR) | payer MEDICARE, OTHER, SELFPAY ==
[2022-07-17 10:57] LABS: Basophils # 0.1 10^3/uL (0.0-0.1); Basophils % 1.1 %; Eosinophils # 0.2 10^3/uL (0.0-0.8); Eosinophils % 2.3 %; Hematocrit 43.4 % (37.0-47.0); Hemoglobin 14.3 g/dL (11.5-15.3); Lymphocytes # 1.9 10^3/uL (0.8-4.8); Lymphocytes % 29.5 %; Mean Corpuscular HGB Conc 32.9 g/dL (30.0-36.0); Mean Corpuscular Hemoglobin 28.6 pg (28.0-34.0); Mean Corpuscular Volume 86.8 fl (81-99); Mean Platelet Volume 10.9 fL (7.4-10.4); Monocytes # 0.3 10^3/uL (0.2-0.9); Monocytes % 4.8 %; Neutrophils # 4.03 10^3/uL (1.8-7.7); Nucleated Red Blood Cells % 0 %; Platelet Count 250 10^3/cmm (130-400); Red Cell Distribution Width 12.8 % (12.1-15.1); White Blood Count 6.5 10^3/uL (4.0-10.0)
[2022-07-17 11:29] LABS: Alanine Aminotransferase 23 U/L (0-33); Albumin Level 4.1 g/dL (3.5-5.2); Alkaline Phosphatase 159 U/L (35-105); Aspartate Amino Transferase 20 U/L (0-32); Blood Urea Nitrogen 12 mg/dL (8-23); CA 15-3 14.7 U/mL (0-25); Calcium 9.5 mg/dL (8.5-10.5); Carbon Dioxide 29 mmol/L (22-29); Chloride 96 mmol/L (98-107); Globulin 2.9 g/dL (1.3-4.6); Glucose 291 mg/dL (65-115); Osmolality Calculated 288 mOsm/kg (285-295); Sodium 134 mmol/L (136-145); Total Bilirubin 0.4 mg/dL (0.15-1.2)
[2022-07-17 11:32] LABS: Anion Gap 13.7 (5-19); Potassium 4.7 mmol/L (3.5-5.1)
== END 2022-07-28 23:59 | disposition home or self-care (01) ==
PROVIDERS: PCP Family Medicine; Visit Provider Internal Medicine Medical Oncology
DX: C34.31 Malignant neoplasm of lower lobe, right bronchus or lung; C50.812 Malignant neoplasm of overlapping sites of left female breast; Z17.0 Estrogen receptor positive status [ER+]; C79.51 Secondary malignant neoplasm of bone
CPT/HCPCS: 36415; 80053; 85025; 86300; 99214

== ENCOUNTER 2022-07-30 13:07 | Outpatient (CLI) | payer MEDICARE, OTHER, SELFPAY ==
--- NOTE | 2022-07-30 13:10 | MM_ITS ---
WS: [id number] BILATERAL 3D TOMOSYNTHESIS DIGITAL DIAGNOSTIC MAMMOGRAPHY WITH CAD CLINICAL INFORMATION: HX OF BREAST CA COMPARISON: February 25, 2021 TECHNIQUE: Bilateral CC, MLO, and ML views. FINDINGS: Scattered fibroglandular densities bilaterally. Vascular calcification. A few incidental punctate dewey cifications. Evidence of prior lumpectomy outer LEFT breast posterior depth with parenchymal fibrosis . Volume loss LEFT breast. No suspicious focal mass, asymmetry, calcifications, or architectural distortion. No evidence of regan gnancy. MM/[place] [id number] IMPRESSION: BI-RADS: 2-Benign FOLLOW UP: 1 Year Follow-up Recommend return to annual diagnostic mammography.
== END 2022-07-30 13:08 | disposition home or self-care (01) ==
LOC: RAD 13:07
PROVIDERS: Visit Provider Internal Medicine Medical Oncology
DX: Z85.3 Personal history of malignant neoplasm of breast (principal)
CPT/HCPCS: 77062; G0279

== ENCOUNTER 2022-08-03 10:18 | Outpatient (CLI) | payer MEDICARE, OTHER, SELFPAY ==
--- NOTE | 2022-08-03 10:15 | MR_ITS ---
WS: [id number] MRI CERVICAL SPINE with and without contrast. HISTORY: breast ca, neck and back pain, metastatic bone disease, possible progression. COMPARISON: 08/13/2021 Technique: Multiplanar, multisequence with and without imaging of the cervical spine. MultiHance 17 mL IV. Mild increase in the cervical lordosis. Advanced degenerative disc disease. Multilevel areas of abnor mal signal throughout the vertebral bodies. Patient has known osteoblastic metastatic disease. There are areas of decreased signal throughout nearly all of the cervical vertebral bodies and the upper th oracic vertebral bodies consistent with osteoblastic bone disease. The extent of the osteoblastic fin dings has progressed since the prior study. There is not a lot of enhancement within the abnormal nathalia tebral bodies. Signal within the cord is normal. There is no high-grade compression. No signal abnormality in the clivus. C2-C3: Mild foraminal narrowing. C3-C4: Mild RIGHT foraminal narrowing. C4-C5: Mild facet arthritis. C5-C6: Diffuse annular disc bulging with disc and osteophyte encroaching into the foramina. Moderate bilateral foraminal stenosis. C6-C7: Mild osteophytic ridging. No high-grade stenosis. C7-T1: LEFT paracentral disc protrusion. Postcontrast imaging is negative for vertebral body enhancement. This may be treated metastatic disea se. No enhancing lesions along the cervical cord. No cervical adenopathy. MR/MR cervical spine wo/w [id number] IMPRESSION: 1. Progression of osteoblastic metastatic disease throughout the cervical spin e and upper thoracic spine since 08/13/2021. No appreciable enhancement within t he areas of progression. Osteoblastic bone disease may have variable enhancemen t on MRI imaging. Recommend follow-up bone scan or PET/CT imaging to evaluate f or extent of disease. 2. No cord compression or new fractures. 3. Moderate bilateral foraminal stenosis at C5-6.
--- NOTE | 2022-08-03 11:00 | MR_ITS ---
WS: [id number] MRI THORACIC SPINE with and without contrast. HISTORY: breast ca, neck and back pain COMPARISON: 08/13/2021 TECHNIQUE: Multiplanar sequences are performed in sagittal and axial planes. Study performed with and without contrast. MultiHance 17 mL IV. Quality of this examination is compromised by motion. Scoliosis thoracic spine and increase in thorac ic kyphosis. There is extensive osteoblastic metastatic disease throughout the thoracic spine. This has been previ ously described. There is complete osteoblastic involvement of the T1-T4 vertebral bodies. Significan t involvement but to a much lesser extent from T5 to T12. Disc spaces are narrowed. As compared to th e prior study of 08/13/2021 there has been a progression in the amount of osteoblastic involvement alt faizan these areas do not significantly enhance. Multilevel areas of disc protrusions and stenoses. Moderate stenosis at T10-11 and T11-12. The stenos is appears related to degenerative disc disease. No enhancing mass encroaching upon the thecal sac. Quality is significantly degraded by motion. Subtle areas of enhancement would easily be obscured. Fi brotic changes and volume loss and scarring at the lung bases. MR/MR thoracic spine wo/w [id number] IMPRESSION: 1. Quality of this examination is compromised by motion artifact. 2. Progression of osteoblastic metastatic disease throughout the thoracic spin e since 08/13/2021. There is no obvious enhancement throughout the new lesions. Osteoblastic disease can demonstrate variable enhancement on MRI. Consider foll ow-up PET/CT or bone scan imaging. 3. Extensive involvement of the thoracic vertebral bodies. No high-grade cord compression. 4. Moderate stenosis at T10-11 and T11-12 appears degenerative.
[2022-08-03] MEDS: gadobenate dimeglumine 20 mL vial IV (11:47)
== END 2022-08-03 10:19 | disposition home or self-care (01) ==
LOC: RAD 10:19
PROVIDERS: Visit Provider Internal Medicine Medical Oncology
DX: C50.919 Malignant neoplasm of unspecified site of unspecified female breast (principal); M54.2 Cervicalgia; M54.9 Dorsalgia, unspecified
CPT/HCPCS: 72156; 72157; A9577

== ENCOUNTER 2022-10-07 12:28 | Oncology outpatient (recurring) (ONCR) | payer MEDICARE, OTHER, SELFPAY | END 2022-10-25 23:59 | disposition home or self-care (01) | LOC: ONCMED 12:29 | PROVIDERS: PCP Registered Nurse; Visit Provider Internal Medicine Medical Oncology | DX: C50.812 Malignant neoplasm of overlapping sites of left female breast; Z17.0 Estrogen receptor positive status [ER+]; C79.51 Secondary malignant neoplasm of bone; G89.3 Neoplasm related pain (acute) (chronic); Z79.891 Long term (current) use of opiate analgesic; Z79.899 Other long term (current) drug therapy; Z92.21 Personal history of antineoplastic chemotherapy; Z92.3 Personal history of irradiation; Z92.25 Personal history of immunosuppression therapy; M51.35 Other intervertebral disc degeneration, thoracolumbar region; M79.604 Pain in right leg | CPT/HCPCS: 99214 ==

== ENCOUNTER → 2022-11-06 10:21 | Outpatient (BNVA) | payer MEDICARE, OTHER, SELFPAY | PROVIDERS: PCP Registered Nurse; Visit Provider Internal Medicine Medical Oncology | DX: C50.812 Malignant neoplasm of overlapping sites of left female breast (principal) | CPT/HCPCS: 80053; 85025; 86300 ==

== ENCOUNTER → 2022-11-17 13:40 | Outpatient (BNVA) | payer MEDICARE, OTHER, SELFPAY | PROVIDERS: PCP Registered Nurse; Visit Provider Internal Medicine | DX: E13.65 Other specified diabetes mellitus with hyperglycemia (principal); E13.649 Other specified diabetes mellitus with hypoglycemia without coma; C50.812 Malignant neoplasm of overlapping sites of left female breast; C34.31 Malignant neoplasm of lower lobe, right bronchus or lung; Z79.4 Long term (current) use of insulin; Z79.84 Long term (current) use of oral hypoglycemic drugs | CPT/HCPCS: 99214 ==

== ENCOUNTER → 2023-01-01 11:19 | Outpatient (BNVA) | payer MEDICARE, OTHER, SELFPAY | PROVIDERS: PCP Registered Nurse; Visit Provider Internal Medicine Medical Oncology | DX: C50.812 Malignant neoplasm of overlapping sites of left female breast (principal) | CPT/HCPCS: 80053; 85025; 86300 ==

== ENCOUNTER 2023-01-04 14:19 | Oncology outpatient (recurring) (ONCR) | payer MEDICARE, OTHER, SELFPAY | END 2023-01-25 23:59 | disposition home or self-care (01) | PROVIDERS: PCP Registered Nurse; Visit Provider Internal Medicine Medical Oncology | DX: C34.31 Malignant neoplasm of lower lobe, right bronchus or lung (principal); C50.812 Malignant neoplasm of overlapping sites of left female breast; Z17.0 Estrogen receptor positive status [ER+]; C79.51 Secondary malignant neoplasm of bone; Z79.890 Hormone replacement therapy; Z79.891 Long term (current) use of opiate analgesic; Z79.899 Other long term (current) drug therapy; Z92.21 Personal history of antineoplastic chemotherapy; Z79.810 Long term (current) use of selective estrogen receptor modulators (SERMs); Z92.3 Personal history of irradiation; M19.91 Primary osteoarthritis, unspecified site; Z92.25 Personal history of immunosuppression therapy; R20.0 Anesthesia of skin | CPT/HCPCS: 99214 ==

== ENCOUNTER → 2023-09-06 15:43 | Outpatient (BNVA) | payer MEDICARE, SELFPAY | PROVIDERS: PCP Registered Nurse; Visit Provider Internal Medicine Medical Oncology | DX: C50.812 Malignant neoplasm of overlapping sites of left female breast (principal); C34.31 Malignant neoplasm of lower lobe, right bronchus or lung; Z79.899 Other long term (current) drug therapy | CPT/HCPCS: 99215 ==

== ENCOUNTER 2023-09-10 13:25 | Outpatient (CLI) | payer MEDICARE, SELFPAY ==
--- NOTE | 2023-09-10 14:15 | USCV_ITS ---
Edie Dupont Age: 68 Gender: F : 1955 Exam Date: 09/10/2023 14:16 Ordering Phys: Justo Gonzalez MD Technologist: CT Exam Location: [facility] – [place]_ Indication: claudication Risk Factors: Previous Vascular Surgery: RIGHT LEFT BP: 133.0 / BP: 140.0/ 0 0 Waveform Velocity (cm/s) Velocity (cm/s) Waveform Triphasic 139.0 Iliac Prox 139.0 Triphasic Triphasic 89.0 Iliac Mid 156.0 Biphasic Biphasic 179.0 Iliac Distal 96.0 Biphasic Biphasic 136.0 MEDICARE BILLER 96.0 Biphasic Biphasic 99.0 SFA Prox 91.0 Biphasic Biphasic 138.0 SFA Mid 59.6 Biphasic Biphasic SFA Dist Biphasic 117.0 63.0 Biphasic 110.0 POP 61.0 Biphasic Monophasic 274.0 [employer]ER LO[employer] SPECIALIST 95.0 Monophasic Monophasic 104.0 DPA 15.0 Monophasic 0.7 ANUJ 0.7 FINDINGS Moderate, dense, irregular diffuse plaque in the iliac, femoral and infrapopliteal vessels bilaterally. Resting ANUJ 0.7 bilaterally CONCLUSIONS 1. Abnormal resting ABIs bilaterally, suggesting moderate peripheral arterial disease 2. Moderate diffuse plaques bilaterally in the above-mentioned iliac, femoral and infrapopliteal vessels bilaterally. 3. Compared to the study from 11/01/2021, there is slight improvement in the resting ANUJ(was 0.5 on the right side and 0.6 on the left) Consider exercise ANUJ, to better evaluate the functional significance, if clinically indicated Dr Peace Pineda MD [facility] (Electronically Signed) Final Date: 10 September 2023 19:00 S
== END 2023-09-10 13:26 | disposition home or self-care (01) ==
LOC: RAD 13:25
PROVIDERS: PCP Internal Medicine Medical Oncology; Visit Provider Internal Medicine Medical Oncology
DX: I70.213 Atherosclerosis of native arteries of extremities with intermittent claudication, bilateral legs (principal); C50.812 Malignant neoplasm of overlapping sites of left female breast; C79.51 Secondary malignant neoplasm of bone; R09.89 Other specified symptoms and signs involving the circulatory and respiratory systems
CPT/HCPCS: 93925

== ENCOUNTER 2023-09-13 13:14 | Outpatient (CLI) | payer MEDICARE, SELFPAY ==
--- NOTE | 2023-09-13 13:31 | MM_ITS ---
WS: [id number] BILATERAL 3D TOMOSYNTHESIS DIGITAL DIAGNOSTIC MAMMOGRAPHY WITH CAD CLINICAL INFORMATION: ANNUAL - HX BR CA HISTORY: History of LEFT breast cancer with lumpectomy COMPARISON: 2022 TECHNIQUE: Bilateral CC, MLO, and ML views. FINDINGS: Scattered fibroglandular densities bilaterally. Postoperative changes LEFT breast lumpectomy with par enchymal fibrosis. Vascular calcifications. A few incidental punctate calcifications. Surgical clips LEFT breast. No suspicious focal mass, asymmetry, calcifications, or architectural distortion. No evidence of regan gnancy. IMPRESSION: MM/[place] [id number] BI-RADS: 2-Benign FOLLOW UP: 1 Year Follow-up Recommend return to annual diagnostic mammography.
== END 2023-09-13 13:15 | disposition home or self-care (01) ==
LOC: RAD 13:15
PROVIDERS: PCP Internal Medicine Medical Oncology; Visit Provider Registered Nurse
DX: Z85.3 Personal history of malignant neoplasm of breast (principal); R92.323 Mammographic fibroglandular density, bilateral breasts; N60.32 Fibrosclerosis of left breast; R92.1 Mammographic calcification found on diagnostic imaging of breast
CPT/HCPCS: 77062; 99215; G0279

== ENCOUNTER → 2023-11-11 14:31 | Outpatient (BNVA) | payer MEDICARE, SELFPAY | PROVIDERS: PCP Internal Medicine Medical Oncology; Visit Provider Orthopaedic Surgery | DX: M48.062 Spinal stenosis, lumbar region with neurogenic claudication (principal) | CPT/HCPCS: 72110; 99214 ==

== ENCOUNTER → 2023-11-24 09:11 | Outpatient (BNVA) | payer MEDICARE, SELFPAY | PROVIDERS: PCP Internal Medicine Medical Oncology; Visit Provider Internal Medicine Medical Oncology | DX: C34.31 Malignant neoplasm of lower lobe, right bronchus or lung (principal) | CPT/HCPCS: 80053; 85025 ==

== ENCOUNTER 2023-11-25 14:26 | Oncology outpatient (recurring) (ONCR) | payer MEDICARE, SELFPAY | END 2023-11-26 23:59 | disposition home or self-care (01) | PROVIDERS: PCP Internal Medicine Medical Oncology; Visit Provider Internal Medicine Medical Oncology | DX: C50.812 Malignant neoplasm of overlapping sites of left female breast | CPT/HCPCS: 99214 ==

== ENCOUNTER → 2023-12-21 10:11 | Outpatient (BNVA) | payer MEDICARE, SELFPAY | PROVIDERS: PCP Internal Medicine Medical Oncology; Visit Provider Internal Medicine Medical Oncology | DX: C50.812 Malignant neoplasm of overlapping sites of left female breast (principal); C79.51 Secondary malignant neoplasm of bone | CPT/HCPCS: 80053; 85025 ==

== ENCOUNTER 2023-12-28 15:11 | Oncology outpatient (recurring) (ONCR) | payer MEDICARE, SELFPAY ==
--- NOTE | 2023-11-29 10:30 | CT_ITS ---
WS: [id number] CT CHEST, ABDOMEN AND PELVIS WITH CONTRAST HISTORY: breast cancer, liver enzyme elevation, history of lung cancer. TECHNIQUE: Contiguous 5 mm axial imaging performed through the chest, abdomen and pelvis with IV cont rast, oral contrast has been provided. Coronal and sagittal reformats chest. Coronal and sagittal ref ormats through the abdomen and pelvis. All CT scans at [facility] use at least one of these d ose optimization techniques: automated exposure control; mA and/or kV adjustment per patient size (in cludes targeted exams where dose is matched to clinical indication); or iterative reconstruction. CONTRAST: Omnipaque 350; 100 mL IV. DLP: 1197.10 mGy.cm COMPARISON: 08/12/2021, 10/31/2021, Chest CT: Mild emphysema. Posttreatment related fibrosis is reidentified in the RIGHT lower lobe with pleural thickening. There are additional bilateral very small pulmonary nodules which were also pres ent on 10/31/2021. No new nodules. Heart is normal size. No pericardial or pleural effusions. No medias tinal or hilar adenopathy. Mild atherosclerosis aorta. Central pulmonary arteries are normal. Abdomen CT: Normal size liver. There are a few scattered very subtle hypodensities which were not pre sent on the prior study. The largest is 14 mm in the posterior RIGHT lobe. There is an additional are a near the falciform ligament which may be focal fatty sparing. There is also mild central intrahepat ic duct dilatation which is new. Portal vein is negative. Gallbladder is abnormal. There is mildly co ntracted gallbladder with diffuse wall thickening and cholelithiasis. The common bile duct does not a ppear dilated. Pancreas is markedly atrophied. Normal size spleen. No adrenal mass. No renal obstruction. Extensive atherosclerosis aorta. Heavy calcification in the mesenteric arteries. Suspect component of mesenteri c artery stenosis due to the extensive plaque particularly within the SMA. Mild soft tissue anasarca. No ascites. Diffuse constipation. No GI tract obstruction. Normal appendix . Pelvic CT: Normally distended urinary bladder. No free fluid. No adenopathy. There is extensive osteoblastic metastatic disease throughout all visualized bones in the chest, abdo men and pelvis. This is known osteoblastic metastatic disease which has been previously described. CT/CT chest abdpel w/*[id number] IMPRESSION: 1. New, very subtle hypodensities scattered throughout the liver are highly zimmerman spicious for metastatic sites. These are very poorly defined with the largest m easuring 14 mm. 2. Additional central mild intrahepatic duct dilatation of uncertain etiology. The extrahepatic common bile duct appears normal size. 3. Abnormal gallbladder. Diffuse gallbladder wall thickening with cholelithias is. Gallbladder is contracted and small caliber. Correlate for possible acute c holecystitis. 4. Patient has known and recently described extensive osseous metastatic disea se throughout the bones of the chest, abdomen and pelvis. Recent spine MRI desc ribed metastatic disease in further detail. 5. Stable postoperative treatment changes RIGHT upper lobe. There are addition al small pulmonary nodules which are stable since 10/31/2021. 6. No ascites or adenopathy. 7. Severe atherosclerosis abdominal aorta and mesenteric arteries. No GI tract ischemia.
[2023-11-29] MEDS: iohexol 350 mg/mL 500 mL Btl (per mL) PO (10:57)
[2023-11-29] MEDS: iohexol 350 mg/mL 500 mL Btl (per mL) IV (10:57)
--- NOTE | 2023-12-28 15:15 | MR_ITS ---
WS: [id number] MRI/MRCP OF THE ABDOMEN WITHOUT GADOLINIUM ENHANCEMENT TECHNIQUE: Coronal T2 Fase BH, Axial T2 Fase BH, Axial T2 FS BH, Zxial 3D Alfaro BH, Axial DWI BH, 2D MRCP Radial BH, 3D MRCP (Resp), and Axial 3D Dyn BH Post sequences. CLINICAL INFORMATION: focus on liver COMPARISON: CT 11/29/2023 FINDINGS: Some images degraded by respiratory motion. Contrast was administered but minimal parenchym al enhancement due to IV malfunction (blown vein) additional IV access could not be obtained for fozia tional contrast attempt. Contracted gallbladder with cholelithiasis and wall thickening. Small amount of fluid in the gallblad anusha fossa. Mild intrahepatic biliary ductal dilatation similar to previous. Central bile duct thicken ing at the rajani hepatis. Hepatomegaly. T2 hyperintense lesions in the liver correspond to the lesion seen on the prior CT. These do not appear cystic and are suspicious for metastatic disease. Insuffic ient contrast to assess for enhancement. No hydronephrosis in either kidney. Adrenal glands appear normal. Splenic artery calcification. Erum l spleen. Atrophic pancreas. Subsegmental atelectasis RIGHT greater than LEFT lower lobes. MR/MR abdomen wo/w con* [id number] Impression: Limited examination due to respiratory motion. No contrast enhancem ent due to IV malfunction. 1. Lesions seen on the prior CT correspond to a few T2 hyperintense lesions in the LEFT and RIGHT hepatic lobes that do not appear cystic and suspicious for metastatic disease considering history. 2. Central bile duct thickening at the rajani hepatis with intrahepatic ductal dilatation is indeterminant and consider further evaluation with ERCP to evalua te for biliary neoplasm/cholangiocarcinoma. Recommend correlation with cholangi tis symptoms. 3. Gallbladder is contracted with gallbladder wall thickening and mild edema. Cholelithiasis. Small amount of fluid in the gallbladder fossa. Findings suspic ious for cholecystitis. This is similar to the prior CT. Common bile duct not w ell visualized in this study. Note chronic gallbladder inflammation can lead to bilioenteric fistula. 4. Subsegmental atelectasis in the RIGHT greater than LEFT lower lobes.
== END 2023-12-28 23:59 | disposition home or self-care (01) ==
LOC: RAD 15:11 → ONCMED 01-11 07:35
PROVIDERS: PCP Internal Medicine Medical Oncology; Visit Provider Internal Medicine Medical Oncology
DX: R93.89 Abnormal findings on diagnostic imaging of other specified body structures (principal); C50.812 Malignant neoplasm of overlapping sites of left female breast; C79.51 Secondary malignant neoplasm of bone; K76.9 Liver disease, unspecified; K80.20 Calculus of gallbladder without cholecystitis without obstruction; J98.11 Atelectasis
CPT/HCPCS: 71260; 74177; 74183; Q9967

== ENCOUNTER 2024-01-24 14:40 | Oncology outpatient (recurring) (ONCR) | payer MEDICARE, SELFPAY ==
[2024-01-24 15:08] LABS: Basophils % 0.8 %; Eosinophils # 0.1 10^3/uL (0.0-0.8); Eosinophils % 2.5 %; Hematocrit 38.4 % (36-47); Lymphocytes # 1.7 10^3/uL (0.8-4.8); Lymphocytes % 34.7 %; Mean Corpuscular HGB Conc 33.3 g/dL (30-55); Mean Corpuscular Hemoglobin 29.3 pg (27-33); Mean Corpuscular Volume 87.9 fl (85-98); Mean Platelet Volume 11.8 fL (7.4-10.4); Monocytes # 0.2 10^3/uL (0.2-0.9); Neutrophils # 2.71 10^3/uL (1.8-7.7); Neutrophils % 56.8 %; Nucleated Red Blood Cells % 0 %; Platelet Count 147 10^3/cmm (157-399); Red Blood Count 4.37 10^6/uL (3.85-5.65); Red Cell Distribution Width 13.2 % (12.1-15.1); White Blood Count 4.78 10^3/uL (3.29-11.43)
[2024-01-24 15:58] LABS: Alanine Aminotransferase 96 U/L (0-33); Albumin Level 3.4 g/dL (3.5-5.2); Anion Gap 17.7 (5-19); Aspartate Amino Transferase 99 U/L (0-32); Blood Urea Nitrogen 9 mg/dL (8-23); Calcium 8.8 mg/dL (8.5-10.5); Carbon Dioxide 28 mmol/L (22-29); Chloride 99 mmol/L (98-107); Creatinine Clr Calc Pharmacy 64.8612; Globulin 2.8 g/dL (1.3-4.6); Glomerular Filtration Rate 70.9 mL/min (90-130); Glucose 452 mg/dL (65-115); Osmolality Calculated 306 mOsm/kg (285-295); Potassium 5.7 mmol/L (3.5-5.1); Sodium 139 mmol/L (136-145); Total Bilirubin 0.5 mg/dL (0.15-1.2); Total Protein 6.2 g/dL (6.6-8.7)
[2024-01-24 16:00] LABS: Alkaline Phosphatase 1058 U/L (35-105)
== END 2024-01-26 23:59 | disposition home or self-care (01) ==
LOC: ONCMED 14:41
PROVIDERS: PCP Internal Medicine Medical Oncology; Visit Provider Internal Medicine Medical Oncology
DX: C50.812 Malignant neoplasm of overlapping sites of left female breast (principal); R74.8 Abnormal levels of other serum enzymes; C79.51 Secondary malignant neoplasm of bone; R93.2 Abnormal findings on diagnostic imaging of liver and biliary tract; R91.8 Other nonspecific abnormal finding of lung field; I70.0 Atherosclerosis of aorta
CPT/HCPCS: 36415; 80053; 85025; 99215

== ENCOUNTER 2024-04-13 17:42 | Emergency (ER) | payer MEDICARE, SELFPAY ==
[2024-04-13] VITALS (8 sets, daily range): BP systolic 100–137; BP diastolic 59–73; PULSE 80–92; RESP 16; TEMP 36.7; O2SAT 94–99
[2024-04-13 17:59] LABS: Glucose Point of Care 100 mg/dL (70-110)
--- NOTE | 2024-04-13 18:16 | ED_ITS ---
HPI - General Adult 2 General: Chief complaint: General Medical Stated complaint: hypoglycemic Time Seen by Provider: 04/13/24 17:43 History of Present Illness: 68-year-old female with history of diabe vi who was found unresponsive at home by her daughter and found to be hypoglycemic and transferred to the emergency room by ambulance. She is now responsive and glucose is 100 on presentation. She received 2 D10 boluses. Sugar got as high as 175 but is back down to 100 now she says she has not been eating as well because she was recently diagnosed with alpha gal and taste good. She said all she has been eating is fresh fruit. No vomiting. No abdominal pain. No fevers. No cough. Related Data Home Medications Medication Instructions Recorded Confirmed esomeprazole magnesium 20 mg 40 mg PO DAILY 06/14/20 01/24/24 capsule,delayed release (Nexium) levalbuterol tartrate 45 2 inh inhalation Q6H PRN Shortness 06/14/20 01/24/24 mcg/actuation aerosol inhaler Of Breath (Xopenex HFA) nitroglycerin 0.4 mg sublingual 0.4 mg sublingual Q5M PRN Chest 06/14/20 01/24/24 tablet (Nitrostat) Pain Injection For Her Bones See Rx Instructions .Route .COMPLEX 10/31/21 01/24/24 acyclovir 400 mg tablet 400 mg PO BID breakouts 12/18/21 01/24/24 cyclobenzaprine 10 mg tablet 10 mg PO TID PRN Spasms 07/14/22 01/24/24 gabapentin 800 mg tablet 800 mg PO QID 07/14/22 01/24/24 levothyroxine 100 mcg tablet 100 mcg PO 01/24/24 01/24/24 Previous Rx's Medication Instructions Recorded pen needle, diabetic 32 gauge x #540 ea 08/29/20 (BD Kellie 2nd Gen Pen Needle) flash glucose scanning reader #1 ea 04/30/21 (FreeStyle Sarah 2 [place]) flash glucose sensor (FreeStyle #3 ea 11/11/21 Sarah 2 Sensor kit) aspirin 81 mg tablet,delayed 81 mg PO QAM 90 days #90 tabs 12/18/21 release isosorbide mononitrate 30 mg 30 mg PO DAILY 90 days #90 tabs 12/18/21 tablet,extended release 24 hr metformin 500 mg tablet 1,000 mg (2 x 500 mg) PO BID 90 12/18/21 days #360 tabs venlafaxine 150 mg 150 mg PO DAILY 90 days #90 caps 12/18/21 capsule,extended release 24 hr (Effexor XR) atorvastatin 80 mg tablet 80 mg PO BEDTIME 90 days #90 tabs 11/17/22 furosemide 40 mg tablet See Rx Instructions .Route 04/05/23 .COMPLEX #45 tabs colestipol 1 gram tablet 5 g (5 x 1 gram) PO ONCE #150 tabs 02/22/24 Allergies Allergy/AdvReac Type Severity Reaction Status Date / Time abemaciclib [From Verzenio] Allergy ALGY-Difficulty Verified 01/24/24 14:45 Swallowing albuterol Allergy ADR/ALGY-Pa Verified 01/24/24 14:45 lpitations Penicillins Allergy ALGY-Rash Verified 01/24/24 14:45 pregabalin [From Lyrica] Allergy ALGY-Joint Verified 01/24/24 14:45 Pain Sulfa (Sulfonamide Allergy Unknown Verified 01/24/24 14:45 Antibiotics) Review of Systems 2 Narrative: Constitutional symptoms: Negative except as documented in HPI. Skin symptoms: Negative except as documented in HPI. Eye symptoms: Negative except as documented in HPI. ENMT symptoms: Negative except as documented in HPI. Respiratory symptoms: Negative except as documented in HPI. Cardiovascular symptoms: Negative except as documented in HPI. Gastrointestinal symptoms: Negative except as documented in HPI. Genitourinary symptoms: Negative except as documented in HPI. Musculoskeletal symptoms: Negative except as documented in HPI. Neurologic symptoms: Negative except as documented in HPI. Psychiatric symptoms: Negative except as documented in HPI. Endocrine symptoms: Negative except as documented in HPI. PFSH ED 2 PFSH: Medical History Spinal stenosis at L4-L5 level Degenerative joint disease of spine Diabetic neuropathy Metastatic breast cancer Asthma Dyslipidemia Coronary artery disease Primary adenocarcinoma of lower lobe of right lung Hyperosmolar hyperglycemic state (HHS) Severe diabetic hypoglycemia Diabetes, type 1.5, uncontrolled, managed as type 1 Hypothyroidism Hypertension Glaucoma Herpes simplex Depression GERD (gastroesophageal reflux disease) Surgical History S/P left rotator cuff repair Status post carpal tunnel release of both wrists H/O heart artery stent H/O esophagogastroduodenoscopy (07/04/20) History of lumpectomy of left breast H/O foot surgery History of tonsillectomy H/O colonoscopy (07/04/20) yrs ago Family History Mother Lung disease Lung cancer Other CAD (coronary artery disease) Cancer Hyperlipidemia Hypertension Denies family history of Diabetes Clotting disorder Dementia Psychiatric illness Chronic kidney disease (CKD) Suicide Anesthesia complication Bleeding disorder Stroke Social History Smoking and tobacco/nicotine status: unknown if used tobacco/nicotine Alcohol intake: never Substance/Drug Use: never Lives independently: Yes Marital status: Single Current occupational status: retired Physical Exam 2 Narrative: EXAM NARRATIVE: General: Alert, no acute distress. Skin: Warm, dry. Head: Normocephalic, atraumatic. Neck: Supple, trachea midline. Eye: Extraocular movements are intact. Ears, nose, mouth and throat: mucosa moist. Cardiovascular: Regular, Normal peripheral perfusion. Respiratory: Lungs are clear to auscultation, respirations are non-labored, breath sounds are equal, Symmetrical chest wall expansion. Gastrointestinal: Soft, Nontender, Non distended Musculoskeletal: Normal ROM, no deformity. Neurological: Alert and oriented, No focal neurological deficit observed. Psychiatric: Cooperative, appropriate mood & affect. Course 2 Vital Signs: Vital signs: Vital Signs Temperature 98.1 F 04/13/24 17:46 Pulse Rate 81 04/13/24 21:00 Respiratory Rate 16 04/13/24 17:46 Blood Pressure 137/69 04/13/24 21:00 Pulse Oximetry 94 04/13/24 21:00 Oxygen Delivery Me thod Room Air 04/13/24 19:15 MDM - General Adult Medical Decision Making Medical decision making: Differential diagnosis for the patient with hypoglycemia would include but not be limited to and would be based on the above HPI review of systems and physical exam: DKA. Dehydration. Renal failure. Concern for electrolyte abnormalities. Concern for underlying infection that might result in hypoglycemia. Orders placed to evaluate differential diagnosis of the patient with hyperglycemia are based on the above differential, HPI and physical exam. Lab Review: Laboratory results were reviewed and interpreted by myself the emergency room physician. Lab work is fairly unremarkable. No leukocytosis. No anemia. No renal failure. Creatinine is mildly above her baseline at 1.2. No urinary tract infection. Alk phos is elevated but has been elevated higher than this previously and is coming down. Unclear etiology I reviewed the patient's medical record. Reexamination: Patient remained stable. No increased work of breathing. No altered mental status. No focal motor deficits. Glucose has remained stable now. Tolerating p.o. Assessment and plan: Hypoglycemia ?Encourage patient to be more vigilant about eating. Despite her alpha gal. She may have to eat some things that she does not particularly find palatable - Discharged home - Discussed findings and plan with patient. Answered any questions. - All laboratory values were reviewed and interpreted personally by myself, the ER physician - All imaging was reviewed and interpreted personally by myself, the ER physician. - Evaluation and treatment of this problem were appropriate in the emergency setting Lab Data 04/13/24 20:42 04/13/24 20:42 Laboratory Results WBC 7.99 10^3/uL (3.29-11.43) 04/13/24 20:42 RBC 4.54 10^6/uL (3.85-5.65) 04/13/24 20:42 Hgb 13.40 g/dL (11.27-16.99) 04/13/24 20:42 Hct 42.1 % (36-47) 04/13/24 20:42 MCV 92.7 fl (85-98) 04/13/24 20:42 MCH 29.5 pg (27-33) 04/13/24 20:42 MCHC 31.8 g/dL (30-55) 04/13/24 20:42 RDW 13.8 % (12.1-15.1) 04/13/24 20:42 Plt Count 157 10^3/cmm (157-399) 04/13/24 20:42 MPV 11.1 fL (7.4-10.4) H 04/13/24 20:42 Neut % (Auto) 78.1 % 04/13/24 20:42 Lymph % (Auto) 17.6 % 04/13/24 20:42 [place] % (Auto) 3.4 % 04/13/24 20:42 Eos % (Auto) 0.1 % 04/13/24 20:42 Baso % (Auto) 0.3 % 04/13/24 20:42 Neut # (Auto) 6.24 10^3/uL (1.8-7.7) 04/13/24 20:42 Lymph # (Auto) 1.4 10^3/uL (0.8-4.8) 04/13/24 20:42 [place] # (Auto) 0.3 10^3/uL (0.2-0.9) 04/13/24 20:42 Eos # (Auto) 0.0 10^3/uL (0.0-0.8) 04/13/24 20:42 Baso # (Auto) 0.0 10^3/uL (0.0-0.1) 04/13/24 20:42 Nucleated RBC % (auto) 0 % 04/13/24 20:42 Nucleated RBCs # 0.0 /100WBC 04/13/24 20:42 Sodium 139 mmol/L (136-145) 04/13/24 20:42 Potassium 4.2 mmol/L (3.5-5.1) 04/13/24 20:42 Chloride 100 mmol/L (98-107) 04/13/24 20:42 Carbon Dioxide 25 mmol/L (22-29) 04/13/24 20:42 Anion Gap 18.2 (5-19) 04/13/24 20:42 BUN 11 mg/dL (8-23) 04/13/24 20:42 Creatinine 1.2 mg/dL (0.5-0.9) H 04/13/24 20:42 GFR Calculation 44.4 mL/min (90-130) L 04/13/24 20:42 Glucose 90 mg/dL (65-115) 04/13/24 20:42 POC Glucose 92 mg/dL (70-110) 04/13/24 21:39 Calculated Osmolality 287 mOsm/kg (285-295) 04/13/24 20:42 Calcium 8.7 mg/dL (8.5-10.5) 04/13/24 20:42 Total Bilirubin 0.4 mg/dL (0.15-1.2) 04/13/24 20:42 AST 70 U/L (0-32) H 04/13/24 20:42 ALT 44 U/L (0-33) H 04/13/24 20:42 Alkaline Phosphatase 709 U/L (35-105) H 04/13/24 20:42 Total Protein 6.3 g/dL (6.6-8.7) L 04/13/24 20:42 Albumin 3.5 g/dL (3.5-5.2) 04/13/24 20:42 Globulin 2.8 g/dL (1.3-4.6) 04/13/24 20:42 Urine Color Yellow (Yellow) 04/13/24 19:11 Urine Appearance Clear (CLEAR) 04/13/24 19:11 Urine pH 7.0 (5-7) 04/13/24 19:11 Ur Specific [place] 1.004 (1.005-1.030) L 04/13/24 19:11 Urine Protein Negative (Negative) 04/13/24 19:11 Urine Glucose (UA) Negative (Normal) 04/13/24 19:11 Urine Ketones Negative (Negative) 04/13/24 19:11 Urine Blood Negative (Negative) 04/13/24 19:11 Urine Nitrate Negative (Negative) 04/13/24 19:11 Urine Bilirubin Negative (Negative) 04/13/24 19:11 Urine Urobilinogen 0.2 mg/dL (Negative) 04/13/24 19:11 Ur Leukocyte Esterase Negative (Negative) 04/13/24 19:11 Urine RBC 0-2 /hpf (0-2) 04/13/24 19:11 Urine WBC 0-5 /hpf (0-5) 04/13/24 19:11 Ur Squamous Epith Cells 0-5 /hpf (0-5) 04/13/24 19:11 Amorphous Sediment Not Reportable 04/13/24 19:11 Urine Bacteria None seen /hpf (NONE) 04/13/24 19:11 Hyaline Casts 0-4 /lpf H 04/13/24 19:11 No radiology studies performed this visit Discharge Plan Discharge Patient Disposition: Home Clinical Impression: Hypoglycemia Condition: Stable Prescriptions: No Action levalbuterol tartrate [Xopenex HFA] 45 mcg/actuation HFA aerosol inhaler 2 inh inhalation Q6H PRN (Reason: Shortness Of Breath) esomeprazole magnesium [Nexium] 20 mg capsule,delayed release(DR/EC) 40 mg PO DAILY nitroglycerin [Nitrostat] 0.4 mg tablet, sublingual 0.4 mg sublingual Q5M PRN (Reason: Chest Pain) Rx Instructions: do not exceed 3 doses per episode (DME) pen needle, diabetic [BD Kellie 2nd Gen Pen Needle] 32 gauge x 5/32 needle See Rx Instructions .ROUTE .MEDSUPPLY Qty: 540 3RF Rx Instructions: As directed gabapentin 800 mg tablet 800 mg PO QID levothyroxine 100 mcg tablet 100 mcg PO metformin 500 mg tablet 1,000 mg PO BID 90 Days Qty: 360 1RF venlafaxine [Effexor XR] 150 mg capsule,extended release 24hr 150 mg PO DAILY 90 Days Qty: 90 1RF acyclovir 400 mg tablet 400 mg PO BID aspirin 81 mg tablet,delayed release (DR/EC) 81 mg PO QAM 90 Days Qty: 90 1RF isosorbide mononitrate 30 mg tablet extended release 24 hr 30 mg PO DAILY 90 Days Qty: 90 1RF atorvastatin 80 mg tablet 80 mg PO BEDTIME 90 Days Qty: 90 1RF (DME) FreeStyle Sarah 2 [place] Misc See Rx Instructions .Route Qty: 1 3RF Rx Instructions: Check BS 4 times a day. (DME) FreeStyle Sarah 2 Sensor Kit See Rx Instructions .Route Qty: 3 3RF Rx Instructions: As directed furosemide 40 mg tablet See Rx Instructions .ROUTE .COMPLEX Qty: 45 0RF Dose Instruction: TAKE 1 & 1/2 (ONE & ONE-HALF) TABLETS BY MOUTH ONCE DAILY IN THE MORNING FOR 90 DAYS. PATIENT NEEDS AN APPOINTMENT FOR ADDITIONAL REFILLS. Rx Instructions: TAKE 1 & 1/2 (ONE & ONE-HALF) TABLETS BY MOUTH ONCE DAILY IN THE MORNING FOR 90 DAYS. PATIENT NEEDS AN APPOINTMENT FOR ADDITIONAL REFILLS. colestipol 1 gram tablet 5 g PO ONCE Qty: 150 0RF Injection For Her Bones See Rx Instructions .ROUTE .COMPLEX Rx Instructions: as directed cyclobenzaprine 10 mg tablet 10 mg PO TID PRN (Reason: Spasms) Discharge Orders: Discharge ED (Routine); Ordered 04/13/24 Ordered By: Donna Lewis Referrals: Justo Gonzalez MD [Primary Care Provider] - Discharge Diet: As Directed Discharge Activity: Increase activity as tolerated Patient Instructions: Hypoglycemia in a Person with Diabetes (ED) Activity Restrictions/Additional Instructions: Thank you for choosing [facility] for your healthcare needs today. Please realize this is an emergency room and that we are providing you with a medical screening exam and this may not be complete and all inclusive of all the testing and or work up that you may need to determine your ailment or severity of your illness. You have been screened and evaluated and felt safe for discharge. Health conditions do change or evolve sometimes and as such it is important that you follow up with your Primary Doctor to be re checked, 3-5 days is a general good time frame for follow up. You are always welcome to return to the ED for re assessment if your symptoms are worsening or you have new concerns Coding Level of Care Code ED [employer] for Dimitri Reynoso
[2024-04-13 18:24] LABS: Glucose Point of Care 96 mg/dL (70-110)
[2024-04-13 19:39] LABS: Glucose Point of Care 78 mg/dL (70-110)
[2024-04-13 19:46] LABS: Bacteria Urine None Seen /hpf; Hyaline Casts Urine 0-4 /lpf; RBC Urine 0-2 /hpf (0-2); Squamous Epithelial Cell Urine 0-5 /hpf (0-5); WBC Urine 0-5 /hpf (0-5)
[2024-04-13 20:49] LABS: Basophils % 0.3 %; Eosinophils % 0.1 %; Hematocrit 42.1 % (36-47); Lymphocytes # 1.4 10^3/uL (0.8-4.8); Lymphocytes % 17.6 %; Mean Corpuscular HGB Conc 31.8 g/dL (30-55); Mean Corpuscular Hemoglobin 29.5 pg (27-33); Mean Corpuscular Volume 92.7 fl (85-98); Mean Platelet Volume 11.1 fL (7.4-10.4); Monocytes # 0.3 10^3/uL (0.2-0.9); Monocytes % 3.4 %; Neutrophils # 6.24 10^3/uL (1.8-7.7); Neutrophils % 78.1 %; Nucleated Red Blood Cells % 0 %; Platelet Count 157 10^3/cmm (157-399); Red Blood Count 4.54 10^6/uL (3.85-5.65); Red Cell Distribution Width 13.8 % (12.1-15.1); White Blood Count 7.99 10^3/uL (3.29-11.43)
[2024-04-13 20:50] LABS: Bilirubin Urine Negative (Negative); Blood Urine Negative (Negative); Glucose Urine UA Negative (Normal); Ketones Urine Negative (Negative); Leukocyte Esterase Urine Negative (Negative); Nitrate Urine Negative (Negative); Protein Urine Negative (Negative); Specific Gravity, Urine 1.004 (1.005-1.030); Urine Appearance Clear (CLEAR); Urine Color Yellow (Yellow); Urobilinogen Urine 0.2 mg/dL (Negative)
[2024-04-13 21:09] LABS: Alanine Aminotransferase 44 U/L (0-33); Albumin Level 3.5 g/dL (3.5-5.2); Alkaline Phosphatase 709 U/L (35-105); Anion Gap 18.2 (5-19); Aspartate Amino Transferase 70 U/L (0-32); Blood Urea Nitrogen 11 mg/dL (8-23); Calcium 8.7 mg/dL (8.5-10.5); Carbon Dioxide 25 mmol/L (22-29); Chloride 100 mmol/L (98-107); Globulin 2.8 g/dL (1.3-4.6); Glomerular Filtration Rate 44.4 mL/min (90-130); Glucose 90 mg/dL (65-115); Osmolality Calculated 287 mOsm/kg (285-295); Potassium 4.2 mmol/L (3.5-5.1); Sodium 139 mmol/L (136-145); Total Bilirubin 0.4 mg/dL (0.15-1.2); Total Protein 6.3 g/dL (6.6-8.7)
[2024-04-13 21:42] LABS: Glucose Point of Care 92 mg/dL (70-110)
[2024-04-13] MEDS: famotidine 20 mg/2 mL INJ 40 MG IVP (21:51)
== END 2024-04-13 22:42 | disposition home or self-care (01) ==
PROVIDERS: Emergency Provider Emergency Medicine; PCP Internal Medicine Medical Oncology
DX: E13.649 Other specified diabetes mellitus with hypoglycemia without coma (principal); Z79.82 Long term (current) use of aspirin; Z79.84 Long term (current) use of oral hypoglycemic drugs; Z85.3 Personal history of malignant neoplasm of breast; E78.5 Hyperlipidemia, unspecified; I25.10 Atherosclerotic heart disease of native coronary artery without angina pectoris; Z85.118 Personal history of other malignant neoplasm of bronchus and lung; I10 Essential (primary) hypertension
CPT/HCPCS: 36416; 80053; 81001; 82962; 85025; 96374; 99284; J3490

== ENCOUNTER 2024-05-08 09:25 | Oncology outpatient (recurring) (ONCR) | payer MEDICARE, SELFPAY | END 2024-05-27 23:59 | disposition home or self-care (01) | PROVIDERS: PCP Internal Medicine Medical Oncology; Visit Provider Internal Medicine Medical Oncology | DX: C50.812 Malignant neoplasm of overlapping sites of left female breast (principal); C79.51 Secondary malignant neoplasm of bone | CPT/HCPCS: 99214 ==